=== PATIENT | female | born 1940 | race African-American/Black ===

== ENCOUNTER 2021-07-18 11:56 | Outpatient (REF) | payer MEDICARE, OTHER, SELFPAY ==
--- NOTE | ~2021-07-18 | MM_ITS ---
EXAMINATION: MM DIAGNOSTIC DIGITAL BREAST TOMOSYNTHESIS, BILATERAL US DIAGNOSTIC ULTRASOUND BREAST, LEFT CLINICAL INFORMATION: 81-year-old status post left lumpectomy 2002 for breast cancer. Patient notes firm palpable mass mid anterior upper breast. Due for yearly. Prior mammography 2016. COMPARISON: Mammography: 01/07/2017, 07/03/2016, 12/14/2015, 11/21/2014, 06/07/2013, 05/07/2012, 02/22/2011, 01/30/2010. TECHNIQUE: Digital breast tomosynthesis is performed in both the craniocaudal and mediolateral oblique views along with computer-aided detection (CAD). Synthesized 2D images are generated from the tomosynthesis. Additional views are obtained: Spot right MLO x2, spot left ML, magnification left CC, magnification left ML x4. Exam is technically challenging, patient wheelchair bound. Two technologists utilized to assist with positioning and imaging. Ultrasound left breast is performed with patient sitting in wheelchair. Patient is able to point to area of clinical concern at time of imaging. Grayscale imaging and color Doppler are performed in the area of palpable concern anterior mid upper left breast. Imaging also performed lateral and posterior left breast. FINDINGS: There are scattered areas of fibroglandular density (ACR BI-RADS breast composition Category b). The right breast is unremarkable. There are scattered parenchymal asymmetries posterior upper breasts similar to prior exams. There is no developing density or interval mass or architectural abnormality on the right. Left breast has post therapy changes with reduced breast size and scarring posterior outer breast. There is a 1.5 cm seroma/chronic organized hematoma at the lumpectomy site similar to remote prior exams 2012, 2011, 2009. There is mild shrinkage of the left breast since prior studies. There are interval segmental heterogeneous rodlike calcifications in the area of palpable concern anterior to mid central upper left breast 12:00 position. Ultrasound demonstrates short linear hypoechoic tracks radiating towards nipple with some scant internal color flow. These may be focal distended ducts. Some specular echoes are seen in this area likely corresponding to the segmental calcifications on mammography. Near this area, more posterior at 1:00 position is an irregular hypoechoic mass measuring 1.1 x 0.9 cm. This lesion appears separate from the probable chronic seroma/organized hematoma more posterior laterally near the chest wall and measuring 1.6 x 1.9 cm. Results are discussed with the patient at time of visit. Ultrasound-guided core biopsy of the left breast ductal changes and irregular mass is recommended (two areas). Results are called to medical accounts receivable specialist (Lina) for Dr. Guzman on 07/18/2021. MM/MM tomosynthesis diagnostic BI IMPRESSION: Left: -Interval segmental heterogeneous coarse calcifications anterior central 12:00 position. -Duct ectasia with some intraluminal color flow in area of palpable concern on ultrasound. -1 cm hypoechoic lesion also noted on ultrasound. -Probable chronic organized seroma/hematoma posterior lateral breast, chronic. Right -No mammographic evidence of malignancy. ASSESSMENT: BI-RADS 4: Suspicious RECOMMENDATION: Ultrasound-guided core biopsy left breast, 2 sites. This patient's information was entered into a reminder system with a target due date for their next mammogram.
== END 2021-07-18 11:57 | disposition home or self-care (01) ==
LOC: HO.MAMMO 11:56
PROVIDERS: Visit Provider Internal Medicine
DX: N63.25 Unspecified lump in the left breast, overlapping quadrants (principal)
CPT/HCPCS: 76642; 77062; 77066

== ENCOUNTER 2021-07-24 09:34 | Outpatient (REF) | payer MEDICARE, OTHER, SELFPAY ==
--- NOTE | ~2021-07-24 | MM_ITS ---
EXAMINATION: ULTRASOUND GUIDED CORE BIOPSY BREAST (TWO SITES), LEFT POST PROCEDURE DIGITAL MAMMOGRAM, LEFT CLINICAL INFORMATION: 81-year-old status post left lumpectomy 2002 for breast cancer. Patient notes firm palpable mass mid anterior upper breast. 2 findings left breast noted on recent mammographic and ultrasound workup for tissue sampling. COMPARISON: Mammography and targeted left breast ultrasound 07/18/2021. FINDINGS: Proper informed consent is obtained from the patient after discussion of the procedure, potential risks and complications, and alternatives. Patient was given an opportunity for questions. The patient appeared to understand. The patient consented to the procedure and signed the consent form. SPECIMEN A: LOCATION: Mid 12:00. GUIDANCE: Ultrasound-guided; aseptic technique. LESION: Short linear hypoechoic tracks with scattered calcifications and color flow. APPROACH: Medial lateral. ANESTHESIA: 10 mL carbonated 1% lidocaine. DERMATOTOMY: Single skin alma dermatotomy performed. NEEDLE: 14-gauge Achieve core biopsy device with 13.5-gauge co-axial guide needle. CORES: 5. CLIP: HydroMARK; shape: butterfly. SPECIMEN B: New anesthesia and biopsy supplies are used. LOCATION: Deep posterocentral medial and separate from chronic lumpectomy seroma/hematoma. GUIDANCE: Ultrasound-guided; aseptic technique. LESION: Irregular hypoechoic mass 1.1 x 0.9 cm. APPROACH: Medial lateral. ANESTHESIA: 15 mL carbonated 1% lidocaine. DERMATOTOMY: The same skin alma dermatotomy site from the first lesion is used to access the lesion for the second biopsy.. NEEDLE: 14-gauge Achieve core biopsy device with 13.5-gauge co-axial guide needle. CORES: 4. CLIP: HydroMARK; shape: open coil. POST PROCEDURE DIGITAL MAMMOGRAM: The post biopsy mammogram is performed in separate room using separate digital mammography equipment from the biopsy procedure. CC x2 and ML views are obtained. There are scattered areas of fibroglandular density (breast composition category: b). The clip markers are in position. There is a superficial oval smooth nodule posterior lateral to the butterfly clip that is related to the anesthesia. Otherwise, no gross hematoma. The patient tolerated the procedure well. No immediate complications. Home instructions reviewed with the patient. Final pathology results are pending. MM/MM tomosynthesis diagnostic LT IMPRESSION: 1. Status post ultrasound-guided core biopsy left breast (two sites). 2. Clips placed: HydroMARK; shape: butterfly and HydroMARK; shape: open coil 3. Pathology pending. An addendum report will be issued.
== END 2021-07-24 09:35 | disposition home or self-care (01) ==
LOC: HO.MAMMO 09:34
PROVIDERS: Pathology Anatomic Pathology & Clinical Pathology; PCP Internal Medicine; Visit Provider Surgery
DX: R92.8 Other abnormal and inconclusive findings on diagnostic imaging of breast (principal); E11.21 Type 2 diabetes mellitus with diabetic nephropathy; I10 Essential (primary) hypertension; N18.9 Chronic kidney disease, unspecified; E78.00 Pure hypercholesterolemia, unspecified; E55.9 Vitamin D deficiency, unspecified; Z85.3 Personal history of malignant neoplasm of breast; Z17.0 Estrogen receptor positive status [ER+]; Z79.4 Long term (current) use of insulin; Z79.899 Other long term (current) drug therapy
CPT/HCPCS: 19083; 19084; 36415; 77061; 77065; 88305; 88341; 88342; 88360; 88374; 99202; A4648

== ENCOUNTER → 2021-07-27 10:05 | Outpatient (BNVA) | payer MEDICARE, OTHER, SELFPAY | PROVIDERS: PCP Internal Medicine; Referring Provider Internal Medicine; Visit Provider Surgery | DX: C50.912 Malignant neoplasm of unspecified site of left female breast (principal); R92.8 Other abnormal and inconclusive findings on diagnostic imaging of breast | CPT/HCPCS: 99212 ==

== ENCOUNTER 2021-08-02 06:11 | Inpatient (IN) | payer MEDICARE, OTHER, SELFPAY ==
--- NOTE | 2021-07-31 | ECG_ITS ---
Test Reason : preop Blood Pressure : / mmHG Vent. Rate : 091 BPM Atrial Rate : 091 BPM P-R Int : 140 ms QRS Dur : 066 ms QT Int : 358 ms P-R-T Axes : 046 -34 049 degrees QTc Int : 440 ms Normal sinus rhythm Left axis deviation Minimal voltage criteria for LVH, may be normal variant ( R in aVL ) Abnormal ECG When compared with ECG of 03-NOV-2013 17:41, Premature atrial complexes are no longer Present Referred By: María Mast Electronically Signed By:Gonzalo Rodriguez
[2021-07-31 13:24] VITALS: BP 133/71; PULSE 80; RESP 18; O2SAT 99; BMI 22.2
--- NOTE | 2021-07-31 13:32 | HO.ANESPROP2 ---
Documented by User: María Mast NP 08/01/21 08:43 HPI - Anesthesia Eval Consult details Narrative: 81yo F for Left Mastectomy Modified Radical s/p Left breast mass excision years ago (2002, 2004) [facility] Active Problems Active Problems: All Active Problems (Updated 07/31/21 @ 13:23 by Denise Patel RN) Type 2 diabetes mellitus with hyperglycemia (Acute) Low back pain (Acute) Stage 3b chronic kidney disease (CKD) (Acute) Breast mass (Acute) Abnormal ultrasound of breast (Acute) Recurrent malignant neoplasm of left breast (Acute) Invasive ductal carcinoma of left breast (Acute) Breast cancer (Acute) Vitamin D deficiency (Acute) Diabetic nephropathy (Acute) Anemia (Acute) Hypercholesterolemia (Acute) Multiple sclerosis (Acute) Hypertension (Acute) Past Medical History Medical History (Updated 07/31/21 @ 13:23 by Denise Patel RN) Anemia Breast cancer Chronic kidney disease Diabetes Diabetic nephropathy DVT (deep venous thrombosis) Hypercholesterolemia Hypertension Multiple sclerosis Peripheral vascular disease Poor historian Renal artery stenosis Vitamin D deficiency Patient : No Family History Family History Father Hypertension Chronic kidney failure Mother Hypertension Diabetes Brother CKD (chronic kidney disease) Brother Gunshot wound Sister Throat cancer Son No problems noted. Daughter No problems noted. Family history of problems with anesthesia: No Surgical History Surgical History (Updated 07/31/21 @ 13:18 by Denise Patel RN) H/O colonoscopy History of breast lump/mass excision History of intravascular stent placement Social History Social History Housing: House Are you a primary transitional care liaison to a significant other at home: No Do you presently have visiting nurse or other home services: No Alcohol intake: never Patient Tobacco Use Status: Former Tobacco user Quit Date: as teenager Tobacco use type: Cigarette e-Cigarette/Vaping Use: Never Used Use of substances other than those prescribed or required for medical reasons: No Have you been hit, kicked, punched, or otherwise hurt by someone within the past year? If so, by whom?: No Are you DNR?: No Advance Directives: Yes Advance Directives Information Provided: Yes Advance Directives on File: Yes Advance Directives Date on File: 06/06/15 Recently lost weight without trying: No Eating poorly because of decreased appetite: No Nutrition Risks: Surgical patient >75years Patient : No Poor oral hygiene: No (upper & lower partials) Current occupational status: retired Narrative Narrative: No recent illness No CP/SOB with minimal activity. Mostly W/C bound d/t MS Meds Allergies Allergy/AdvReac Type Severity Reaction Status Date / Time No Known Allergies Allergy Verified 08/02/21 06:18 Home Medications Medication Instructions Recorded Confirmed Last Taken Type aspirin 81 mg tablet,delayed 81 mg PO DAILY 08/08/20 08/02/21 07/31/21 History release (Adult Aspirin Regimen) sennosides 8.6 mg-docusate sodium 1 tab-cap PO BEDTIME 08/08/20 07/31/21 Unknown History 50 mg capsule (Senna Plus) Exam Exam Date and Time: July 31, 2021 1332 Height,Weight and Vital Signs: Height 5 ft 6 in Weight 62.596 kg Last Vital Signs Pulse 80 07/31/21 13:24 Resp 18 07/31/21 13:24 BP 133/71 07/31/21 13:24 Pulse Ox 99 07/31/21 13:24 Pertinent Lab Results Pertinent Lab Results: 07/31/21 ECG 12 lead EKG Routine 07/31/21 14:10 BMP [Basic Metabolic Panel] Routine CBC NO DIFF [Complete Blood Count no Diff] Routine Laboratory Last Values WBC 5.7 X10*3/uL (4.8-10.8) 07/31/21 14:10 RBC 3.70 X10*6/uL (4.20-5.50) L 07/31/21 14:10 Hgb 11.2 g/dl (12.0-16.0) L 07/31/21 14:10 Hct 34.8 % (37.0-47.0) L 07/31/21 14:10 MCV 94.1 fL (80.0-98.0) 07/31/21 14:10 MCH 30.3 pg (27.0-33.0) 07/31/21 14:10 MCHC 32.2 g/dl (31.0-35.0) 07/31/21 14:10 RDW 18.6 % (11.0-16.0) H 07/31/21 14:10 Plt Count 213 X10*3/uL (160-400) 07/31/21 14:10 MPV 10.5 fL (9.4-12.3) 07/31/21 14:10 Absolute Nucleated RBC 0.000 X10*3/uL (0.0-0.012) 07/31/21 14:10 Nucleated RBC % (auto) 0.0 /100WBC (0.0-0.2) 07/31/21 14:10 Sodium 139 mmol/L (135-145) 07/31/21 14:10 Potassium 4.9 mmol/L (3.3-5.1) 07/31/21 14:10 Chloride 105 mmol/L (96-108) 07/31/21 14:10 Carbon Dioxide 22 mmol/L (22-29) 07/31/21 14:10 Anion Gap 17 (12-20) 07/31/21 14:10 BUN 53 mg/dL (9-16) H 07/31/21 14:10 Creatinine 1.76 mg/dL (0.5-1.4) H 07/31/21 14:10 Estim Creat Clear Calc 23.5 07/31/21 14:10 Estimated GFR 28 07/31/21 14:10 Random Glucose 79 mg/dL (60-115) 07/31/21 14:10 Calcium 9.4 mg/dL (8.4-10.2) 07/31/21 14:10 Narrative Narrative: EKG 07/2021 Vent. Rate : 091 BPM ? ? Atrial Rate : 091 BPM ?? P-R Int : 140 ms? QRS Dur : 066 ms ? ? QT Int : 358 ms ? ? ? P-R-T Axes : 046 -34 049 degrees ?? QTc Int : 440 ms ? Normal sinus rhythm Left axis deviation Minimal voltage criteria for LVH, may be normal variant ( R in aVL ) Abnormal ECG When compared with ECG of 03-NOV-2013 17:41, Premature atrial complexes are no longer Present Airway Mallampati Class: I TM Dist: >3cm Neck ROM: Full Partial: Upper and Lower Heart: RRR Lungs: CTAB Assessment and Plan Assessment Anesthesia Assessment: Anesthesia Plan Discussed and PAT Visit Final Anesthetic Review Family History of Problems with Anesthesia: No Documented by User: Corona Errol 08/02/21 15:01 PMFSH Past Medical History Medical History (Updated 07/31/21 @ 13:23 by Denise Patel RN) Anemia Breast cancer Chronic kidney disease Diabetes Diabetic nephropathy DVT (deep venous thrombosis) Hypercholesterolemia Hypertension Multiple sclerosis Peripheral vascular disease Poor historian Renal artery stenosis Vitamin D deficiency Family History Family History Father Hypertension Chronic kidney failure Mother Hypertension Diabetes Brother CKD (chronic kidney disease) Brother Gunshot wound Sister Throat cancer Son No problems noted. Daughter No problems noted. Surgical History Surgical History (Updated 07/31/21 @ 13:18 by Denise Patel RN) H/O colonoscopy History of breast lump/mass excision History of intravascular stent placement History of Problems with Anesthesia: No Social History Social History Housing: House Are you a primary transitional care liaison to a significant other at home: No Do you presently have visiting nurse or other home services: No Alcohol intake: never Patient Tobacco Use Status: Former Tobacco user Quit Date: as teenager Tobacco use type: Cigarette e-Cigarette/Vaping Use: Never Used Use of substances other than those prescribed or required for medical reasons: No Have you been hit, kicked, punched, or otherwise hurt by someone within the past year? If so, by whom?: No Are you DNR?: No Advance Directives: Yes Advance Directives Information Provided: Yes Advance Directives on File: Yes Advance Directives Date on File: 06/06/15 Recently lost weight without trying: No Eating poorly because of decreased appetite: No Nutrition Risks: Surgical patient >75years Patient : No Poor oral hygiene: No (upper & lower partials) Current occupational status: retired Meds Allergies Allergy/AdvReac Type Severity Reaction Status Date / Time No Known Allergies Allergy Verified 08/02/21 06:18 Home Medications Medication Instructions Recorded Confirmed Last Taken Type aspirin 81 mg tablet,delayed 81 mg PO DAILY 08/08/20 08/02/21 07/31/21 History release (Adult Aspirin Regimen) sennosides 8.6 mg-docusate sodium 1 tab-cap PO BEDTIME 08/08/20 07/31/21 Unknown History 50 mg capsule (Senna Plus) Exam Airway Loose/Missing/Broken Teeth: Yes Assessment and Plan Assessment Anesthesia Assessment: Chart Reviewed Final Anesthetic Review History of Problems with Anesthesia: No NPO: Yes ASA Class: III Final Preanesthetic Review: Meds/Allgs Chart Reviewed, Consent Obtained/Reviewed and Anes Risks/Benef Reviewed Patient Risk: High Procedure Risk: Intermediate Anesthetic Plan Anesthetic Plan: GA Disposition: Inp. Admit - Standard Bed
[2021-07-31 14:43] LABS: Hematocrit 34.8 % (37.0-47.0); Hemoglobin 11.2 g/dl (12.0-16.0); Mean Corpuscular HGB Conc 32.2 g/dl (31.0-35.0); Mean Corpuscular Hemoglobin 30.3 pg (27.0-33.0); Mean Corpuscular Volume 94.1 fL (80.0-98.0); Mean Platelet Volume 10.5 fL (9.4-12.3); Platelet Count 213 X10*3/uL (160-400); Red Cell Distribution Width 18.6 % (11.0-16.0); White Blood Count 5.7 X10*3/uL (4.8-10.8)
[2021-07-31 15:12] LABS: Anion Gap 17 (12-20); Blood Urea Nitrogen 53 mg/dL (9-16); Calcium 9.4 mg/dL (8.4-10.2); Carbon Dioxide 22 mmol/L (22-29); Chloride 105 mmol/L (96-108); Creatinine Clr Calc Pharmacy 23.5; Estimated Glomerular Filt Rate 28; Glucose Random 79 mg/dL (60-115); Potassium 4.9 mmol/L (3.3-5.1); Sodium 139 mmol/L (135-145)
[2021-08-02] VITALS (18 sets, daily range): BP systolic 130–166; BP diastolic 70–82; PULSE 58–96; RESP 14–17; TEMP 36.1–36.9; O2SAT 95–100
[2021-08-02 06:50] LABS: Glucose, Whole Blood 109 mg/dL (60-115)
[2021-08-02 07:29] LABS: COVID-19 Test Negative (Negative)
[2021-08-02] MEDS: Lactated Ringers 1,000 ML 100 ML IVCONT (07:32)
--- NOTE | 2021-08-02 09:31 | P.OP_ITS ---
Operative Note Operative Note Date of Service: 08/02/21 Narrative: Preoperative diagnosis:Recurrent left breast invasive ductal carcinoma Postoperative diagnosis: recurrent left breast invasive ductal carcinoma Procedure: left breast modified radical mastectomy Surgeon: Greg Junior MD Senior Analyst Programmer: Liliana Sidhu PA-C; YESSICA Mckinney Anesthesia: general LMA Indications for procedure: 81-year-old female patient with a prior history of invasive ductal carcinoma , ER /UT, HER2 David negative of the left breast in 2002, status post left breast lumpectomy, sentinel node biopsy, followed by chemotherapy and radiation therapy, recently identified as having a palpable ma ss in the left breast at the upper portion of the left breast. Mammogram and ultrasound confirmed a suspicious mass and ultrasound-guided core biopsy confirmed a recurrent invasive ductal carcinoma, ER/UT positive HER2 David negative. Operative findings: large palpable mass in the 12 o'clock position extending below in the left breast Specimen: left breast and axilla Estimated blood loss: 20 mL Complications: none Procedure details: patient was brought to the OR and placed in a supine position. After administering general anesthesia the patient's left breast and chest wall were prepped with ChloraPrep and draped in a sterile fashion. A surgical time-out was called and the consent confirmed. Patient received preoperative antibiotics and Venodyne boots were in place. Local anesthesia consisting of 1% lidocaine mixed with 0.5% Sensorcaine was infiltrated circumferentially around the left breast. An elliptical incision was then created to include the palpable breast mass and the previous lower outer quadrant incision from the medial lower sternum extending laterally to the axilla. Incisions were continued into the subcutaneous tissue. Beginning in the superior flap a skin flap was then created extending superiorly between the breast capsule and subcutaneous tissue up to the clavicle. The inferior flap was then dissected down to the lower sternal edge and chest wall. Laterally the dissection was continued to the edge of the breast tissue was then dissected off the pectoralis using electrocautery. hemostasis was maintained using electrocautery and free ties of 3-0 Polysorb suture. The dissection was continued from superiorly medially towards the inferior lateral chest wall. At the edge of the pectoralis muscle dissection was continued behind the pectoralis major muscle down to the pectoralis minor muscle. Laterally the dissection was continued down to the latissimus Loco muscle up towards the axilla. Both the long thoracic and thoracodorsal nerves were identified easily within the axillary compartment. The axillary vein was also identified and a core of lymphatic tissue maintained along the vein. The axilla was then dissected around the intercostal brachial nerve which was preserved. Level 1 level to lymphatic tissue was then dissected using both electrocautery and sharp dissection. The entire breast tissue was then removed and sent to pathology for further examination. The axilla was marked with a long suture in the superior margin marked with a short suture. The wounds were irrigated thoroughly with saline solution. Wounds were again checked for hemostasis which was assured again using electrocautery. Two 7. Lexa-Cardenas flat drains were then placed 1 into the superior skin flap in the 2nd extending up to the axilla. These were connected to bulb suction secured to the chest wall using 3-0 nylon sutures. Dermis and subcutaneous tissue were then reapproximated using interrupted 3 upon Polysorb sutures. Skin was then closed using skin sarah. Sterile dressings were then applied. a breast binder was then applied. The patient tolerated the procedure well. Sponge, instrument, and needle counts reported as correct. The patient was transferred to PACU in stable condition. Breast Axillary Dissection Resection was performed within the boundaries of the axillary vein, chest wall (serratus anterior), and latissimus dorsi: Yes The long thoracic and thoracodorsal nerves were spared during dissection: Yes Attempts were made to spare the intercostobrachial nerves during dissection if possible: Yes If one or more level III nodes is/are removed, then document why: n/a General Surg. - Synoptic Notes Breast Axillary Dissection Resection was performed within the boundaries of the axillary vein, chest wall (serratus anterior), and latissimus dorsi: Yes The long thoracic and thoracodorsal nerves were spared during dissection: Yes Attempts were made to spare the intercostobrachial nerves during dissection if possible: Yes If one or more level III nodes is/are removed, then document why: n/a
[2021-08-02] MEDS: ondansetron HCL 4 MG/2 ML VIAL IVPUSH (10:17)
[2021-08-02] MEDS: Dextrose 5 % and Lactated Ring 1,000 ML 100 ML IVCONT (16:51)
[2021-08-02] MEDS: 0.9 % Sodium Chloride Flush 3 ML SYRINGE IVFLUSH (17:10)
[2021-08-02] MEDS: Sennosides/Docusate Sodium TABLET 1 TAB PO (21:09)
[2021-08-02] MEDS: Zolpidem Tartrate 5 MG TABLET PO (21:09)
[2021-08-03] VITALS: BP 119/73; PULSE 97; RESP 17; TEMP 36.3; O2SAT 100
[2021-08-03] MEDS: Dextrose 5 % and Lactated Ring 1,000 ML 100 ML IVCONT (02:58)
[2021-08-03 06:24] LABS: MANUAL DIFF FLAG NO
[2021-08-03 06:27] LABS: Hemoglobin 8.4 g/dl (12.0-16.0); Imm Gran Abs Auto 0.06 X10*3/uL (0.00-0.03); Imm Gran Pct Auto 0.6 % (0.0-0.4); Lymphocytes Absolute Auto 0.9 X10*3/uL (1.2-4.9); Lymphocytes Percent Auto 8.8 % (20-40); Mean Corpuscular HGB Conc 32.3 g/dl (31.0-35.0); Mean Corpuscular Hemoglobin 30.8 pg (27.0-33.0); Mean Corpuscular Volume 95.2 fL (80.0-98.0); Mean Platelet Volume 10.9 fL (9.4-12.3); Monocytes Absolute Auto 1.1 X10*3/uL (0.1-1.2); Monocytes Percent Auto 10.7 % (2-11); NRBC Pct Auto 0.4 /100WBC (0.0-0.2); Neutrophils Absolute Auto 8.4 x10*3/uL (2.0-8.3); Neutrophils Percent Auto 79.9 % (45-73); Platelet Count 151 X10*3/uL (160-400); Red Blood Count 2.73 X10*6/uL (4.20-5.50); Red Cell Distribution Width 18.4 % (11.0-16.0); White Blood Count 10.5 X10*3/uL (4.8-10.8)
--- NOTE | 2021-08-03 06:48 | HO.POSTANES ---
Post Anesthesia Evaluation Post Anesthesia Evaluation Vital Signs: Vital Signs Temp Pulse Resp BP Pulse Ox 08/03/21 00:00 97.3 F 97 17 119/73 100 Anesthesia: General Mental Status: Awake Pain Control: Satisfactory Nausea/Vomiting: None Hydration: Adequate Anesthesia-Related Issues: No Anes. Related Issues
[2021-08-03 06:54] LABS: Anion Gap 13 (12-20); Blood Urea Nitrogen 56 mg/dL (9-16); Calcium 8.8 mg/dL (8.4-10.2); Carbon Dioxide 23 mmol/L (22-29); Chloride 106 mmol/L (96-108); Creatinine Clr Calc Pharmacy 15.4; Estimated Glomerular Filt Rate 17; Glucose Random 287 mg/dL (60-115); Potassium 5.3 mmol/L (3.3-5.1); Sodium 137 mmol/L (135-145)
[2021-08-03] MEDS: Cholecalciferol (Vitamin D3) 25 MCG TABLET 50 MCG PO (07:37)
[2021-08-03] MEDS: amLODIPine Besylate 5 MG TABLET PO (07:38)
[2021-08-03] MEDS: Atorvastatin Calcium 10 MG TABLET PO (07:38)
[2021-08-03 07:41] VITALS: BP 122/70; PULSE 96; RESP 15; TEMP 36; O2SAT 100
--- NOTE | 2021-08-03 10:22 | HO.PM.IMCN ---
History of Present Illness Data of Consult Service Date: 08/03/21 Primary Care Provider: Kingston Guzman MD HPI Reason for consult: Hyperglycemia This is an 81 yo F who is admitted under the general surgical services s/p L modified radical mastecomy for recurrent L breast invasive ductal carcinoma. Medical consult requested for help in managing her elevated blood sugars. The patient is seen and examined in her room. She reports that her pain is well controlled currently. She has no complaints. In regards to her diabetes, she reports that she was previously on oral medications, but her DM was controlled and has been off them since last year. (Chart review reveals that she was previously on Lantus but this was discontinued at the PCP visit due to A1C of 5 -- July 05, 2021). 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 Review of Systems Review of Systems: negative except HPI PMFSH Medical History Anemia Breast cancer Chronic kidney disease Diabetes Diabetic nephropathy DVT (deep venous thrombosis) Hypercholesterolemia Hypertension Multiple sclerosis Peripheral vascular disease Poor historian Renal artery stenosis Vitamin D deficiency Family History Father Hypertension Chronic kidney failure Mother Hypertension Diabetes Brother CKD (chronic kidney disease) Brother Gunshot wound Sister Throat cancer Son No problems noted. Daughter No problems noted. Surgical History H/O colonoscopy History of breast lump/mass excision History of intravascular stent placement Social History Housing: House Are you a primary career services assistant to a significant other at home: No Do you presently have visiting nurse or other home services: No Alcohol intake: never Patient Tobacco Use Status: Former Tobacco user Quit Date: as teenager Tobacco use type: Cigarette e-Cigarette/Vaping Use: Never Used Use of substances other than those prescribed or required for medical reasons: No Currently Displaying Signs/Symptoms of Drug Intoxication Withdrawal: No Have you been hit, kicked, punched, or otherwise hurt by someone within the past year? If so, by whom?: No Are you DNR?: No Advance Directives: Yes Advance Directives Information Provided: Yes Advance Directives on File: Yes Advance Directives Date on File: 06/06/15 Recently lost weight without trying: No Eating poorly because of decreased appetite: No Nutrition Risks: Surgical patient >75years Patient : No Poor oral hygiene: No (upper & lower partials) Current occupational status: retired Meds Allergies Allergy/AdvReac Type Severity Reaction Status Date / Time No Known Allergies Allergy Verified 08/02/21 06:18 Active Medications: Current Medications Acetaminophen (Acetaminophen 325 Mg Tablet) 650 mg PO Q6H PRN PRN Reason: Pain, Mild (Pain Scale 1-3) Amlodipine Besylate (Amlodipine Besylate 5 Mg Tablet) 5 mg PO DAILY [facility]; Protocol Last Admin: 08/03/21 07:38 Dose: 5 mg Documented by: Aspirin (Aspirin Enteric Coated 81 Mg Tablet.) 81 mg PO DAILY [facility] Atorvastatin Calcium (Atorvastatin Calcium 10 Mg Tablet) 10 mg PO DAILY [facility] Last Admin: 08/03/21 07:38 Dose: 10 mg Documented by: Dextrose (Dextrose 50 % 25 Gm/50 Ml Syringe) 25 gm IVPUSH Q15M PRN; Protocol PRN Reason: per Hypoglycemia Standing Ord. Glucose (Glucose Gel 15 Gm Gel..Gram.) 15 gm PO Q15M PRN; Protocol PRN Reason: per Hypoglycemia Standing Ord. Hydromorphone HCl (Hydromorphone Hcl 1 Mg/Ml Syringe) 0.5 mg IVPUSH Q4H PRN; Protocol PRN Reason: Pain, Severe (Pain Scale 7-10) Lactated Ringer's (Lr) 1,000 mls @ 100 mls/hr IVCONT .Q10H [facility] Insulin Human Lispro (Insulin Lispro 100 Unit/Ml 3 Ml Vial) 0 unit SUBCUT QIDACHS [facility]; Protocol Stop: 08/04/21 08:23 Ondansetron HCl (Ondansetron Hcl 4 Mg/2 Ml Vial) 4 mg IVPUSH Q8H PRN PRN Reason: Nausea Oxycodone HCl (Oxycodone Hcl Immed Release 5 Mg Tablet) 5 mg PO Q6H PRN PRN Reason: Pain, Moderate (Pain Scale 4-6 Senna/Docusate Sodium (Sennosides/Docusate Sodium Tablet) 1 tab PO BEDTIME [facility] Last Admin: 08/02/21 21:09 Dose: 1 tab Documented by: Sodium Chloride (0.9 % Sodium Chloride Flush 3 Ml Syringe) 3 ml IVFLUSH QSHIFT [facility] Last Admin: 08/03/21 09:07 Dose: Not Given Documented by: Vitamin D (Cholecalciferol (Vitamin D3) 25 Mcg Tablet) 50 mcg PO DAILY [facility] Last Admin: 08/03/21 07:37 Dose: 50 mcg Documented by: Zolpidem Tartrate (Zolpidem Tartrate 5 Mg Tablet) 5 mg PO BEDTIME PRN PRN Reason: Insomnia Last Admin: 08/02/21 21:09 Dose: 5 mg Documented by: Home Medications Medication Instructions Recorded Confirmed Last Taken Type aspirin 81 mg tablet,delayed 81 mg PO DAILY 08/08/20 08/02/21 07/31/21 History release (Adult Aspirin Regimen) sennosides 8.6 mg-docusate sodium 1 tab-cap PO BEDTIME 08/08/20 07/31/21 Unknown History 50 mg capsule (Senna Plus) Physical Exam Vital Signs and Narrative: Vital Signs: Last Vital Signs Temp 96.8 F 08/03/21 07:41 Pulse 96 08/03/21 07:41 Resp 15 08/03/21 07:41 BP 122/70 08/03/21 07:41 Pulse Ox 100 08/03/21 07:41 BMI result Body Mass Index 22.2 Const: Other: General - no acute distress, appears comfortable Cardiovascular - regular rate and rhythm, S1-S2 Lungs - normal respiratory effort, clear to auscultation bilaterally, no wheezing Abdomen - soft, nontender, no rebound or guarding Extremities - no edema bilaterally Neuro - awake and alert Results Labs CBC and Chem 7: 08/03/21 05:48 08/03/21 05:48 Labs: Laboratory Results - last 24 hr 08/03/21 08/03/21 05:48 05:48 MCV 95.2 MCH 30.8 MCHC 32.3 RDW 18.4 H Plt Count 151 L D MPV 10.9 Immature Gran % (Auto) 0.6 H Neut % (Auto) 79.9 H Lymph % (Auto) 8.8 L Cooper % (Auto) 10.7 Eos % (Auto) 0.0 Baso % (Auto) 0.0 Lymph # (Auto) 0.9 L Cooper # (Auto) 1.1 Eos # (Auto) 0.0 Baso # (Auto) 0.0 Abs Immat Gran (auto) 0.06 H Absolute Neuts (auto) 8.4 H Absolute Nucleated RBC 0.040 H Nucleated RBC % (auto) 0.4 H Anion Gap 13 Estim Creat Clear Calc 15.4 Estimated GFR 17 Random Glucose 287 H Calcium 8.8 D Assessment and Plan (1) Acute kidney injury superimposed on CKD: Status: Acute Plan This is an 81 yo F with a PMH of DM, 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 Medical consult requested for management of her elevated blood glucose 1. DM Last A1C is 5.0; it appears she was taken off Lanuts at that time Glucose on AM labs found to be 287. POC + sliding scale QIDAC 2. CHIDI on CKD stage 3/4 SCr 1.76 on 07/31/21; now 2.67 Will give IV hydration and repeat tomorrow if continues to rise, may need to get nephrology involved 3. HTN stable, continue norvasc; if bp drops, may need to hold antihypertensives 4. Anemia significant drop in her h/h monitor and consider PRBC transfusion, especially below 8 Will follow with you.
[2021-08-03] MEDS: Lactated Ringers 1,000 ML 100 ML IVCONT (10:54)
[2021-08-03 11:31] LABS: Glucose, Whole Blood 285 mg/dL (60-115)
[2021-08-03] MEDS: Insulin Lispro 100 UNIT/ML 3 ML VIAL SUBCUT ×2 (11:53→20:26)
--- NOTE | 2021-08-03 12:46 | P.CDIC_ITS ---
CDI Concurrent Query Documentation Clarification: PHYSICIAN'S DOCUMENTATION REQUEST Date of Query: 08/03/21 1246 Patient Name: Shukri Adhikari Admit Date: 08/02/21 Dear Doctor, A review of the medical record indicates additional documentation may be needed. Please review below and update the documentation accordingly. Clinical Indicators: Risk Factors/Clinical Indicators/Treatments H/H on 07/31/21: 11.2/34.8 H/H on 08/03/21: 8.4/26.0 s/p 08/02/21 L breast modified radical mastectomy Per medical note 08/03/21: Anemia Based on the above, could you clarify in the Progress Notes which of the following is the most likely type of anemia you are evaluating, treating, and/or monitoring? * Acute blood loss anemia * Acute blood loss anemia with baseline chronic anemia (specify type) * Anemia of chronic disease- indicate if neoplastic disease, CKD, or other * Chronic iron deficiency anemia due to blood loss * Other ? please specify * Unable to determine Use of terms such as suspected, likely, concern for, or probable (associated with a specific diagnosis that is being evaluated, monitored, or treated as if it exists) are acceptable and can be coded in the inpatient setting, when documented at the time of discharge. Thank you, Gloria Vaz RN Extension: [phone] Please use your independent medical judgment in providing your response. THIS QUERY IS PART OF THE PERMANENT MEDICAL RECORD Provider Response: Anemia (Anemia of chronic disease, malignancy, recurrent breast cancer)
[2021-08-03 13:53] VITALS: BMI 22.2
--- NOTE | 2021-08-03 15:27 | P.PNGS_ITS ---
Subjective Subjective Date of Service: 08/03/21 Interval history: Feels overall well. Some pain at incision site but comfortable. Tolerating solid diet. Physical Exam Vital Signs: Vital Signs: Last Vital Signs Temp 96.8 F 08/03/21 07:41 Pulse 96 08/03/21 07:41 Resp 15 08/03/21 07:41 BP 122/70 08/03/21 07:41 Pulse Ox 100 08/03/21 07:41 BMI result Body Mass Index 22.2 Const: Orientation/consciousness: patient oriented x3 Chest: Other: left mastectomy site with dressing c/d/i, some mild incisional and axillary tenderness MATTEO drains with sanguineous drainage Resp: Effort & Inspection: normal respiratory effort Skin: Other: warm and dry General skin exam: no rashes or lesions noted Neuro: General: patient oriented x3 Objective Data Active Medications Acetaminophen (Acetaminophen 325 Mg Tablet) 650 mg PO Q6H PRN PRN Reason: Pain, Mild (Pain Scale 1-3) Amlodipine Besylate (Amlodipine Besylate 5 Mg Tablet) 5 mg PO DAILY [facility]; Protocol Last Admin: 08/03/21 07:38 Dose: 5 mg Documented by: CARLOS Aspirin (Aspirin Enteric Coated 81 Mg Tablet.) 81 mg PO DAILY [facility] Atorvastatin Calcium (Atorvastatin Calcium 10 Mg Tablet) 10 mg PO DAILY [facility] Last Admin: 08/03/21 07:38 Dose: 10 mg Documented by: CARLOS Dextrose (Dextrose 50 % 25 Gm/50 Ml Syringe) 25 gm IVPUSH Q15M PRN; Protocol PRN Reason: per Hypoglycemia Standing Ord. Glucose (Glucose Gel 15 Gm Gel..Gram.) 15 gm PO Q15M PRN; Protocol PRN Reason: per Hypoglycemia Standing Ord. Hydromorphone HCl (Hydromorphone Hcl 1 Mg/Ml Syringe) 0.5 mg IVPUSH Q4H PRN; Protocol PRN Reason: Pain, Severe (Pain Scale 7-10) Lactated Ringer's (Lr) 1,000 mls @ 100 mls/hr IVCONT .Q10H [facility] Last Admin: 08/03/21 10:54 Dose: 100 mls/hr Documented by: LAURENCE Insulin Human Lispro (Insulin Lispro 100 Unit/Ml 3 Ml Vial) 0 unit SUBCUT QIDACHS [facility]; Protocol Stop: 08/04/21 08:23 Last Admin: 08/03/21 11:53 Dose: 6 unit Documented by: CARLOS Ondansetron HCl (Ondansetron Hcl 4 Mg/2 Ml Vial) 4 mg IVPUSH Q8H PRN PRN Reason: Nausea Oxycodone HCl (Oxycodone Hcl Immed Release 5 Mg Tablet) 5 mg PO Q6H PRN PRN Reason: Pain, Moderate (Pain Scale 4-6 Senna/Docusate Sodium (Sennosides/Docusate Sodium Tablet) 1 tab PO BEDTIME [facility] Last Admin: 08/02/21 21:09 Dose: 1 tab Documented by: ESME Sodium Chloride (0.9 % Sodium Chloride Flush 3 Ml Syringe) 3 ml IVFLUSH QSHIFT [facility] Last Admin: 08/03/21 09:07 Dose: Not Given Documented by: LAURENCE Non-Admin Reason: IV Running Vitamin D (Cholecalciferol (Vitamin D3) 25 Mcg Tablet) 50 mcg PO DAILY [facility] Last Admin: 08/03/21 07:37 Dose: 50 mcg Documented by: CARLOS Zolpidem Tartrate (Zolpidem Tartrate 5 Mg Tablet) 5 mg PO BEDTIME PRN PRN Reason: Insomnia Last Admin: 08/02/21 21:09 Dose: 5 mg Documented by: ESME Labs CBC & Chem 7: 08/03/21 05:48 08/03/21 05:48 Labs: Laboratory Results - last 24 hr 08/03/21 08/03/21 08/03/21 05:48 05:48 11:27 MCV 95.2 MCH 30.8 MCHC 32.3 RDW 18.4 H Plt Count 151 L D MPV 10.9 Immature Gran % (Auto) 0.6 H Neut % (Auto) 79.9 H Lymph % (Auto) 8.8 L Randolph % (Auto) 10.7 Eos % (Auto) 0.0 Baso % (Auto) 0.0 Lymph # (Auto) 0.9 L Randolph # (Auto) 1.1 Eos # (Auto) 0.0 Baso # (Auto) 0.0 Abs Immat Gran (auto) 0.06 H Absolute Neuts (auto) 8.4 H Absolute Nucleated RBC 0.040 H Nucleated RBC % (auto) 0.4 H Anion Gap 13 Estim Creat Clear Calc 15.4 Estimated GFR 17 POC Glucose 285 H Random Glucose 287 H Calcium 8.8 D Procedures Date of Service Date of Service: 08/03/21 Progress Note: A&P Assessment and plan (1) Acute kidney injury superimposed on CKD: Status: Acute (2) Type 2 diabetes mellitus with hyperglycemia: Status: Acute (3) Recurrent malignant neoplasm of left breast: Status: Acute Plan 81 year old female with invasive ductal carcinoma left breast now POD #1 s/p modified radical mastectomy. She is doing well post op. Pain controlled. Dressing c/d/i. MATTEO drains with sanguineous drainage. H/H drifted this am. CHIDI on labs, on IVF. Hospitalists following. Possible d/c to home in next 1-2 days with VNA services for drain care if H/H remains stable and CHIDI improve. Patient comfortable with plan. Fall Risk Details Current Medications: Current Medications Acetaminophen (Acetaminophen 325 Mg Tablet) 650 mg PO Q6H PRN PRN Reason: Pain, Mild (Pain Scale 1-3) Amlodipine Besylate (Amlodipine Besylate 5 Mg Tablet) 5 mg PO DAILY [facility]; Protocol Last Admin: 08/03/21 07:38 Dose: 5 mg Documented by: Aspirin (Aspirin Enteric Coated 81 Mg Tablet.) 81 mg PO DAILY [facility] Atorvastatin Calcium (Atorvastatin Calcium 10 Mg Tablet) 10 mg PO DAILY [facility] Last Admin: 08/03/21 07:38 Dose: 10 mg Documented by: Dextrose (Dextrose 50 % 25 Gm/50 Ml Syringe) 25 gm IVPUSH Q15M PRN; Protocol PRN Reason: per Hypoglycemia Standing Ord. Glucose (Glucose Gel 15 Gm Gel..Gram.) 15 gm PO Q15M PRN; Protocol PRN Reason: per Hypoglycemia Standing Ord. Hydromorphone HCl (Hydromorphone Hcl 1 Mg/Ml Syringe) 0.5 mg IVPUSH Q4H PRN; Protocol PRN Reason: Pain, Severe (Pain Scale 7-10) Lactated Ringer's (Lr) 1,000 mls @ 100 mls/hr IVCONT .Q10H [facility] Last Admin: 08/03/21 10:54 Dose: 100 mls/hr Documented by: Insulin Human Lispro (Insulin Lispro 100 Unit/Ml 3 Ml Vial) 0 unit SUBCUT QIDACHS [facility]; Protocol Stop: 08/04/21 08:23 Last Admin: 08/03/21 11:53 Dose: 6 unit Documented by: Ondansetron HCl (Ondansetron Hcl 4 Mg/2 Ml Vial) 4 mg IVPUSH Q8H PRN PRN Reason: Nausea Oxycodone HCl (Oxycodone Hcl Immed Release 5 Mg Tablet) 5 mg PO Q6H PRN PRN Reason: Pain, Moderate (Pain Scale 4-6 Senna/Docusate Sodium (Sennosides/Docusate Sodium Tablet) 1 tab PO BEDTIME [facility] Last Admin: 08/02/21 21:09 Dose: 1 tab Documented by: Sodium Chloride (0.9 % Sodium Chloride Flush 3 Ml Syringe) 3 ml IVFLUSH QSHIFT [facility] Last Admin: 08/03/21 09:07 Dose: Not Given Documented by: Vitamin D (Cholecalciferol (Vitamin D3) 25 Mcg Tablet) 50 mcg PO DAILY [facility] Last Admin: 08/03/21 07:37 Dose: 50 mcg Documented by: Zolpidem Tartrate (Zolpidem Tartrate 5 Mg Tablet) 5 mg PO BEDTIME PRN PRN Reason: Insomnia Last Admin: 08/02/21 21:09 Dose: 5 mg Documented by: Time Spent With Patient Time: Total time spent is greater than 50% in coordination of care (as documented) at patient's floor/unit and/or counseling patient: Time with patient: 15 - 24 minutes Quality Stroke Does the patient have a stroke diagnosis?: No VTE Prior VTE?: No VTE Risk Level:: Surgical - high VTE Device Contraindication: N/A - Device Ordered VTE Drug Contraindication: Treatment Not Indicated
[2021-08-03 15:28] VITALS: BP 116/55; PULSE 101; RESP 18; TEMP 37.1; O2SAT 99
--- NOTE | 2021-08-03 15:48 | MHC.CM.PN ---
PATIENT LIVES ALONE. HER HCP/SON (ON FILE AND VERIFIED) ASSISTS WITH SOME ADLS. NO VNA OR ELDER SERVICES IN THE HOME. SHE REPORTS BEING COVID-19 VACCINATED AND A BOOSTER (PFIZER SERIES) BUT HER CARD IS AT HOME AND SHE IS UNABLE TO RECALL THE DATES. 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 CASE MANAGEMENT FOLLOWING FOR DISCHARGE PLANS. IMM 08/03 IN CHART.
[2021-08-03 16:35] LABS: Glucose, Whole Blood 150 mg/dL (60-115)
[2021-08-03 20:04] LABS: Glucose, Whole Blood 179 mg/dL (60-115)
[2021-08-03] MEDS: Sennosides/Docusate Sodium TABLET 1 TAB PO (20:26)
[2021-08-03 23:26] VITALS: BP 116/54; PULSE 99; RESP 18; TEMP 37.3; O2SAT 100
[2021-08-04] VITALS (7 sets, daily range): BP systolic 103–135; BP diastolic 48–69; PULSE 86–100; RESP 16–20; TEMP 36.4–37.2; O2SAT 98–100
[2021-08-04 06:17] LABS: MANUAL DIFF FLAG NO
[2021-08-04 06:24] LABS: Basophils Percent Auto 0.3 % (0-2); Eosinophils Absolute Auto 0.3 X10*3/uL (0.0-0.4); Eosinophils Percent Auto 3.3 % (0-4); Imm Gran Abs Auto 0.05 X10*3/uL (0.00-0.03); Imm Gran Pct Auto 0.5 % (0.0-0.4); Lymphocytes Absolute Auto 1.9 X10*3/uL (1.2-4.9); Lymphocytes Percent Auto 20.6 % (20-40); Mean Corpuscular HGB Conc 32.5 g/dl (31.0-35.0); Mean Corpuscular Hemoglobin 30.5 pg (27.0-33.0); Mean Corpuscular Volume 93.7 fL (80.0-98.0); Mean Platelet Volume 11.1 fL (9.4-12.3); Monocytes Percent Auto 10.7 % (2-11); NRBC Pct Auto 0.3 /100WBC (0.0-0.2); Neutrophils Absolute Auto 5.9 x10*3/uL (2.0-8.3); Neutrophils Percent Auto 64.6 % (45-73); Platelet Count 128 X10*3/uL (160-400); Red Blood Count 2.23 X10*6/uL (4.20-5.50); Red Cell Distribution Width 18.5 % (11.0-16.0); White Blood Count 9.1 X10*3/uL (4.8-10.8)
[2021-08-04 06:36] LABS: Hematocrit 20.9 % (37.0-47.0); Hemoglobin 6.8 g/dl (12.0-16.0)
[2021-08-04 06:54] LABS: Anion Gap 11 (12-20); Blood Urea Nitrogen 63 mg/dL (9-16); Calcium 8.3 mg/dL (8.4-10.2); Carbon Dioxide 26 mmol/L (22-29); Chloride 105 mmol/L (96-108); Creatinine Clr Calc Pharmacy 18.7; Estimated Glomerular Filt Rate 21; Glucose Random 112 mg/dL (60-115); Potassium 5.1 mmol/L (3.3-5.1); Sodium 137 mmol/L (135-145)
[2021-08-04 07:40] LABS: Glucose, Whole Blood 109 mg/dL (60-115)
[2021-08-04] MEDS: Lactated Ringers 1,000 ML 100 ML IVCONT ×2 (09:41→23:30)
[2021-08-04] MEDS: amLODIPine Besylate 5 MG TABLET PO (09:51)
[2021-08-04] MEDS: Cholecalciferol (Vitamin D3) 25 MCG TABLET 50 MCG PO (09:51)
[2021-08-04] MEDS: Atorvastatin Calcium 10 MG TABLET PO (09:51)
[2021-08-04] MEDS: Aspirin Enteric Coated 81 MG TABLET.DR PO (09:51)
[2021-08-04 11:43] LABS: Glucose, Whole Blood 243 mg/dL (60-115)
--- NOTE | 2021-08-04 12:35 | P.PNIM_ITS ---
Subjective Subjective Date of Service: 08/04/21 Interval History: seen and examined this morning s/p left breast mastectomy 2/10 H/H dropped overnight feels well, no shortness of breath, weakness, dizziness, chest pain tolerating diet, pain well controlled Review of Systems Review of Systems: Yes all other systems are reviewed and are negative Constitutional Constitutional: Denies chills, Denies fever(s) and Denies weakness Cardiovascular Cardiovascular: Denies palpitations and Denies dyspnea Respiratory Respiratory: Denies dyspnea Gastrointestinal Gastrointestinal: Denies abdominal pain, Denies nausea and Denies vomiting Neurologic Neurologic: Denies weakness Endocrine Endocrine: Denies palpitations Physical Exam Vital Signs: Vital Signs: Last Vital Signs Temp 98 F 08/04/21 10:16 Pulse 88 08/04/21 10:16 Resp 16 08/04/21 10:16 BP 121/54 L 08/04/21 10:16 Pulse Ox 98 08/04/21 08:00 BMI result Body Mass Index 22.2 Const: General: cooperative, healthy appearing, comfortable, no acute distress, alert and awake Nutritional Appearance: thin Eyes: Pupils: Equal, round and reactive pupils present Chest: Other: left breast bandage c/d/i Resp: Effort & Inspection: normal respiratory effort and able to speak in complete sentences Cardio: Rate: regular rate Heart sounds: S1 normal heart sound present and S2 normal heart sound present GI: Other: abdomen soft, non-tender, non-distended Neuro: Cranial nerves: Yes Equal, round and reactive pupils present Extrem: Other: no leg edema Objective Data Active Medications Acetaminophen (Acetaminophen 325 Mg Tablet) 650 mg PO Q6H PRN PRN Reason: Pain, Mild (Pain Scale 1-3) Amlodipine Besylate (Amlodipine Besylate 5 Mg Tablet) 5 mg PO DAILY [facility]; Protocol Last Admin: 08/04/21 09:51 Dose: 5 mg Documented by: ADALID Aspirin (Aspirin Enteric Coated 81 Mg Tablet.) 81 mg PO DAILY [facility] Last Admin: 08/04/21 09:51 Dose: 81 mg Documented by: ADALID Atorvastatin Calcium (Atorvastatin Calcium 10 Mg Tablet) 10 mg PO DAILY [facility] Last Admin: 08/04/21 09:51 Dose: 10 mg Documented by: ADALID Dextrose (Dextrose 50 % 25 Gm/50 Ml Syringe) 25 gm IVPUSH Q15M PRN; Protocol PRN Reason: per Hypoglycemia Standing Ord. Glucose (Glucose Gel 15 Gm Gel..Gram.) 15 gm PO Q15M PRN; Protocol PRN Reason: per Hypoglycemia Standing Ord. Hydromorphone HCl (Hydromorphone Hcl 1 Mg/Ml Syringe) 0.5 mg IVPUSH Q4H PRN; Protocol PRN Reason: Pain, Severe (Pain Scale 7-10) Lactated Ringer's (Lr) 1,000 mls @ 100 mls/hr IVCONT .Q10H [facility] Last Infusion: 08/04/21 09:42 Dose: 0 mls/hr Documented by: ADALID Ondansetron HCl (Ondansetron Hcl 4 Mg/2 Ml Vial) 4 mg IVPUSH Q8H PRN PRN Reason: Nausea Oxycodone HCl (Oxycodone Hcl Immed Release 5 Mg Tablet) 5 mg PO Q6H PRN PRN Reason: Pain, Moderate (Pain Scale 4-6 Senna/Docusate Sodium (Sennosides/Docusate Sodium Tablet) 1 tab PO BEDTIME [facility] Last Admin: 08/03/21 20:26 Dose: 1 tab Documented by: ADALID Sodium Chloride (0.9 % Sodium Chloride Flush 3 Ml Syringe) 3 ml IVFLUSH QSHIFT [facility] Last Admin: 08/04/21 09:42 Dose: Not Given Documented by: ADALID Non-Admin Reason: IV Running Vitamin D (Cholecalciferol (Vitamin D3) 25 Mcg Tablet) 50 mcg PO DAILY [facility] Last Admin: 08/04/21 09:51 Dose: 50 mcg Documented by: ADALID Zolpidem Tartrate (Zolpidem Tartrate 5 Mg Tablet) 5 mg PO BEDTIME PRN PRN Reason: Insomnia Last Admin: 08/02/21 21:09 Dose: 5 mg Documented by: ESME Labs CBC & Chem 7: 08/04/21 05:52 08/04/21 05:52 Labs: Laboratory Results - last 24 hr 08/02/21 08/03/21 08/03/21 07:06 16:30 19:51 MCV MCH MCHC RDW Plt Count MPV Immature Gran % (Auto) Neut % (Auto) Lymph % (Auto) Franklin % (Auto) Eos % (Auto) Baso % (Auto) Lymph # (Auto) [place] # (Auto) Eos # (Auto) Baso # (Auto) Abs Immat Gran (auto) Absolute Neuts (auto) Absolute Nucleated RBC Nucleated RBC % (auto) Anion Gap Estim Creat Clear Calc Estimated GFR POC Glucose 150 H 179 H Random Glucose Calcium Blood Type A Positive Antibody Screen NEGATIVE Crossmatch See Detail 08/04/21 08/04/21 08/04/21 05:52 05:52 07:34 MCV 93.7 MCH 30.5 MCHC 32.5 RDW 18.5 H Plt Count 128 L MPV 11.1 Immature Gran % (Auto) 0.5 H Neut % (Auto) 64.6 Lymph % (Auto) 20.6 Franklin % (Auto) 10.7 Eos % (Auto) 3.3 Baso % (Auto) 0.3 Lymph # (Auto) 1.9 Franklin # (Auto) 1.0 Eos # (Auto) 0.3 Baso # (Auto) 0.0 Abs Immat Gran (auto) 0.05 H Absolute Neuts (auto) 5.9 Absolute Nucleated RBC 0.030 H Nucleated RBC % (auto) 0.3 H Anion Gap 11 L Estim Creat Clear Calc 18.7 Estimated GFR 21 POC Glucose 109 Random Glucose 112 Calcium 8.3 L Blood Type Antibody Screen Crossmatch 08/04/21 11:24 MCV MCH MCHC RDW Plt Count MPV Immature Gran % (Auto) Neut % (Auto) Lymph % (Auto) [place] % (Auto) Eos % (Auto) Baso % (Auto) Lymph # (Auto) [place] # (Auto) Eos # (Auto) Baso # (Auto) Abs Immat Gran (auto) Absolute Neuts (auto) Absolute Nucleated RBC Nucleated RBC % (auto) Anion Gap Estim Creat Clear Calc Estimated GFR POC Glucose 243 H Random Glucose Calcium Blood Type Antibody Screen Crossmatch Assessment and Plan (1) Acute kidney injury superimposed on CKD: Status: Acute (2) Type 2 diabetes mellitus with hyperglycemia: Status: Acute (3) Breast mass: Status: Acute Plan This is an 81 yo F with a PMH of DM, 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 Medical consult requested for management of her elevated blood glucose Normocytic Anemia H/H dropped again overnight Drop from 11.2/34.8 on 07/31 to 6.8/20.9 today likely in part from chronic renal disease and surgery, but had drop prior to surgery as well 1U RBCs ordered no evidence of acute blood loss at this time, will check stool occult anemia workup follow CBC Thrombocytopenia follow CBC DM Last A1C is 5.0; it appears she was taken off Lanuts at that time Glucose on AM labs found to be 287. 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 novak Quality Stroke Does the patient have a stroke diagnosis?: No VTE Prior VTE?: No VTE Risk Level:: Surgical - high VTE Device Contraindication: N/A - Device Ordered VTE Drug Contraindication: Treatment Not Indicated
[2021-08-04 13:44] LABS: Iron 64 mcg/dL (30-160); Percent Iron Saturation 43 % (15-50); Total Iron Binding Capacity 150 mcg/dL (228-428); Unsaturated Iron Binding 86 ug/dL
--- NOTE | 2021-08-04 15:05 | PM.PNGS ---
Subjective Subjective Date of Service: 08/04/21 Patient reports: feels better Interval history: doing well no new issues Physical Exam Vital Signs: Vital Signs: Last Vital Signs Temp 98.7 F 08/04/21 13:19 Pulse 86 08/04/21 13:19 Resp 18 08/04/21 13:19 BP 110/50 L 08/04/21 13:19 Pulse Ox 98 08/04/21 08:00 BMI result Body Mass Index 22.2 Skin: Other: breast wound area looks good, moving arm well - cole drains with little dark bloody material Objective Data Active Medications Acetaminophen (Acetaminophen 325 Mg Tablet) 650 mg PO Q6H PRN PRN Reason: Pain, Mild (Pain Scale 1-3) Amlodipine Besylate (Amlodipine Besylate 5 Mg Tablet) 5 mg PO DAILY [facility]; Protocol Last Admin: 08/04/21 09:51 Dose: 5 mg Documented by: ADALID Aspirin (Aspirin Enteric Coated 81 Mg Tablet.) 81 mg PO DAILY [facility] Last Admin: 08/04/21 09:51 Dose: 81 mg Documented by: ADALID Atorvastatin Calcium (Atorvastatin Calcium 10 Mg Tablet) 10 mg PO DAILY [facility] Last Admin: 08/04/21 09:51 Dose: 10 mg Documented by: ADALID Dextrose (Dextrose 50 % 25 Gm/50 Ml Syringe) 25 gm IVPUSH Q15M PRN; Protocol PRN Reason: per Hypoglycemia Standing Ord. Glucose (Glucose Gel 15 Gm Gel..Gram.) 15 gm PO Q15M PRN; Protocol PRN Reason: per Hypoglycemia Standing Ord. Hydromorphone HCl (Hydromorphone Hcl 1 Mg/Ml Syringe) 0.5 mg IVPUSH Q4H PRN; Protocol PRN Reason: Pain, Severe (Pain Scale 7-10) Lactated Ringer's (Lr) 1,000 mls @ 100 mls/hr IVCONT .Q10H [facility] Last Infusion: 08/04/21 13:28 Dose: 100 mls/hr Documented by: EJ Insulin Human Lispro (Insulin Lispro 100 Unit/Ml 3 Ml Vial) 0 unit SUBCUT QIDACHS [facility]; Protocol Ondansetron HCl (Ondansetron Hcl 4 Mg/2 Ml Vial) 4 mg IVPUSH Q8H PRN PRN Reason: Nausea Oxycodone HCl (Oxycodone Hcl Immed Release 5 Mg Tablet) 5 mg PO Q6H PRN PRN Reason: Pain, Moderate (Pain Scale 4-6 Senna/Docusate Sodium (Sennosides/Docusate Sodium Tablet) 1 tab PO BEDTIME [facility] Last Admin: 08/03/21 20:26 Dose: 1 tab Documented by: ADALID Sodium Chloride (0.9 % Sodium Chloride Flush 3 Ml Syringe) 3 ml IVFLUSH QSHIFT [facility] Last Admin: 08/04/21 09:42 Dose: Not Given Documented by: ADALID Non-Admin Reason: IV Running Vitamin D (Cholecalciferol (Vitamin D3) 25 Mcg Tablet) 50 mcg PO DAILY [facility] Last Admin: 08/04/21 09:51 Dose: 50 mcg Documented by: ADALID Zolpidem Tartrate (Zolpidem Tartrate 5 Mg Tablet) 5 mg PO BEDTIME PRN PRN Reason: Insomnia Last Admin: 08/02/21 21:09 Dose: 5 mg Documented by: ESME Labs CBC & Chem 7: 08/04/21 05:52 08/04/21 05:52 Labs: Laboratory Results - last 24 hr 08/02/21 08/03/21 08/03/21 07:06 16:30 19:51 MCV MCH MCHC RDW Plt Count MPV Immature Gran % (Auto) Neut % (Auto) Lymph % (Auto) Yates % (Auto) Eos % (Auto) Baso % (Auto) Lymph # (Auto) Yates # (Auto) Eos # (Auto) Baso # (Auto) Abs Immat Gran (auto) Absolute Neuts (auto) Absolute Nucleated RBC Nucleated RBC % (auto) Anion Gap Estim Creat Clear Calc Estimated GFR POC Glucose 150 H 179 H Random Glucose Calcium Iron TIBC % Saturation Unsat Iron Binding Blood Type A Positive Antibody Screen NEGATIVE Crossmatch See Detail 08/04/21 08/04/21 08/04/21 05:52 05:52 07:34 MCV 93.7 MCH 30.5 MCHC 32.5 RDW 18.5 H Plt Count 128 L MPV 11.1 Immature Gran % (Auto) 0.5 H Neut % (Auto) 64.6 Lymph % (Auto) 20.6 Yates % (Auto) 10.7 Eos % (Auto) 3.3 Baso % (Auto) 0.3 Lymph # (Auto) 1.9 Yates # (Auto) 1.0 Eos # (Auto) 0.3 Baso # (Auto) 0.0 Abs Immat Gran (auto) 0.05 H Absolute Neuts (auto) 5.9 Absolute Nucleated RBC 0.030 H Nucleated RBC % (auto) 0.3 H Anion Gap 11 L Estim Creat Clear Calc 18.7 Estimated GFR 21 POC Glucose 109 Random Glucose 112 Calcium 8.3 L Iron 64 TIBC 150 L % Saturation 43 Unsat Iron Binding 86 Blood Type Antibody Screen Crossmatch 08/04/21 11:24 MCV MCH MCHC RDW Plt Count MPV Immature Gran % (Auto) Neut % (Auto) Lymph % (Auto) Yates % (Auto) Eos % (Auto) Baso % (Auto) Lymph # (Auto) Yates # (Auto) Eos # (Auto) Baso # (Auto) Abs Immat Gran (auto) Absolute Neuts (auto) Absolute Nucleated RBC Nucleated RBC % (auto) Anion Gap Estim Creat Clear Calc Estimated GFR POC Glucose 243 H Random Glucose Calcium Iron TIBC % Saturation Unsat Iron Binding Blood Type Antibody Screen Crossmatch Procedures Date of Service Date of Service: 08/04/21 Progress Note: A&P Assessment and plan (1) Recurrent malignant neoplasm of left breast: Status: Acute Assessment and Plan: pt sp left modified radical mastectomy doing ok - plan to dc home tomorrow - she will need vna as she lives on her own Fall Risk Details Current Medications: Current Medications Acetaminophen (Acetaminophen 325 Mg Tablet) 650 mg PO Q6H PRN PRN Reason: Pain, Mild (Pain Scale 1-3) Amlodipine Besylate (Amlodipine Besylate 5 Mg Tablet) 5 mg PO DAILY [facility]; Protocol Last Admin: 08/04/21 09:51 Dose: 5 mg Documented by: Aspirin (Aspirin Enteric Coated 81 Mg Tablet.) 81 mg PO DAILY [facility] Last Admin: 08/04/21 09:51 Dose: 81 mg Documented by: Atorvastatin Calcium (Atorvastatin Calcium 10 Mg Tablet) 10 mg PO DAILY [facility] Last Admin: 08/04/21 09:51 Dose: 10 mg Documented by: Dextrose (Dextrose 50 % 25 Gm/50 Ml Syringe) 25 gm IVPUSH Q15M PRN; Protocol PRN Reason: per Hypoglycemia Standing Ord. Glucose (Glucose Gel 15 Gm Gel..Gram.) 15 gm PO Q15M PRN; Protocol PRN Reason: per Hypoglycemia Standing Ord. Hydromorphone HCl (Hydromorphone Hcl 1 Mg/Ml Syringe) 0.5 mg IVPUSH Q4H PRN; Protocol PRN Reason: Pain, Severe (Pain Scale 7-10) Lactated Ringer's (Lr) 1,000 mls @ 100 mls/hr IVCONT .Q10H [facility] Last Infusion: 08/04/21 13:28 Dose: 100 mls/hr Documented by: Insulin Human Lispro (Insulin Lispro 100 Unit/Ml 3 Ml Vial) 0 unit SUBCUT QIDACHS [facility]; Protocol Ondansetron HCl (Ondansetron Hcl 4 Mg/2 Ml Vial) 4 mg IVPUSH Q8H PRN PRN Reason: Nausea Oxycodone HCl (Oxycodone Hcl Immed Release 5 Mg Tablet) 5 mg PO Q6H PRN PRN Reason: Pain, Moderate (Pain Scale 4-6 Senna/Docusate Sodium (Sennosides/Docusate Sodium Tablet) 1 tab PO BEDTIME [facility] Last Admin: 08/03/21 20:26 Dose: 1 tab Documented by: Sodium Chloride (0.9 % Sodium Chloride Flush 3 Ml Syringe) 3 ml IVFLUSH QSHIFT [facility] Last Admin: 08/04/21 09:42 Dose: Not Given Documented by: Vitamin D (Cholecalciferol (Vitamin D3) 25 Mcg Tablet) 50 mcg PO DAILY [facility] Last Admin: 08/04/21 09:51 Dose: 50 mcg Documented by: Zolpidem Tartrate (Zolpidem Tartrate 5 Mg Tablet) 5 mg PO BEDTIME PRN PRN Reason: Insomnia Last Admin: 08/02/21 21:09 Dose: 5 mg Documented by: Time Spent With Patient Time: Total time spent is greater than 50% in coordination of care (as documented) at patient's floor/unit and/or counseling patient: Time with patient: 15 - 24 minutes Quality Stroke Does the patient have a stroke diagnosis?: No VTE Prior VTE?: No VTE Risk Level:: Surgical - high VTE Device Contraindication: N/A - Device Ordered VTE Drug Contraindication: Treatment Not Indicated
[2021-08-04 16:19] LABS: Glucose, Whole Blood 200 mg/dL (60-115)
[2021-08-04] MEDS: Insulin Lispro 100 UNIT/ML 3 ML VIAL SUBCUT ×2 (16:35→20:48)
[2021-08-04 20:24] LABS: Glucose, Whole Blood 218 mg/dL (60-115)
[2021-08-04] MEDS: Sennosides/Docusate Sodium TABLET 1 TAB PO (20:49)
[2021-08-04] MEDS: 0.9 % Sodium Chloride Flush 3 ML SYRINGE IVFLUSH (20:50)
[2021-08-05 03:27] VITALS: BP 138/67; PULSE 87; RESP 18; TEMP 36.1; O2SAT 99
[2021-08-05 06:27] LABS: Hematocrit 22.6 % (37.0-47.0); Hemoglobin 7.3 g/dl (12.0-16.0); Mean Corpuscular HGB Conc 32.3 g/dl (31.0-35.0); Mean Corpuscular Hemoglobin 29.6 pg (27.0-33.0); Mean Corpuscular Volume 91.5 fL (80.0-98.0); Mean Platelet Volume 10.5 fL (9.4-12.3); NRBC Pct Auto 0.2 /100WBC (0.0-0.2); Platelet Count 131 X10*3/uL (160-400); Red Blood Count 2.47 X10*6/uL (4.20-5.50); Red Cell Distribution Width 18.9 % (11.0-16.0); White Blood Count 8.6 X10*3/uL (4.8-10.8)
[2021-08-05 06:49] LABS: Anion Gap 11 (12-20); Blood Urea Nitrogen 47 mg/dL (9-16); Calcium 8.2 mg/dL (8.4-10.2); Carbon Dioxide 25 mmol/L (22-29); Chloride 105 mmol/L (96-108); Creatinine Clr Calc Pharmacy 28.8; Estimated Glomerular Filt Rate 35; Glucose Random 111 mg/dL (60-115); Potassium 4.9 mmol/L (3.3-5.1); Sodium 136 mmol/L (135-145)
[2021-08-05 07:40] LABS: Immature Retic Fraction 11.2 % (3.0-15.9); Reticulocytes Absolute 0.023 X10*6/uL (0.026-0.095)
[2021-08-05 07:41] LABS: Retic HGB Equivalent 33.6 pg (30.0-35.0)
[2021-08-05 07:53] LABS: Alanine Aminotransferase < 6 U/L (0-31); Albumin Level 2.7 g/dL (3.5-5.0); Alkaline Phosphatase 71 U/L (39-117); Aspartate Amino Transferase 15 U/L (5-31); Bilirubin Direct 0.4 mg/dL (0.0-0.5); Bilirubin Total 0.9 mg/dL (0.0-1.0); Lactate Dehydrogenase 182 U/L (122-220); Total Protein 4.7 g/dL (6.5-8.0)
[2021-08-05 07:54] LABS: Glucose, Whole Blood 96 mg/dL (60-115)
[2021-08-05 08:00] VITALS: BP 117/66; PULSE 86; RESP 20; TEMP 36.9; O2SAT 98
[2021-08-05] MEDS: Cholecalciferol (Vitamin D3) 25 MCG TABLET 50 MCG PO (08:52)
[2021-08-05] MEDS: Atorvastatin Calcium 10 MG TABLET PO (08:53)
[2021-08-05] MEDS: Aspirin Enteric Coated 81 MG TABLET.DR PO (08:53)
[2021-08-05] MEDS: amLODIPine Besylate 5 MG TABLET PO (08:53)
--- NOTE | 2021-08-05 10:29 | HO.PM.IMPN ---
Subjective Subjective Date of Service: 08/05/21 Interval History: seen and examined this morning feeling well, no overnight events tolerated blood transfusion well no shortness of breath, chest pain, dizziness pain well controlled tolerating diet Review of Systems Review of Systems: Yes all other systems are reviewed and are negative Constitutional Constitutional: Denies chills and Denies fever(s) Cardiovascular Cardiovascular: Denies chest pain and Denies dyspnea Respiratory Respiratory: Denies dyspnea Gastrointestinal Gastrointestinal: Denies abdominal pain Physical Exam Vital Signs: Vital Signs: Last Vital Signs Temp 98.4 F 08/05/21 08:00 Pulse 86 08/05/21 08:00 Resp 20 08/05/21 08:00 BP 117/66 08/05/21 08:00 Pulse Ox 98 08/05/21 08:00 BMI result Body Mass Index 22.2 Const: General: cooperative, healthy appearing, comfortable, no acute distress, alert and awake Nutritional Appearance: thin Orientation/consciousness: patient oriented x3 Eyes: Pupils: Equal, round and reactive pupils present Chest: Other: left breast bandage with staining through stephanie; JP1 will minimal output; JP2 with serosanguineous drainage Resp: Effort & Inspection: normal respiratory effort and able to speak in complete sentences Cardio: Rate: regular rate Heart sounds: S1 normal heart sound present and S2 normal heart sound present GI: Other: abdomen soft, non-tender, non-distended Neuro: General: patient oriented x3 Cranial nerves: Yes Equal, round and reactive pupils present Extrem: Other: no leg edema Objective Data Active Medications Acetaminophen (Acetaminophen 325 Mg Tablet) 650 mg PO Q6H PRN PRN Reason: Pain, Mild (Pain Scale 1-3) Amlodipine Besylate (Amlodipine Besylate 5 Mg Tablet) 5 mg PO DAILY [facility]; Protocol Last Admin: 08/05/21 08:53 Dose: 5 mg Documented by: AMY Aspirin (Aspirin Enteric Coated 81 Mg Tablet.) 81 mg PO DAILY [facility] Last Admin: 08/05/21 08:53 Dose: 81 mg Documented by: AMY Atorvastatin Calcium (Atorvastatin Calcium 10 Mg Tablet) 10 mg PO DAILY [facility] Last Admin: 08/05/21 08:53 Dose: 10 mg Documented by: AMY Dextrose (Dextrose 50 % 25 Gm/50 Ml Syringe) 25 gm IVPUSH Q15M PRN; Protocol PRN Reason: per Hypoglycemia Standing Ord. Glucose (Glucose Gel 15 Gm Gel..Gram.) 15 gm PO Q15M PRN; Protocol PRN Reason: per Hypoglycemia Standing Ord. Hydromorphone HCl (Hydromorphone Hcl 1 Mg/Ml Syringe) 0.5 mg IVPUSH Q4H PRN; Protocol PRN Reason: Pain, Severe (Pain Scale 7-10) Lactated Ringer's (Lr) 1,000 mls @ 100 mls/hr IVCONT .Q10H [facility] Last Admin: 08/05/21 03:24 Dose: Not Given Documented by: NAVEED Non-Admin Reason: IV Running Insulin Human Lispro (Insulin Lispro 100 Unit/Ml 3 Ml Vial) 0 unit SUBCUT QIDACHS [facility]; Protocol Last Admin: 08/05/21 08:48 Dose: Not Given Documented by: AMY Non-Admin Reason: No Insulin Coverage Ondansetron HCl (Ondansetron Hcl 4 Mg/2 Ml Vial) 4 mg IVPUSH Q8H PRN PRN Reason: Nausea Oxycodone HCl (Oxycodone Hcl Immed Release 5 Mg Tablet) 5 mg PO Q6H PRN PRN Reason: Pain, Moderate (Pain Scale 4-6 Senna/Docusate Sodium (Sennosides/Docusate Sodium Tablet) 1 tab PO BEDTIME [facility] Last Admin: 08/04/21 20:49 Dose: 1 tab Documented by: NAVEED Sodium Chloride (0.9 % Sodium Chloride Flush 3 Ml Syringe) 3 ml IVFLUSH QSHIFT [facility] Last Admin: 08/05/21 08:53 Dose: Not Given Documented by: AMY Non-Admin Reason: IV Running Vitamin D (Cholecalciferol (Vitamin D3) 25 Mcg Tablet) 50 mcg PO DAILY [facility] Last Admin: 08/05/21 08:52 Dose: 50 mcg Documented by: AMY Zolpidem Tartrate (Zolpidem Tartrate 5 Mg Tablet) 5 mg PO BEDTIME PRN PRN Reason: Insomnia Last Admin: 08/02/21 21:09 Dose: 5 mg Documented by: ESME Labs CBC & Chem 7: 08/05/21 05:36 08/05/21 05:36 Labs: Laboratory Results - last 24 hr 08/02/21 08/04/21 08/04/21 07:06 05:52 11:24 MCV MCH MCHC RDW Plt Count MPV Absolute Nucleated RBC Nucleated RBC % (auto) Absolute Retic Percent Retic Immature Retic Fraction Retic Hgb Equivalent Anion Gap Estim Creat Clear Calc Estimated GFR POC Glucose 243 H Random Glucose Calcium Iron 64 TIBC 150 L % Saturation 43 Unsat Iron Binding 86 Total Bilirubin Direct Bilirubin AST ALT Alkaline Phosphatase Lactate Dehydrogenase Total Protein Albumin Crossmatch See Detail 08/04/21 08/04/21 08/05/21 16:10 20:09 05:36 MCV 91.5 MCH 29.6 MCHC 32.3 RDW 18.9 H Plt Count 131 L MPV 10.5 Absolute Nucleated RBC 0.020 H Nucleated RBC % (auto) 0.2 Absolute Retic 0.023 L Percent Retic 1.0 Immature Retic Fraction 11.2 Retic Hgb Equivalent 33.6 Anion Gap Estim Creat Clear Calc Estimated GFR POC Glucose 200 H 218 H Random Glucose Calcium Iron TIBC % Saturation Unsat Iron Binding Total Bilirubin Direct Bilirubin AST ALT Alkaline Phosphatase Lactate Dehydrogenase Total Protein Albumin Crossmatch 08/05/21 08/05/21 05:36 07:32 MCV MCH MCHC RDW Plt Count MPV Absolute Nucleated RBC Nucleated RBC % (auto) Absolute Retic Percent Retic Immature Retic Fraction Retic Hgb Equivalent Anion Gap 11 L Estim Creat Clear Calc 28.8 Estimated GFR 35 POC Glucose 96 Random Glucose 111 Calcium 8.2 L Iron TIBC % Saturation Unsat Iron Binding Total Bilirubin 0.9 Direct Bilirubin 0.4 AST 15 ALT < 6 Alkaline Phosphatase 71 Lactate Dehydrogenase 182 Total Protein 4.7 L Albumin 2.7 L Crossmatch Assessment and Plan (1) Type 2 diabetes mellitus with hyperglycemia: Status: Acute (2) Invasive ductal carcinoma of left breast: Status: Acute (3) Anemia: Status: Acute Plan This is an 81 yo F with a PMH of DM, 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 Medical consult requested for management of her elevated blood glucose s/p Left Mastectomy for invasive ductal carcinoma management per surgical service Normocytic Anemia Drop from 11.2/34.8 on 07/31 to 6.8/20.9 on 08/04 s/p 1U rbc 08/04 with some improvement in h/h No iron deficiency, no evidence of hemolysis Stool occult pending, but no rectal bleeding by history Probably r/t acute blood loss from surgery; still having output in MATTEO drains follow CBC, consider another blood transfusion if H/H drops further Thrombocytopenia platelets stable follow CBC DM Last A1C is 5.0; it appears she was taken off Lanuts at that time Glucose on AM labs found to be 287. 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 novak Quality Stroke Does the patient have a stroke diagnosis?: No VTE Prior VTE?: No VTE Risk Level:: Surgical - high VTE Device Contraindication: N/A - Device Ordered VTE Drug Contraindication: Treatment Not Indicated
[2021-08-05 11:31] LABS: Glucose, Whole Blood 190 mg/dL (60-115)
[2021-08-05 11:50] VITALS: BP 138/69; PULSE 84; RESP 18; TEMP 36.2; O2SAT 99
[2021-08-05] MEDS: Insulin Lispro 100 UNIT/ML 3 ML VIAL SUBCUT ×2 (11:50→22:30)
--- NOTE | 2021-08-05 13:54 | P.PNGS_ITS ---
Subjective Subjective Date of Service: 08/05/21 Interval history: feels well no issues Physical Exam Vital Signs: Vital Signs: Last Vital Signs Temp 97.2 F 08/05/21 11:50 Pulse 84 08/05/21 11:50 Resp 18 08/05/21 11:50 BP 138/69 08/05/21 11:50 Pulse Ox 99 08/05/21 11:50 BMI result Body Mass Index 22.2 Skin: Other: left breast bandages taken down the incision an flaps look great the cole drain A not draining much - the cole B - having 80 cc more serosanguinous drainage but sanguinous a bit Objective Data Active Medications Acetaminophen (Acetaminophen 325 Mg Tablet) 650 mg PO Q6H PRN PRN Reason: Pain, Mild (Pain Scale 1-3) Amlodipine Besylate (Amlodipine Besylate 5 Mg Tablet) 5 mg PO DAILY [facility]; Protocol Last Admin: 08/05/21 08:53 Dose: 5 mg Documented by: AMY Aspirin (Aspirin Enteric Coated 81 Mg Tablet.) 81 mg PO DAILY [facility] Last Admin: 08/05/21 08:53 Dose: 81 mg Documented by: AMY Atorvastatin Calcium (Atorvastatin Calcium 10 Mg Tablet) 10 mg PO DAILY [facility] Last Admin: 08/05/21 08:53 Dose: 10 mg Documented by: AMY Dextrose (Dextrose 50 % 25 Gm/50 Ml Syringe) 25 gm IVPUSH Q15M PRN; Protocol PRN Reason: per Hypoglycemia Standing Ord. Glucose (Glucose Gel 15 Gm Gel..Gram.) 15 gm PO Q15M PRN; Protocol PRN Reason: per Hypoglycemia Standing Ord. Hydromorphone HCl (Hydromorphone Hcl 1 Mg/Ml Syringe) 0.5 mg IVPUSH Q4H PRN; Protocol PRN Reason: Pain, Severe (Pain Scale 7-10) Insulin Human Lispro (Insulin Lispro 100 Unit/Ml 3 Ml Vial) 0 unit SUBCUT QIDACHS [facility]; Protocol Last Admin: 08/05/21 11:50 Dose: 2 unit Documented by: AMY Ondansetron HCl (Ondansetron Hcl 4 Mg/2 Ml Vial) 4 mg IVPUSH Q8H PRN PRN Reason: Nausea Oxycodone HCl (Oxycodone Hcl Immed Release 5 Mg Tablet) 5 mg PO Q6H PRN PRN Reason: Pain, Moderate (Pain Scale 4-6 Senna/Docusate Sodium (Sennosides/Docusate Sodium Tablet) 1 tab PO BEDTIME [facility] Last Admin: 08/04/21 20:49 Dose: 1 tab Documented by: CASTCLAUDIO Sodium Chloride (0.9 % Sodium Chloride Flush 3 Ml Syringe) 3 ml IVFLUSH QSHIFT [facility] Last Admin: 08/05/21 08:53 Dose: Not Given Documented by: AMY Non-Admin Reason: IV Running Vitamin D (Cholecalciferol (Vitamin D3) 25 Mcg Tablet) 50 mcg PO DAILY [facility] Last Admin: 08/05/21 08:52 Dose: 50 mcg Documented by: AMY Zolpidem Tartrate (Zolpidem Tartrate 5 Mg Tablet) 5 mg PO BEDTIME PRN PRN Reason: Insomnia Last Admin: 08/02/21 21:09 Dose: 5 mg Documented by: ESME Labs CBC & Chem 7: 08/05/21 05:36 08/05/21 05:36 Labs: Laboratory Results - last 24 hr 08/04/21 08/04/21 08/05/21 16:10 20:09 05:36 MCV 91.5 MCH 29.6 MCHC 32.3 RDW 18.9 H Plt Count 131 L MPV 10.5 Absolute Nucleated RBC 0.020 H Nucleated RBC % (auto) 0.2 Absolute Retic 0.023 L Percent Retic 1.0 Immature Retic Fraction 11.2 Retic Hgb Equivalent 33.6 Anion Gap Estim Creat Clear Calc Estimated GFR POC Glucose 200 H 218 H Random Glucose Calcium Total Bilirubin Direct Bilirubin AST ALT Alkaline Phosphatase Lactate Dehydrogenase Total Protein Albumin 08/05/21 08/05/21 08/05/21 05:36 07:32 11:18 MCV MCH MCHC RDW Plt Count MPV Absolute Nucleated RBC Nucleated RBC % (auto) Absolute Retic Percent Retic Immature Retic Fraction Retic Hgb Equivalent Anion Gap 11 L Estim Creat Clear Calc 28.8 Estimated GFR 35 POC Glucose 96 190 H Random Glucose 111 Calcium 8.2 L Total Bilirubin 0.9 Direct Bilirubin 0.4 AST 15 ALT < 6 Alkaline Phosphatase 71 Lactate Dehydrogenase 182 Total Protein 4.7 L Albumin 2.7 L Procedures Date of Service Date of Service: 08/05/21 Progress Note: A&P Assessment and plan (1) Invasive ductal carcinoma of left breast: Status: Acute Assessment and Plan: pod#3 sp left MRM doing ok - i think she may have lost blood in the specimen and a little postop bleeding but otherwise doing well - wounds look good, medically doing better. received one unit prbc yesterday and hct up now. plan to repeat tomorrow and consider another unit transfusion as needed according to med team advice hope to dc home tomorrow with vna and cole drains in place. Fall Risk Details Current Medications: Current Medications Acetaminophen (Acetaminophen 325 Mg Tablet) 650 mg PO Q6H PRN PRN Reason: Pain, Mild (Pain Scale 1-3) Amlodipine Besylate (Amlodipine Besylate 5 Mg Tablet) 5 mg PO DAILY [facility]; Protocol Last Admin: 08/05/21 08:53 Dose: 5 mg Documented by: Aspirin (Aspirin Enteric Coated 81 Mg Tablet.) 81 mg PO DAILY [facility] Last Admin: 08/05/21 08:53 Dose: 81 mg Documented by: Atorvastatin Calcium (Atorvastatin Calcium 10 Mg Tablet) 10 mg PO DAILY [facility] Last Admin: 08/05/21 08:53 Dose: 10 mg Documented by: Dextrose (Dextrose 50 % 25 Gm/50 Ml Syringe) 25 gm IVPUSH Q15M PRN; Protocol PRN Reason: per Hypoglycemia Standing Ord. Glucose (Glucose Gel 15 Gm Gel..Gram.) 15 gm PO Q15M PRN; Protocol PRN Reason: per Hypoglycemia Standing Ord. Hydromorphone HCl (Hydromorphone Hcl 1 Mg/Ml Syringe) 0.5 mg IVPUSH Q4H PRN; Protocol PRN Reason: Pain, Severe (Pain Scale 7-10) Insulin Human Lispro (Insulin Lispro 100 Unit/Ml 3 Ml Vial) 0 unit SUBCUT QIDACHS [facility]; Protocol Last Admin: 08/05/21 11:50 Dose: 2 unit Documented by: Ondansetron HCl (Ondansetron Hcl 4 Mg/2 Ml Vial) 4 mg IVPUSH Q8H PRN PRN Reason: Nausea Oxycodone HCl (Oxycodone Hcl Immed Release 5 Mg Tablet) 5 mg PO Q6H PRN PRN Reason: Pain, Moderate (Pain Scale 4-6 Senna/Docusate Sodium (Sennosides/Docusate Sodium Tablet) 1 tab PO BEDTIME [facility] Last Admin: 08/04/21 20:49 Dose: 1 tab Documented by: Sodium Chloride (0.9 % Sodium Chloride Flush 3 Ml Syringe) 3 ml IVFLUSH QSHIFT [facility] Last Admin: 08/05/21 08:53 Dose: Not Given Documented by: Vitamin D (Cholecalciferol (Vitamin D3) 25 Mcg Tablet) 50 mcg PO DAILY [facility] Last Admin: 08/05/21 08:52 Dose: 50 mcg Documented by: Zolpidem Tartrate (Zolpidem Tartrate 5 Mg Tablet) 5 mg PO BEDTIME PRN PRN Reason: Insomnia Last Admin: 08/02/21 21:09 Dose: 5 mg Documented by: Time Spent With Patient Time: Total time spent is greater than 50% in coordination of care (as documented) at patient's floor/unit and/or counseling patient: Time with patient: less than 15 minutes Quality Stroke Does the patient have a stroke diagnosis?: No VTE Prior VTE?: No VTE Risk Level:: Surgical - high VTE Device Contraindication: N/A - Device Ordered VTE Drug Contraindication: Treatment Not Indicated
[2021-08-05 15:14] VITALS: BP 125/77; PULSE 87; RESP 18; TEMP 36.4; O2SAT 99
[2021-08-05 15:42] LABS: Glucose, Whole Blood 118 mg/dL (60-115)
[2021-08-05] MEDS: 0.9 % Sodium Chloride Flush 3 ML SYRINGE IVFLUSH ×2 (16:33→23:41)
[2021-08-05 19:15] VITALS: BP 142/66; PULSE 89; RESP 18; TEMP 36.4; O2SAT 100
[2021-08-05 20:09] LABS: Glucose, Whole Blood 178 mg/dL (60-115)
[2021-08-05] MEDS: Sennosides/Docusate Sodium TABLET 1 TAB PO (22:30)
[2021-08-06] VITALS (10 sets, daily range): BP systolic 124–158; BP diastolic 60–78; PULSE 79–104; RESP 14–20; TEMP 36.3–37.1; O2SAT 98–100
[2021-08-06 04:44] LABS: Folate 3.4 ng/mL (> or = 4.0); Vitamin B12 552 pg/mL (200-900)
[2021-08-06 07:41] LABS: Glucose, Whole Blood 126 mg/dL (60-115)
--- NOTE | 2021-08-06 09:10 | P.PNGS_ITS ---
Subjective Subjective Date of Service: 08/06/21 <Liliana Sidhu PA-C - Last Filed: 08/06/21 09:15> 08/06/21 <Greg Junior MD - Last Filed: 08/06/21 10:24> Interval history: Transfused yesterday for Hgb <7. Remained asymptomatic. Denies pain but has mild soreness at incision site. Tolerating solid diet. Lives at home, son helps out. <Liliana Sidhu PA-C - Last Filed: 08/06/21 09:15> Physical Exam Vital Signs: Vital Signs: Last Vital Signs Temp 98.7 F 08/06/21 07:13 Pulse 81 08/06/21 07:13 Resp 15 08/06/21 07:13 BP 143/68 H 08/06/21 07:13 Pulse Ox 98 08/06/21 07:13 BMI result Body Mass Index 22.2 <Liliana Sidhu PA-C - Last Filed: 08/06/21 09:15> Const: General: comfortable, no acute distress and alert <Liliana Sidhu PA-C - Last Filed: 08/06/21 09:15> Orientation/consciousness: patient oriented x3 <Liliana Sidhu PA-C - Last Filed: 08/06/21 09:15> Chest: Other: left mastectomy incision site clean, no seroma/hematoma, MATTEO drains in place with sanguineous/serosanguineous (#2/axilla) output <Liliana Sidhu PA-C - Last Filed: 08/06/21 09:15> Resp: Effort & Inspection: normal respiratory effort <Liliana Sidhu PA-C - Last Filed: 08/06/21 09:15> Skin: Other: warm and dry <JENNIFER Calderon Last Filed: 08/06/21 09:15> Neuro: General: patient oriented x3 <JENNIFER Calderon Last Filed: 08/06/21 09:15> Objective Data Active Medications Acetaminophen (Acetaminophen 325 Mg Tablet) 650 mg PO Q6H PRN PRN Reason: Pain, Mild (Pain Scale 1-3) Amlodipine Besylate (Amlodipine Besylate 5 Mg Tablet) 5 mg PO DAILY [facility]; Protocol Last Admin: 08/05/21 08:53 Dose: 5 mg Documented by: AMY Aspirin (Aspirin Enteric Coated 81 Mg Tablet.) 81 mg PO DAILY [facility] Last Admin: 08/05/21 08:53 Dose: 81 mg Documented by: AMY Atorvastatin Calcium (Atorvastatin Calcium 10 Mg Tablet) 10 mg PO DAILY [facility] Last Admin: 08/05/21 08:53 Dose: 10 mg Documented by: AMY Dextrose (Dextrose 50 % 25 Gm/50 Ml Syringe) 25 gm IVPUSH Q15M PRN; Protocol PRN Reason: per Hypoglycemia Standing Ord. Glucose (Glucose Gel 15 Gm Gel..Gram.) 15 gm PO Q15M PRN; Protocol PRN Reason: per Hypoglycemia Standing Ord. Hydromorphone HCl (Hydromorphone Hcl 1 Mg/Ml Syringe) 0.5 mg IVPUSH Q4H PRN; Protocol PRN Reason: Pain, Severe (Pain Scale 7-10) Insulin Human Lispro (Insulin Lispro 100 Unit/Ml 3 Ml Vial) 0 unit SUBCUT QIDACHS [facility]; Protocol Last Admin: 08/06/21 07:45 Dose: Not Given Documented by: JOANNA Non-Admin Reason: No Insulin Coverage Ondansetron HCl (Ondansetron Hcl 4 Mg/2 Ml Vial) 4 mg IVPUSH Q8H PRN PRN Reason: Nausea Oxycodone HCl (Oxycodone Hcl Immed Release 5 Mg Tablet) 5 mg PO Q6H PRN PRN Reason: Pain, Moderate (Pain Scale 4-6 Senna/Docusate Sodium (Sennosides/Docusate Sodium Tablet) 1 tab PO BEDTIME [facility] Last Admin: 08/05/21 22:30 Dose: 1 tab Documented by: CAITLIN Sodium Chloride (0.9 % Sodium Chloride Flush 3 Ml Syringe) 3 [facility] Last Admin: 08/05/21 23:41 Dose: 3 ml Documented by: KIMBERLY Vitamin D (Cholecalciferol (Vitamin D3) 25 Mcg Tablet) 50 mcg PO DAILY [facility] Last Admin: 08/05/21 08:52 Dose: 50 mcg Documented by: AMY Zolpidem Tartrate (Zolpidem Tartrate 5 Mg Tablet) 5 mg PO BEDTIME PRN PRN Reason: Insomnia Last Admin: 08/02/21 21:09 Dose: 5 mg Documented by: ESME <Liliana Sidhu PA-C - Last Filed: 08/06/21 09:15> Labs CBC & Chem 7: : 08/05/21 05:36 08/05/21 05:36 <Liliana Sidhu PA-C - Last Filed: 08/06/21 09:15> Labs: Laboratory Results - last 24 hr 08/04/21 08/05/21 08/05/21 05:52 11:18 15:32 POC Glucose 190 H 118 H Vitamin B12 552 Folate 3.4 L 08/05/21 08/06/21 19:55 07:15 POC Glucose 178 H 126 H Vitamin B12 Folate <Liliana Sidhu PA-C - Last Filed: 08/06/21 09:15> Procedures Date of Service Date of Service: 08/06/21 <Liliana Sidhu PA-C - Last Filed: 08/06/21 09:15> Progress Note: A&P Assessment and plan (1) Acute kidney injury superimposed on CKD: Status: Acute <Liliana Sidhu PA-C - Last Filed: 08/06/21 09:15> (2) Type 2 diabetes mellitus with hyperglycemia: Status: Acute <Liliana Sidhu PA-C - Last Filed: 08/06/21 09:15> (3) Invasive ductal carcinoma of left breast: Status: Acute <Liliana Sidhu PA-C - Last Filed: 08/06/21 09:15> (4) Anemia: Status: Acute <Liliana Sidhu PA-C - Last Filed: 08/06/21 09:15> Plan 81 year old female with invasive ductal carcinoma left breast now POD #4 s/p modified radical mastectomy. Doing fairly well post op. Transfused yesterday with appropriate rise in H/H but remains <8. VSS. Incision clean without evidence of hematoma/seroma, MATTEO drains with sanguineous drainage- low to moderate output. Will transfuse 1 more unit today. Begin dispo planning- home with VNA services. Patient comfortable with plan. Hospitalists following. <Liliana Sidhu PA-C - Last Filed: 08/06/21 09:15> 81 year old female with invasive ductal carcinoma left breast now POD #4 s/p modified radical mastectomy. Doing fairly well post op. Transfused yesterday with appropriate rise in H/H but remains <8. VSS. Incision clean without evidence of hematoma/seroma, MATTEO drains with sanguineous drainage- low to moderate output. Will transfuse 1 more unit today. Begin dispo planning- home with VNA services. Patient comfortable with plan. Hospitalists following. Agree with the above assessment and plan. No significant bleed during surgery and mild MATTEO output. No hematoma under flaps and incisions are clean and intact. Agree with additional transfusion. Discharge planning. Patient will need VNA to assist with drain care. <Greg Junior MD - Last Filed: 08/06/21 10:24> Fall Risk Details Current Medications: Current Medications Acetaminophen (Acetaminophen 325 Mg Tablet) 650 mg PO Q6H PRN PRN Reason: Pain, Mild (Pain Scale 1-3) Amlodipine Besylate (Amlodipine Besylate 5 Mg Tablet) 5 mg PO DAILY [facility]; Protocol Last Admin: 08/05/21 08:53 Dose: 5 mg Documented by: Aspirin (Aspirin Enteric Coated 81 Mg Tablet.) 81 mg PO DAILY [facility] Last Admin: 08/05/21 08:53 Dose: 81 mg Documented by: Atorvastatin Calcium (Atorvastatin Calcium 10 Mg Tablet) 10 mg PO DAILY [facility] Last Admin: 08/05/21 08:53 Dose: 10 mg Documented by: Dextrose (Dextrose 50 % 25 Gm/50 Ml Syringe) 25 gm IVPUSH Q15M PRN; Protocol PRN Reason: per Hypoglycemia Standing Ord. Glucose (Glucose Gel 15 Gm Gel..Gram.) 15 gm PO Q15M PRN; Protocol PRN Reason: per Hypoglycemia Standing Ord. Hydromorphone HCl (Hydromorphone Hcl 1 Mg/Ml Syringe) 0.5 mg IVPUSH Q4H PRN; Protocol PRN Reason: Pain, Severe (Pain Scale 7-10) Insulin Human Lispro (Insulin Lispro 100 Unit/Ml 3 Ml Vial) 0 unit SUBCUT QIDACHS [facility]; Protocol Last Admin: 08/06/21 07:45 Dose: Not Given Documented by: Ondansetron HCl (Ondansetron Hcl 4 Mg/2 Ml Vial) 4 mg IVPUSH Q8H PRN PRN Reason: Nausea Oxycodone HCl (Oxycodone Hcl Immed Release 5 Mg Tablet) 5 mg PO Q6H PRN PRN Reason: Pain, Moderate (Pain Scale 4-6 Senna/Docusate Sodium (Sennosides/Docusate Sodium Tablet) 1 tab PO BEDTIME [facility] Last Admin: 08/05/21 22:30 Dose: 1 tab Documented by: Sodium Chloride (0.9 % Sodium Chloride Flush 3 Ml Syringe) 3 ml IVFLUSH QSHIFT [facility] Last Admin: 08/05/21 23:41 Dose: 3 ml Documented by: Vitamin D (Cholecalciferol (Vitamin D3) 25 Mcg Tablet) 50 mcg PO DAILY [facility] Last Admin: 08/05/21 08:52 Dose: 50 mcg Documented by: Zolpidem Tartrate (Zolpidem Tartrate 5 Mg Tablet) 5 mg PO BEDTIME PRN PRN Reason: Insomnia Last Admin: 08/02/21 21:09 Dose: 5 mg Documented by: <Liliana Sidhu PA-C - Last Filed: 08/06/21 09:15> Time Spent With Patient Time: Total time spent is greater than 50% in coordination of care (as documented) at patient's floor/unit and/or counseling patient: <Liliana Sidhu PA-C - Last Filed: 08/06/21 09:15> Time with patient: 15 - 24 minutes <Liliana Sidhu PA-C - Last Filed: 08/06/21 09:15> Quality Stroke Does the patient have a stroke diagnosis?: No <Liliana Sidhu PA-C - Last Filed: 08/06/21 09:15> VTE Prior VTE?: No <Liliana Sidhu PA-C - Last Filed: 08/06/21 09:15> VTE Risk Level:: Surgical - high <Liliana Sidhu PA-C - Last Filed: 08/06/21 09:15> VTE Device Contraindication: N/A - Device Ordered <JENNIFER Calderon Last Filed: 08/06/21 09:15> VTE Drug Contraindication: Treatment Not Indicated <Liliana Sidhu PA-C - Last Filed: 08/06/21 09:15>
--- NOTE | 2021-08-06 09:45 | MHC.CM.PN ---
Addendum entered by Nataliya Mondragon 08/06/21 14:34: NEW INFO: SON IS UNABLE TO PROVIDE THE AMOUNT OF ASSISTANCE PATIENT WILL NEED UPON DC. [facility] IS CURRENTLY ONLY REFERRAL PLACED THAT CAN OFFER DAILY. PLAN IS STILL TOMORROW DISCHARGE HOME. SON IS ASKING THAT PATIENT BE TRANSPORTED VIA AMBULANCE AND HE WILL HAVE THE DOOR UNLOCKED FOR PATIENT AT 1600. Original Note: CALL TO PATIENT'S SON, [facility]QUE ([phone]) UNIQUE AGREES THAT PATIENT WILL BENEFIT FROM VNA SERVICES AND IS OPEN TO ANY SUGGESTIONS FOR AGENCY. HE AGREES WITH AN INITIAL REFERRAL TO [facility], [facility]. PLAN WILL BE DC TOMORROW. PATIENT WILL NEED DAILY DRAIN CARE (SON CAN ASSIST WITH) AND VNA SERVICES 3X/WEEK. UNIQUE IS ALSO HOPING FOR [facility] [employer] NA TO BE MADE AWARE OF REQUEST.
[2021-08-06] MEDS: Atorvastatin Calcium 10 MG TABLET PO (10:41)
[2021-08-06] MEDS: Cholecalciferol (Vitamin D3) 25 MCG TABLET 50 MCG PO (10:41)
[2021-08-06] MEDS: Aspirin Enteric Coated 81 MG TABLET.DR PO (10:41)
[2021-08-06] MEDS: amLODIPine Besylate 5 MG TABLET PO (10:41)
[2021-08-06] MEDS: 0.9 % Sodium Chloride Flush 3 ML SYRINGE IVFLUSH ×2 (10:42→22:26)
--- NOTE | 2021-08-06 10:54 | MHC.CLN ---
F/U DIET=DIABETIC 2000 KCAL. APPEARS TO BE EATING WELL. NO NEW NUTRITION INTERVENTIONS.
[2021-08-06 11:07] LABS: Glucose, Whole Blood 173 mg/dL (60-115)
[2021-08-06] MEDS: Insulin Lispro 100 UNIT/ML 3 ML VIAL SUBCUT ×2 (11:36→22:26)
--- NOTE | 2021-08-06 12:17 | P.CDIC_ITS ---
CDI Concurrent Query Documentation Clarification: PHYSICIAN'S DOCUMENTATION REQUEST Date of Query: 08/06/21 1218 Patient Name: Shukri Adhikari Admit Date: 08/02/21 Dear Doctor, A review of the medical record indicates additional documentation may be needed. Please review below and update the documentation accordingly. 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 GFR 17 Please clarify which of the following accurately represents the patient's renal status: * CKD, please provide stage - see criteria * Other (please specify) * Unable to determine Criteria for CHIDI* Stages of Chronic Kidney Disease* 1. Increase in serum creatinine by ? 0.3 mg/dL Level Description GFR (?26.5 micromol/L) within 48 hours, or G1 Normal or High > 90 2. Increase in serum creatinine to ?1.5 times baseline, G2 Mildly decreased 60 ? 89 which is known or presumed to have occurred within 7 days, or G3a Mildly to moderately decreased 45 ? 59 3. Urine volume <0.5 mL/kg/hour for six hours G3b Moderately to severely decreased 30 - 44 G4 Severely decreased 15 ? 29 G5 Kidney failure < 15 *Source: Kidney Disease: Improving Global Outcomes (KDIGO) 2012 Use of terms such as suspected, likely, concern for, or probable (associated with a specific diagnosis that is being evaluated, monitored, or treated as if it exists) are acceptable and can be coded in the inpatient setting, when documented at the time of discharge. Thank you, Gloria Vaz RN Extension: [phone] Please use your independent medical judgment in providing your response. THIS QUERY IS PART OF THE PERMANENT MEDICAL RECORD Provider Response: CKD Stage 4
[2021-08-06 13:31] LABS: Haptoglobin 203 mg/dL (43-212)
--- NOTE | 2021-08-06 15:30 | HO.PM.IMPN ---
Subjective Subjective Date of Service: 08/06/21 Review of Systems Follow up consult mastectomy doing well post op minimal pain Physical Exam Vital Signs: Vital Signs: Last Vital Signs Temp 97.4 F 08/06/21 13:25 Pulse 86 08/06/21 13:25 Resp 20 08/06/21 13:25 BP 127/64 08/06/21 13:25 Pulse Ox 100 08/06/21 11:31 BMI result Body Mass Index 22.2 Appearing in no acute distress lung sounds are clear to auscultation heart regular rate rhythm, clear S1, S2 positive bowel sounds, abdomen is soft, nontender neuro patient is alert x3, no focal deficits Surgical dressing MATTEO drains Objective Data Active Medications Acetaminophen (Acetaminophen 325 Mg Tablet) 650 mg PO Q6H PRN PRN Reason: Pain, Mild (Pain Scale 1-3) Amlodipine Besylate (Amlodipine Besylate 5 Mg Tablet) 5 mg PO DAILY [facility]; Protocol Last Admin: 08/06/21 10:41 Dose: 5 mg Documented by: JOANNA Aspirin (Aspirin Enteric Coated 81 Mg Tablet.) 81 mg PO DAILY [facility] Last Admin: 08/06/21 10:41 Dose: 81 mg Documented by: JOANNA Atorvastatin Calcium (Atorvastatin Calcium 10 Mg Tablet) 10 mg PO DAILY [facility] Last Admin: 08/06/21 10:41 Dose: 10 mg Documented by: JOANNA Dextrose (Dextrose 50 % 25 Gm/50 Ml Syringe) 25 gm IVPUSH Q15M PRN; Protocol PRN Reason: per Hypoglycemia Standing Ord. Glucose (Glucose Gel 15 Gm Gel..Gram.) 15 gm PO Q15M PRN; Protocol PRN Reason: per Hypoglycemia Standing Ord. Hydromorphone HCl (Hydromorphone Hcl 1 Mg/Ml Syringe) 0.5 mg IVPUSH Q4H PRN; Protocol PRN Reason: Pain, Severe (Pain Scale 7-10) Insulin Human Lispro (Insulin Lispro 100 Unit/Ml 3 Ml Vial) 0 unit SUBCUT QIDACHS [facility]; Protocol Last Admin: 08/06/21 11:36 Dose: 2 unit Documented by: CARLOS Ondansetron HCl (Ondansetron Hcl 4 Mg/2 Ml Vial) 4 mg IVPUSH Q8H PRN PRN Reason: Nausea Oxycodone HCl (Oxycodone Hcl Immed Release 5 Mg Tablet) 5 mg PO Q6H PRN PRN Reason: Pain, Moderate (Pain Scale 4-6 Senna/Docusate Sodium (Sennosides/Docusate Sodium Tablet) 1 tab PO BEDTIME [facility] Last Admin: 08/05/21 22:30 Dose: 1 tab Documented by: CAITLIN Sodium Chloride (0.9 % Sodium Chloride Flush 3 Ml Syringe) 3 ml IVFLUSH QSHIFT [facility] Last Admin: 08/06/21 10:42 Dose: 3 ml Documented by: JOANNA Vitamin D (Cholecalciferol (Vitamin D3) 25 Mcg Tablet) 50 mcg PO DAILY [facility] Last Admin: 08/06/21 10:41 Dose: 50 mcg Documented by: JOANNA Zolpidem Tartrate (Zolpidem Tartrate 5 Mg Tablet) 5 mg PO BEDTIME PRN PRN Reason: Insomnia Last Admin: 08/02/21 21:09 Dose: 5 mg Documented by: ESME Labs CBC & Chem 7: 08/05/21 05:36 08/05/21 05:36 Labs: Laboratory Results - last 24 hr 07/31/21 08/03/21 08/04/21 14:10 05:48 05:52 Haptoglobin Creatinine 1.76 H 2.67 H 2.20 H POC Glucose Vitamin B12 Folate Blood Type Antibody Screen Crossmatch 08/04/21 08/05/21 08/05/21 05:52 05:36 05:36 Haptoglobin 203 Creatinine 1.43 H POC Glucose Vitamin B12 552 Folate 3.4 L Blood Type Antibody Screen Crossmatch 08/05/21 08/05/21 08/06/21 15:32 19:55 07:15 Haptoglobin Creatinine POC Glucose 118 H 178 H 126 H Vitamin B12 Folate Blood Type Antibody Screen Crossmatch 08/06/21 08/06/21 09:36 10:47 Haptoglobin Creatinine POC Glucose 173 H Vitamin B12 Folate Blood Type A Positive Antibody Screen NEGATIVE Crossmatch See Detail Assessment and Plan (1) Type 2 diabetes mellitus with hyperglycemia: Status: Acute (2) Invasive ductal carcinoma of left breast: Status: Acute (3) Anemia: Status: Acute Plan This is an 81 yo F with a PMH of DM, 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 Medical consult requested for management of her elevated blood glucose s/p Left Mastectomy for invasive ductal carcinoma management per surgical service Normocytic Anemia. transfused 2 units PRBC No iron deficiency, no evidence of hemolysis Stool occult pending, but no rectal bleeding by history Probably r/t acute blood loss from surgery; still having output in MATTEO drains Thrombocytopenia platelets stable follow CBC DM Last A1C is 5.0; it appears she was taken off Lanuts at that time Glucose on AM labs found to be 287. 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 novak Quality Stroke Does the patient have a stroke diagnosis?: No VTE Prior VTE?: No VTE Risk Level:: Surgical - high VTE Device Contraindication: N/A - Device Ordered VTE Drug Contraindication: Treatment Not Indicated
[2021-08-06 17:06] LABS: Glucose, Whole Blood 117 mg/dL (60-115)
[2021-08-06 22:20] LABS: Glucose, Whole Blood 188 mg/dL (60-115)
[2021-08-06] MEDS: Sennosides/Docusate Sodium TABLET 1 TAB PO (22:26)
[2021-08-07 03:56] VITALS: BP 150/70; PULSE 90; RESP 14; TEMP 36.7; O2SAT 100
[2021-08-07 05:52] LABS: Mean Corpuscular HGB Conc 32.4 g/dl (31.0-35.0); Mean Corpuscular Hemoglobin 28.9 pg (27.0-33.0); Mean Corpuscular Volume 89.5 fL (80.0-98.0); Mean Platelet Volume 10.3 fL (9.4-12.3); Platelet Count 141 X10*3/uL (160-400); Red Cell Distribution Width 18.8 % (11.0-16.0); White Blood Count 9.7 X10*3/uL (4.8-10.8)
[2021-08-07 06:18] LABS: Anion Gap 13 (12-20); Blood Urea Nitrogen 45 mg/dL (9-16); Carbon Dioxide 25 mmol/L (22-29); Chloride 103 mmol/L (96-108); Creatinine Clr Calc Pharmacy 29.9; Estimated Glomerular Filt Rate 37; Glucose Random 123 mg/dL (60-115); Sodium 136 mmol/L (135-145)
[2021-08-07 07:46] VITALS: BP 145/74; PULSE 87; RESP 15; TEMP 36.8; O2SAT 100
[2021-08-07 07:57] LABS: Glucose, Whole Blood 111 mg/dL (60-115)
[2021-08-07] MEDS: Cholecalciferol (Vitamin D3) 25 MCG TABLET 50 MCG PO (09:19)
[2021-08-07] MEDS: 0.9 % Sodium Chloride Flush 3 ML SYRINGE IVFLUSH (09:19)
[2021-08-07] MEDS: Atorvastatin Calcium 10 MG TABLET PO (09:19)
[2021-08-07] MEDS: Aspirin Enteric Coated 81 MG TABLET.DR PO (09:19)
[2021-08-07] MEDS: amLODIPine Besylate 5 MG TABLET PO (09:19)
--- NOTE | 2021-08-07 10:39 | PM.PNGS ---
Subjective Subjective Date of Service: 08/07/21 Interval history: Feels well this morning and ready for discharge. Denies pain at mastectomy site. She is comfortable. Drain care discussed. Physical Exam Vital Signs: Vital Signs: Last Vital Signs Temp 98.2 F 08/07/21 07:46 Pulse 87 08/07/21 07:46 Resp 15 08/07/21 07:46 BP 145/74 H 08/07/21 07:46 Pulse Ox 100 08/07/21 07:46 BMI result Body Mass Index 22.2 Const: General: comfortable, no acute distress and alert Orientation/consciousness: patient oriented x3 Chest: Other: left mastectomy site incision clean, no evidence of seroma or hematoma, MATTEO drains continue with scanty sanguineous drainage- axillary more serosanguineous Resp: Effort & Inspection: normal respiratory effort Skin: Other: warm and dry General skin exam: no rashes or lesions noted Neuro: General: patient oriented x3 Objective Data Active Medications Acetaminophen (Acetaminophen 325 Mg Tablet) 650 mg PO Q6H PRN PRN Reason: Pain, Mild (Pain Scale 1-3) Amlodipine Besylate (Amlodipine Besylate 5 Mg Tablet) 5 mg PO DAILY [facility]; Protocol Last Admin: 08/07/21 09:19 Dose: 5 mg Documented by: JOANNA Aspirin (Aspirin Enteric Coated 81 Mg Tablet.) 81 mg PO DAILY [facility] Last Admin: 08/07/21 09:19 Dose: 81 mg Documented by: JOANNA Atorvastatin Calcium (Atorvastatin Calcium 10 Mg Tablet) 10 mg PO DAILY [facility] Last Admin: 08/07/21 09:19 Dose: 10 mg Documented by: JOANNA Dextrose (Dextrose 50 % 25 Gm/50 Ml Syringe) 25 gm IVPUSH Q15M PRN; Protocol PRN Reason: per Hypoglycemia Standing Ord. Glucose (Glucose Gel 15 Gm Gel..Gram.) 15 gm PO Q15M PRN; Protocol PRN Reason: per Hypoglycemia Standing Ord. Hydromorphone HCl (Hydromorphone Hcl 1 Mg/Ml Syringe) 0.5 mg IVPUSH Q4H PRN; Protocol PRN Reason: Pain, Severe (Pain Scale 7-10) Insulin Human Lispro (Insulin Lispro 100 Unit/Ml 3 Ml Vial) 0 unit SUBCUT QIDACHS [facility]; Protocol Last Admin: 08/07/21 08:03 Dose: Not Given Documented by: JOANNA Non-Admin Reason: No Insulin Coverage Ondansetron HCl (Ondansetron Hcl 4 Mg/2 Ml Vial) 4 mg IVPUSH Q8H PRN PRN Reason: Nausea Oxycodone HCl (Oxycodone Hcl Immed Release 5 Mg Tablet) 5 mg PO Q6H PRN PRN Reason: Pain, Moderate (Pain Scale 4-6 Senna/Docusate Sodium (Sennosides/Docusate Sodium Tablet) 1 tab PO BEDTIME [facility] Last Admin: 08/06/21 22:26 Dose: 1 tab Documented by: KIMBERLY Sodium Chloride (0.9 % Sodium Chloride Flush 3 Ml Syringe) 3 ml IVFLUSH QSHIFT [facility] Last Admin: 08/07/21 09:19 Dose: 3 ml Documented by: JOANNA Vitamin D (Cholecalciferol (Vitamin D3) 25 Mcg Tablet) 50 mcg PO DAILY [facility] Last Admin: 08/07/21 09:19 Dose: 50 mcg Documented by: JOANNA Zolpidem Tartrate (Zolpidem Tartrate 5 Mg Tablet) 5 mg PO BEDTIME PRN PRN Reason: Insomnia Last Admin: 08/02/21 21:09 Dose: 5 mg Documented by: ESME Labs CBC & Chem 7: 08/07/21 05:35 08/07/21 05:35 Labs: Laboratory Results - last 24 hr 08/05/21 08/06/21 08/06/21 05:36 09:36 10:47 MCV MCH MCHC RDW Plt Count MPV Absolute Nucleated RBC Nucleated RBC % (auto) Haptoglobin 203 Anion Gap Estim Creat Clear Calc Estimated GFR POC Glucose 173 H Random Glucose Calcium Blood Type A Positive Antibody Screen NEGATIVE Crossmatch See Detail 08/06/21 08/06/21 08/07/21 16:55 21:46 05:35 MCV 89.5 MCH 28.9 MCHC 32.4 RDW 18.8 H Plt Count 141 L MPV 10.3 Absolute Nucleated RBC 0.000 Nucleated RBC % (auto) 0.0 Haptoglobin Anion Gap Estim Creat Clear Calc Estimated GFR POC Glucose 117 H 188 H Random Glucose Calcium Blood Type Antibody Screen Crossmatch 08/07/21 08/07/21 05:35 07:53 MCV MCH MCHC RDW Plt Count MPV Absolute Nucleated RBC Nucleated RBC % (auto) Haptoglobin Anion Gap 13 Estim Creat Clear Calc 29.9 Estimated GFR 37 POC Glucose 111 Random Glucose 123 H Calcium 9.0 D Blood Type Antibody Screen Crossmatch Procedures Date of Service Date of Service: 08/07/21 Progress Note: A&P Assessment and plan (1) Invasive ductal carcinoma of left breast: Status: Acute Plan 81 year old female with invasive ductal carcinoma of left breast now s/p left modified radical mastectomy. Doing well post op, comfortable. VSS. Incision clean. JPs with sanguineous drainage. Transfused 2U overall, H/H now . She feels ready for discharge to home. Stable for d/c today to home with daily VNA services. Drain care discussed. Patient comfortable with plan. F/u in office with Dr. Junior in 1 week. Fall Risk Details Current Medications: Current Medications Acetaminophen (Acetaminophen 325 Mg Tablet) 650 mg PO Q6H PRN PRN Reason: Pain, Mild (Pain Scale 1-3) Amlodipine Besylate (Amlodipine Besylate 5 Mg Tablet) 5 mg PO DAILY [facility]; Protocol Last Admin: 08/07/21 09:19 Dose: 5 mg Documented by: Aspirin (Aspirin Enteric Coated 81 Mg Tablet.) 81 mg PO DAILY [facility] Last Admin: 08/07/21 09:19 Dose: 81 mg Documented by: Atorvastatin Calcium (Atorvastatin Calcium 10 Mg Tablet) 10 mg PO DAILY [facility] Last Admin: 08/07/21 09:19 Dose: 10 mg Documented by: Dextrose (Dextrose 50 % 25 Gm/50 Ml Syringe) 25 gm IVPUSH Q15M PRN; Protocol PRN Reason: per Hypoglycemia Standing Ord. Glucose (Glucose Gel 15 Gm Gel..Gram.) 15 gm PO Q15M PRN; Protocol PRN Reason: per Hypoglycemia Standing Ord. Hydromorphone HCl (Hydromorphone Hcl 1 Mg/Ml Syringe) 0.5 mg IVPUSH Q4H PRN; Protocol PRN Reason: Pain, Severe (Pain Scale 7-10) Insulin Human Lispro (Insulin Lispro 100 Unit/Ml 3 Ml Vial) 0 unit SUBCUT QIDACHS [facility]; Protocol Last Admin: 08/07/21 08:03 Dose: Not Given Documented by: Ondansetron HCl (Ondansetron Hcl 4 Mg/2 Ml Vial) 4 mg IVPUSH Q8H PRN PRN Reason: Nausea Oxycodone HCl (Oxycodone Hcl Immed Release 5 Mg Tablet) 5 mg PO Q6H PRN PRN Reason: Pain, Moderate (Pain Scale 4-6 Senna/Docusate Sodium (Sennosides/Docusate Sodium Tablet) 1 tab PO BEDTIME [facility] Last Admin: 08/06/21 22:26 Dose: 1 tab Documented by: Sodium Chloride (0.9 % Sodium Chloride Flush 3 Ml Syringe) 3 ml IVFLUSH QSHIFT [facility] Last Admin: 08/07/21 09:19 Dose: 3 ml Documented by: Vitamin D (Cholecalciferol (Vitamin D3) 25 Mcg Tablet) 50 mcg PO DAILY [facility] Last Admin: 08/07/21 09:19 Dose: 50 mcg Documented by: Zolpidem Tartrate (Zolpidem Tartrate 5 Mg Tablet) 5 mg PO BEDTIME PRN PRN Reason: Insomnia Last Admin: 08/02/21 21:09 Dose: 5 mg Documented by: Time Spent With Patient Time: Total time spent is greater than 50% in coordination of care (as documented) at patient's floor/unit and/or counseling patient: Time with patient: 15 - 24 minutes Quality Stroke Does the patient have a stroke diagnosis?: No VTE Prior VTE?: No VTE Risk Level:: Surgical - high VTE Device Contraindication: N/A - Device Ordered VTE Drug Contraindication: Treatment Not Indicated
--- NOTE | 2021-08-07 10:45 | P.F2F_ITS ---
Service Date Service Date: 08/07/21 Encounter Date of encounter: 08/07/21 Reasons for Services Signs and symptoms assessed: Pain control, incision appearance and MATTEO drain output, H/H Reason for detention: wound care and postoperative assessment and/or care (MATTEO drain care- empty and record output daily) Homebound: Leaving the home is medically contraindicated at this time without the asist of a device and/or another person due th the listed conditions above and below. Reason homebound: weakness related to hospital stay and unable to drive Homebound supporting statement: Ms. Adhikari is a 81 year old female with invasive ductal CA of left breast. She is s/p left modified radical mastectomy. She is wheelchair bound due to MS. She has two MATTEO drains in place which will need be to emptied daily with the output recorded. Change MATTEO drain dressing every other day. Certification: Based on the above findings, I certify that this patient is confined to the home and needs intermittent detention care, physical therapy and/or speech therapy, or continues to need occupational therapy. The patient is under my care, and I have initiated the establishment of the plan of care. The patient will be followed by a physician who will periodically review the plan of care.
--- NOTE | 2021-08-07 11:03 | P.DS_ITS ---
DS: Providers Provider Date of Service: 08/07/21 Date of admission: 08/02/21 06:11 Primary care physician: Kingston Guzman MD Attending physician on admission: Greg Junior Consults: 08/03/21 08:22 Consult to Hospitalist Routine Consulting Provider: Hospitalist Reason For Exam: elevated glucose, breast ca, s/p mastectomy DS: Diagnosis Discharge Diagnosis (1) Invasive ductal carcinoma of left breast: Status: Acute DS: Summary Hospital Course Hospital Course: BRIEF HPI: 81-year-old female patient with a prior history of invasive ductal carcinoma , ER /DC, HER2 David negative of the left breast in 2002, status post left breast lumpectomy, sentinel node biopsy, followed by chemotherapy and radiation therapy, recently identified as having a palpable mass in the left b reast at the upper portion of the left breast. Mammogram and ultrasound confirmed a suspicious mass and ultrasound-guided core biopsy confirmed a recurrent invasive ductal carcinoma, ER/DC positive HER2 David negative. HOSPITAL COURSE: On 08/02/21, a left modified radical mastectomy was performed by Dr. Junior without complication. The patient tolerated the procedure well, completed routine recovery and PACU and was admitted for observation. A hospitalist consult was obtained for management of her medical comorbidities. She had a slow recovery course. She was doing fairly well from a post operative standpoint with adequate pain control, tolerating a solid diet and dressings c/d/i on POD #1. Her MATTEO had sanguineous output, low to moderate. Her H/H had drifted down and her labs were repeated for the next few days. She ultimately required transfusion of 2U PRBC with appropriate rise in H/H. She also did develop an CHIDI on CKD and IV hydration was continued which gradually improved to around her baseline. Her AM glucose post operatively was initially in the 200s. Her insulin was recently discontinued. She was placed on ISS with improvement. Her incision remained clean without evidence of hematoma or seroma. Her AMTTEO drains continued with sanguineous drainage but more serosanguineous at discharge and low output. These were kept in place. She continued to have good pain control and was not needing analgesics. Her vitals and labs were stable. She felt ready for discharge to home with services. She was discharged to home with VNA services on 08/07/21 in stable condition. She is to follow up with Dr. Junior in office in 1 week for wound and drain check. She is to follow up with her PCP for further management regarding diabetes mellitus. Status at Discharge Functional status at discharge: wheelchair bound Overall status at discharge: patient is progressing back to baseline Time Spent with Patient Time attestation: Total time spent providing and/or coordinating discharge services: Discharge coordination time: Greater than 30 minutes Quality: Stroke Does the patient have a stroke diagnosis?: No Physical Exam Vital Signs: Vital Signs: Last Vital Signs Temp 98.2 F 08/07/21 07:46 Pulse 87 08/07/21 07:46 Resp 15 08/07/21 07:46 BP 145/74 H 08/07/21 07:46 Pulse Ox 100 08/07/21 07:46 BMI result Body Mass Index 22.2 Const: General: comfortable, no acute distress and alert Orientation/consciousness: patient oriented x3 Chest: Other: incision site clean, nontender, MATTEO drains with scanty sanguineous output (axillary drain serosanguineous #2) Resp: Effort & Inspection: normal respiratory effort Skin: Other: warm and dry Neuro: General: patient oriented x3 DS: Data Data Completed and Pending Pending studies at discharge: Pending at discharge 08/02/21 09:01 Surgical [PTH] Routine Labs on day of discharge: Laboratory Results - last 24 hr 08/05/21 08/06/21 08/06/21 05:36 09:36 10:47 WBC RBC Hgb Hct MCV MCH MCHC RDW Plt Count MPV Absolute Nucleated RBC Nucleated RBC % (auto) Haptoglobin 203 Sodium Potassium Chloride Carbon Dioxide Anion Gap BUN Creatinine Estim Creat Clear Calc Estimated GFR POC Glucose 173 H Random Glucose Calcium Blood Type A Positive Antibody Screen NEGATIVE Crossmatch See Detail 08/06/21 08/06/21 08/07/21 16:55 21:46 05:35 WBC 9.7 RBC 3.80 L D Hgb 11.0 L D Hct 34.0 L D MCV 89.5 MCH 28.9 MCHC 32.4 RDW 18.8 H Plt Count 141 L MPV 10.3 Absolute Nucleated RBC 0.000 Nucleated RBC % (auto) 0.0 Haptoglobin Sodium Potassium Chloride Carbon Dioxide Anion Gap BUN Creatinine Estim Creat Clear Calc Estimated GFR POC Glucose 117 H 188 H Random Glucose Calcium Blood Type Antibody Screen Crossmatch 08/07/21 08/07/21 05:35 07:53 WBC RBC Hgb Hct MCV MCH MCHC RDW Plt Count MPV Absolute Nucleated RBC Nucleated RBC % (auto) Haptoglobin Sodium 136 Potassium 5.0 Chloride 103 Carbon Dioxide 25 Anion Gap 13 BUN 45 H Creatinine 1.38 Estim Creat Clear Calc 29.9 Estimated GFR 37 POC Glucose 111 Random Glucose 123 H Calcium 9.0 D Blood Type Antibody Screen Crossmatch Discharge Plan Discharge Patient Disposition: Home Health Service Discharge Diagnosis: s/p left modified radical mastectomy Referrals: Greg Junior MD [Physician] - 1 Week Po,Kingston Parker MD [Primary Care Provider] - 1 Week Discharge Medications: New acetaminophen [Tylenol Extra Strength] 500 mg tablet 1,000 mg PO Q6H PRN (Reason: pain) Qty: 60 0RF Continued cholecalciferol (vitamin D3) 50 mcg (2,000 unit) capsule 50 mcg PO DAILY Qty: 90 3RF amlodipine 5 mg tablet 5 mg PO DAILY Qty: 90 3RF atorvastatin 10 mg tablet 10 mg PO DAILY Qty: 90 3RF aspirin [Adult Aspirin Regimen] 81 mg tablet,delayed release (DR/EC) 81 mg PO DAILY 0RF Senna Plus 8.6-50 mg capsule 1 tab-cap PO BEDTIME 0RF tramadol 50 mg tablet 50 mg PO BEDTIME Qty: 30 0RF Discharge Orders: Discharge Order (Routine); Ordered 08/07/21 Ordered By: Liliana Sidhu Diet: advance to usual diet Activity on Discharge: No heavy lifting Stand Alone Forms: Patient Portal Discharge page Activity Restrictions/Additional Instructions: If the incision area is tender, you may apply an ice pack for short intervals (No more than 20 minutes on, followed by at least 20 minutes off). Do not apply heat. Do not use creams, lotions, or topical antibiotics unless instructed to do so by your surgeon. These can cause infection or allergic reaction. Ok to shower. You have sarah closing your incision and these will be removed in 10-14 days. Change drain dressing every other day and PRN. MATTEO drain care- drain and measure output BID and PRN. Record output and bring log to follow up appointment. No heavy lifting (>10lbs) with left arm! Follow up in office with Dr. Junior in 1 week. ([phone]) Call Your Doctor If: -Your temperature exceeds 101.5? F -You experience excessive pain or swelling -You have an unexpected reaction to medication -You have excessive bleeding -You experience continued vomiting/nausea -Your incision begins to separate -Your incision shows signs of infection such as increased redness, swelling, excessive pain, drainage (light blood or clear fluid is normal) or heat Care Plan Goals: Return to baseline health and gradual return to activity following recovery period. MATTEO drain removal. Health Concerns: invasive ductal CA of left breast Plan of Treatment: S/p left modified radical mastectomy Home with VNA services F/u in office with Dr. Junior in 1 week Assessment: Doing well post op.
[2021-08-07 11:10] LABS: Glucose, Whole Blood 164 mg/dL (60-115)
--- NOTE | 2021-08-07 11:24 | MHC.CM.PN ---
Addendum entered by Nataliya Mondragon 08/07/21 13:01: PLAN IS NOW 1500 TRANSPORT FOR PATIENT.[facility] ([phone]) AWARE AND IN AGREEMENT. UNIT AND RN ALSO AWARE. Original Note: PATIENT TO RETURN HOME THIS AFTERNOON WITH [facility]FORT [facility]. TRANSPORT TO BE ARRANGED FOR 1600 REQUEST. RN AWARE OF PLAN. IMM 08/06 IN CHART
[2021-08-07 12:00] VITALS: BP 130/65; PULSE 56; RESP 18; TEMP 36.8; O2SAT 99
[2021-08-07] MEDS: Insulin Lispro 100 UNIT/ML 3 ML VIAL SUBCUT (12:08)
== END 2021-08-07 15:38 | disposition home health service (06) | DRG 582 ==
LOC: HO.SSSA 06:13 → HO.S3 12:33
PROVIDERS: Nurse Practitioner; Nurse Practitioner Acute Care; Physician Assistant Medical; Admitting Provider Surgery; PCP Internal Medicine; Visit Provider Surgery
PROC: 0HTU0ZZ Resection of Left Breast, Open Approach (ICD-10-PCS; CPT 19307; principal; 2021-08-02 07:30)
DX: C50.812 Malignant neoplasm of overlapping sites of left female breast (principal); N18.4 Chronic kidney disease, stage 4 (severe); N17.9 Acute kidney failure, unspecified; G35 Multiple sclerosis; I12.9 Hypertensive chronic kidney disease with stage 1 through stage 4 chronic kidney disease, or unspecified chronic kidney disease; E11.22 Type 2 diabetes mellitus with diabetic chronic kidney disease; D63.0 Anemia in neoplastic disease; E11.65 Type 2 diabetes mellitus with hyperglycemia; D69.6 Thrombocytopenia, unspecified; E78.5 Hyperlipidemia, unspecified; Z99.3 Dependence on wheelchair; Z20.822 Contact with and (suspected) exposure to COVID-19; Z87.891 Personal history of nicotine dependence; Z79.82 Long term (current) use of aspirin; Z79.899 Other long term (current) drug therapy
CPT/HCPCS: 36415; 80048; 80076; 82607; 82746; 82947; 83010; 83540; 83615; 85025; 85027; 85045; 86850; 86900; 86901; 86923; 87635; 88307; 88309; 93005; 99024; J0131; J0690; J1100; J2405; J3010; P9016

== ENCOUNTER → 2021-08-28 11:05 | Outpatient (BNVA) | payer MEDICARE, OTHER, SELFPAY | PROVIDERS: PCP Internal Medicine; Visit Provider Surgery | DX: D05.12 Intraductal carcinoma in situ of left breast (principal); Z17.0 Estrogen receptor positive status [ER+]; Z90.12 Acquired absence of left breast and nipple; E11.22 Type 2 diabetes mellitus with diabetic chronic kidney disease; E11.21 Type 2 diabetes mellitus with diabetic nephropathy; I12.9 Hypertensive chronic kidney disease with stage 1 through stage 4 chronic kidney disease, or unspecified chronic kidney disease; N18.9 Chronic kidney disease, unspecified; E78.00 Pure hypercholesterolemia, unspecified; E55.9 Vitamin D deficiency, unspecified; Z79.4 Long term (current) use of insulin; Z79.84 Long term (current) use of oral hypoglycemic drugs; Z92.21 Personal history of antineoplastic chemotherapy; Z92.3 Personal history of irradiation; Z79.82 Long term (current) use of aspirin; Z79.899 Other long term (current) drug therapy | CPT/HCPCS: 99212 ==

== ENCOUNTER 2021-09-28 13:57 | Outpatient (REF) | payer MEDICARE, OTHER, SELFPAY ==
--- NOTE | ~2021-09-28 | MM_ITS ---
EXAMINATION: BONE DENSITOMETRY CLINICAL INDICATION: Osteopenia. COMPARISON: Previous BD dated 03/17/2015 and baseline BD dated 01/27/2009. TECHNIQUE: Using a [employer] [place] DXA System (software version: 13.1) manufactured by [employer], dual-energy x-ray absorptiometry was performed of the lumbar spine and left hip. The images are of good technical quality. Summary results are attached. FINDINGS: AP SPINE L1-L4: Lumbar spine bone mineral density is falsely elevated due to degenerative sclerosis. Current: BMD 1.477 g/cm2, Z-score 3.5, T-score 2.5, normal, 0.3% increase from previous, 3.0% increase from baseline (<5% change is not significant). Prior: BMD 1.473 g/cm2. Baseline: BMD 1.434 g/cm2. LEFT FEMUR, NECK: Current: BMD 0.618 g/cm2, Z-score -1.8, T-score -3.0, osteoporosis. Prior: BMD 0.749 g/cm2. Baseline: BMD 0.972 g/cm2. LEFT FEMUR, TOTAL: Current: BMD 0.680 g/cm2, Z-score -1.6, T-score -2.6, osteoporosis, 15.0% decrease from previous, 35.3% decrease from baseline (<5% change is not significant). Prior: BMD 0.800 g/cm2. Baseline: BMD 1.051 g/cm2. IDENTIFIED RISK FACTORS: Osteoporosis, renal. Early menopause, secondary osteoporosis, osteoporosis. HISTORY OF FRACTURE: None listed. MEDICATIONS: Calcium supplements or multivitamin, vitamin D. MM/XR DEXA axial skeleton IMPRESSION: 1. DIAGNOSIS: Osteoporosis based on the lowest T-score value of -3.0 in the femoral neck applying World Health Organization criteria. 2. 10-YEAR FRACTURE RISK PREDICTION, FRAX: Major osteoporotic fracture (clinical spine, forearm, hip or shoulder) 12.1%. Hip fracture 4.9%. 3. Treatment Recommendations: NOF guidelines recommend consideration for treatment in postmenopausal women and men age 50 and older presenting with the following: -A hip or vertebral (clinical or morphometric) fracture. -T-score less than or equal to -2.5 at the femoral neck or spine after appropriate evaluation to exclude secondary causes. -Low bone mass at the hip or spine and a 10-year fracture probability by FRAX of greater than or equal to 3% for hip fracture or greater than or equal to 20% for major osteoporotic fracture based on the [place] adapted WHO algorithm. 4. Other Recommendations: All treatment decisions require clinical judgment and consideration of individual patient factors, including patient preferences, comorbidities, previous drug use, risk factors not captured in the FRAX model (e.g. frailty, falls, vitamin D deficiency, increased bone turnover, interval significant decline in bone density) and possible under or overestimation of fracture risk by FRAX. Additional medical evaluation for secondary cause of low bone mineral density may be appropriate. FUTURE SCAN RECOMMENDATION: People with diagnosed cases of osteoporosis or at high risk for fracture should have regular bone mineral density tests. For patients eligible for Medicare, routine testing is allowed once every 2 years. The testing frequency can be increased to one year for patients who have rapidly progressing disease, those who are receiving or discontinuing medical therapy to restore bone mass, or have additional risk factors.
== END 2021-09-28 13:58 | disposition home or self-care (01) ==
LOC: HO.MAMMO 13:57
PROVIDERS: PCP Internal Medicine; Visit Provider Internal Medicine Medical Oncology
DX: Z13.820 Encounter for screening for osteoporosis (principal); Z78.0 Asymptomatic menopausal state; M85.88 Other specified disorders of bone density and structure, other site; C50.919 Malignant neoplasm of unspecified site of unspecified female breast
CPT/HCPCS: 77080

== ENCOUNTER → 2021-10-09 15:40 | Outpatient (BNVA) | payer MEDICARE, OTHER, SELFPAY | PROVIDERS: PCP Internal Medicine; Referring Provider Internal Medicine; Visit Provider Surgery | DX: Z48.3 Aftercare following surgery for neoplasm (principal); C50.912 Malignant neoplasm of unspecified site of left female breast | CPT/HCPCS: 99212 ==

== ENCOUNTER 2021-11-02 18:31 | Inpatient (IN) | payer MEDICARE, OTHER, SELFPAY ==
--- NOTE | ~2021-11-02 | CT_ITS ---
EXAM: CT scan of the head and cervical spine. INDICATION: Reason for Exam s/p fall TECHNIQUE: A noncontrast CT scan was performed from the skull base to the vertex. A noncontrast CT scan of the cervical spine was performed from the base of the skull through T1 at 2.5 mm and 1.25 mm collimation. Coronal and sagittal reformats were obtained at the acquisition workstation. This CT examination was performed using dose optimization techniques as appropriate, variously including the following: *Automated exposure control *Adjustment of mA and/or kV according to patient size (this includes techniques or standardized protocols for targeted exams where dose is matched to indication/reason for exam; i.e. extremities or head) *Use of iterative reconstruction technique DLP: 627 and 253 mGy-cm COMPARISON: None FINDINGS: Head: There is no evidence of acute intracranial hemorrhage or territorial infarction. Conteh-white matter differentiation is preserved. No abnormal mass effect or midline shift. No extra-axial fluid collections. No abnormal attenuation is demonstrated within the brain parenchyma. Scattered periventricular and deep white matter hypodensities consistent with microangiopathy. The ventricles and sulcal spaces are proportional without hydrocephalus. Proportional prominence of the ventricles and sulcal spaces. No acute osseous or soft tissue abnormalities. The mastoid air cells and visualized portions of the paranasal sinuses are well aerated. Cervical Spine: Severe degeneration of the C5 C6 C7 disc spaces. No fracture or subluxation. The atlantooccipital and atlantoaxial articulations remain well aligned. Straightening of the normal cervical lordosis. Otherwise, there is anatomic alignment of the vertebral bodies and posterior elements. No evidence of acute fracture or subluxation. The vertebral body heights and disc spaces are maintained. There is no prevertebral soft tissue swelling. The thyroid gland and remaining cervical soft tissues are normal in appearance. The lung apices demonstrate no abnormalities. CT/CT cervical spine wo con IMPRESSION: No acute intracranial pathology. No fracture subluxation cervical spine. EXAMS: Left knee 4 views and pelvis one view: HISTORY: Fall. FINDINGS: Left knee: Generalized chondrocalcinosis and spurring. No discrete lesion. No effusion. Pelvis: Limited imaging due to internal rotation of both hips. No gross deformity. Joint spaces preserved. No dislocation. Sclerosis about the SI joints noted incidentally. IMPRESSION: No fracture.
--- NOTE | 2021-11-02 18:07 | ED.FALL ---
HPI - Fall General Chief Complaint: Fall Stated Complaint: fall - found down Time Seen by Provider: 11/02/21 18:33 Source: patient Mode of arrival: EMS Limitations: no limitations History of Present Illness HPI Narrative: Patient 81 years old wheelchair 1 because of weakness had fallen 2 times since yesterday says that his she was sitting on the wheelchair and wheelchair tripped and both time she fell while sitting on the wheelchair. Patient does have pain in the left knee denies any headache or head injury or neck pain but she was found with face down when EMS reached noted any blood thinners no loss of conscious no chest pain patient otherwise feels okay Related Data Home Medications Medication Instructions Recorded Confirmed aspirin 81 mg tablet,delayed 81 mg PO DAILY 08/08/20 11/03/21 release (Adult Aspirin Regimen) sennosides 8.6 mg-docusate sodium 1 tab-cap PO BEDTIME 08/08/20 11/03/21 50 mg capsule (Senna Plus) Previous Rx's Medication Instructions Recorded tramadol 50 mg tablet 50 mg PO BEDTIME #30 tab 08/08/20 atorvastatin 10 mg tablet 10 mg PO DAILY #90 cap 11/18/20 acetaminophen 500 mg tablet 1,000 mg PO Q6H PRN #60 tab 08/07/21 (Tylenol Extra Strength) amlodipine 5 mg tablet 5 mg PO DAILY #90 cap 09/14/21 cholecalciferol (vitamin D3) 50 50 mcg PO DAILY #90 cap 09/14/21 mcg (2,000 unit) capsule calcium carbonate 600 mg calcium 600 mg PO BID #60 tab 10/17/21 (1,500 mg) tablet (Calcium) tamoxifen 20 mg tablet 20 mg PO DAILY #90 tab 10/17/21 Allergies Allergy/AdvReac Type Severity Reaction Status Date / Time No Known Allergies Allergy Verified 10/17/21 15:27 Review of Systems Review of Systems: Yes all other systems are reviewed and are negative [facility] Past Medical History Medical History Anemia Breast cancer Chronic kidney disease Diabetes Diabetic nephropathy DVT (deep venous thrombosis) Hypercholesterolemia Hypertension Multiple sclerosis Peripheral vascular disease Poor historian Renal artery stenosis Vitamin D deficiency Surgical History H/O colonoscopy H/O total mastectomy of left breast History of breast lump/mass excision History of intravascular stent placement Family History Family History Father Hypertension Chronic kidney failure Mother Hypertension Diabetes Brother CKD (chronic kidney disease) Brother Gunshot wound Sister Throat cancer Son No problems noted. Daughter No problems noted. Social History Social History Household Members: None Housing: House Are you a primary direct support professional caregiver to a significant other at home: No Do you presently have visiting nurse or other home services: No Alcohol intake: never Patient Tobacco Use Status: Former Tobacco user Quit Date: as teenager Tobacco use type: Cigarette e-Cigarette/Vaping Use: Never Used Advance Directives: Yes Advance Directives on File: Yes Advance Directives Date on File: 06/06/15 service: No Current occupational status: retired Physical Exam Vital Signs: Vital Signs: Last Vital Signs Temp 97.7 F 11/02/21 22:44 Pulse 94 11/03/21 00:31 Resp 15 11/03/21 00:31 BP 140/73 H 11/03/21 00:31 Pulse Ox 97 11/03/21 00:31 BMI result Body Mass Index 21.9 Appearance: Alert. Oriented X3. No acute distress. Eyes: PERRLA, HEENT: Pharynx normal. Oral Mucosa moist atraumatic normocephalic Neck: Normal inspection. Neck supple. CVS: Normal heart rate and rhythm. Pulses normal. Respiratory: No respiratory distress. Equal air entry bilateral, no wheezing/rales/rhonchi Abdomen: Soft and nontender. Bowel sounds are present, no mass palpable, no CVA tenderness Skin: Skin warm and dry. Normal skin color. Normal skin turgor. Extremities: No lower extremity edema. No calf tenderness spells of aeration left pappas diffuse tenderness left knee with good range of movement no deformity Neuro: Oriented X 3. No motor deficit. No sensory deficit.No cerebellar signs , cranial nerves II-XII intact MDM - Fall MDM Narrative Medical decision making narrative: Patient with mechanical fall noticed to be in CHIDI with UTI will admit patient for IV hydration IV antibiotics Lab Data Attestation: I reviewed the patient's lab results. Result diagrams: 11/02/21 19:30 11/03/21 00:03 Labs: Lab Results 11/02/21 11/02/21 11/02/21 Range/Units 19:30 19:30 19:56 WBC 11.6 H (4.8-10.8) X10*3/uL RBC 2.99 L (4.20-5.50) X10*6/uL Hgb 8.7 L (12.0-16.0) g/dl Hct 27.2 L (37.0-47.0) % MCV 91.0 (80.0-98.0) fL MCH 29.1 (27.0-33.0) pg MCHC 32.0 (31.0-35.0) g/dl RDW 19.1 H (11.0-16.0) % Plt Count 169 (160-400) X10*3/uL MPV 10.5 (9.4-12.3) fL Immature Gran % (Auto) 1.0 H (0.0-0.4) % Neut % (Auto) 83.9 H (45-73) % Lymph % (Auto) 6.2 L (20-40) % [place] % (Auto) 8.8 (2-11) % Eos % (Auto) 0.0 (0-4) % Baso % (Auto) 0.1 (0-2) % Lymph # (Auto) 0.7 L (1.2-4.9) X10*3/uL [place] # (Auto) 1.0 (0.1-1.2) X10*3/uL Eos # (Auto) 0.0 (0.0-0.4) X10*3/uL Baso # (Auto) 0.0 (0.0-0.2) X10*3/uL Abs Immat Gran (auto) 0.12 H (0.00-0.03) X10*3/uL Absolute Neuts (auto) 9.7 H (2.0-8.3) x10*3/uL Absolute Nucleated RBC 0.000 (0.0-0.012) X10*3/uL Nucleated RBC % (auto) 0.0 (0.0-0.2) /100WBC Sodium 137 (135-145) mmol/L Potassium 5.7 H (3.3-5.1) mmol/L Chloride 103 (96-108) mmol/L Carbon Dioxide 19 L (22-29) mmol/L Anion Gap 21 H (12-20) BUN 71 H D (9-16) mg/dL Creatinine 3.34 H (0.5-1.4) mg/dL Estim Creat Clear Calc 12.8 Estimated GFR 13 Random Glucose 178 H (60-115) mg/dL Lactic Acid (0.5-2.0) mmol/L Calcium 9.0 (8.4-10.2) mg/dL Total Bilirubin 0.6 (0.0-1.0) mg/dL AST 36 H D (5-31) U/L ALT 31 (0-31) U/L Alkaline Phosphatase 90 (39-117) U/L Total Protein 7.6 (6.5-8.0) g/dL Albumin 3.6 (3.5-5.0) g/dL Urine Color YELLOW Urine Appearance TURBID Urine pH 7.5 (5.0-8.0) Ur Specific [place] 1.020 (1.005-1.025) Urine Protein 2+ H (NEG-TRACE) MG/DL Urine Glucose (UA) NEG (NEG) MG/DL Urine Ketones 15 (NEG) MG/DL Urine Blood 3+ H (NEG) Urine Nitrite NEG (NEG) Ur Leukocyte Esterase 3+ H (NEG) Urine RBC 30-49 H (0) /HPF Urine WBC TNTC H (0-4) /HPF Ur Squamous Epith Cells 1+ /LPF Urine Bacteria 4+ /LPF COVID-19 (TERE) (Negative) COVID-19 Clin Com 11/02/21 11/02/21 Range/Units 20:58 21:14 WBC (4.8-10.8) X10*3/uL RBC (4.20-5.50) X10*6/uL Hgb (12.0-16.0) g/dl Hct (37.0-47.0) % MCV (80.0-98.0) fL MCH (27.0-33.0) pg MCHC (31.0-35.0) g/dl RDW (11.0-16.0) % Plt Count (160-400) X10*3/uL MPV (9.4-12.3) fL Immature Gran % (Auto) (0.0-0.4) % Neut % (Auto) (45-73) % Lymph % (Auto) (20-40) % [place] % (Auto) (2-11) % Eos % (Auto) (0-4) % Baso % (Auto) (0-2) % Lymph # (Auto) (1.2-4.9) X10*3/uL [place] # (Auto) (0.1-1.2) X10*3/uL Eos # (Auto) (0.0-0.4) X10*3/uL Baso # (Auto) (0.0-0.2) X10*3/uL Abs Immat Gran (auto) (0.00-0.03) X10*3/uL Absolute Neuts (auto) (2.0-8.3) x10*3/uL Absolute Nucleated RBC (0.0-0.012) X10*3/uL Nucleated RBC % (auto) (0.0-0.2) /100WBC Sodium (135-145) mmol/L Potassium (3.3-5.1) mmol/L Chloride (96-108) mmol/L Carbon Dioxide (22-29) mmol/L Anion Gap (12-20) BUN (9-16) mg/dL Creatinine (0.5-1.4) mg/dL Estim Creat Clear Calc Estimated GFR Random Glucose (60-115) mg/dL Lactic Acid 0.9 (0.5-2.0) mmol/L Calcium (8.4-10.2) mg/dL Total Bilirubin (0.0-1.0) mg/dL AST (5-31) U/L ALT (0-31) U/L Alkaline Phosphatase (39-117) U/L Total Protein (6.5-8.0) g/dL Albumin (3.5-5.0) g/dL Urine Color Urine Appearance Urine pH (5.0-8.0) Ur Specific [place] (1.005-1.025) Urine Protein (NEG-TRACE) MG/DL Urine Glucose (UA) (NEG) MG/DL Urine Ketones (NEG) MG/DL Urine Blood (NEG) Urine Nitrite (NEG) Ur Leukocyte Esterase (NEG) Urine RBC (0) /HPF Urine WBC (0-4) /HPF Ur Squamous Epith Cells /LPF Urine Bacteria /LPF COVID-19 (TERE) Negative (Negative) COVID-19 Clin Com See Note ECG Data Attestation: I personally reviewed and interpreted this ECG as follows: Interpretation: Sent tachycardia with heart rate 105 beats per minute normal interval normal axis no acute ST-T changes no acute ischemia Discharge Plan Discharge Clinical Impression: CHIDI (acute kidney injury), Fall
[2021-11-02 18:26] VITALS: BP 132/82; PULSE 122; O2SAT 99
[2021-11-02 18:31] VITALS: BP 132/78; PULSE 111; RESP 16; TEMP 36.6; O2SAT 98; BMI 21.9
--- NOTE | 2021-11-02 18:34 | ECG_ITS ---
Test Reason : FALL Blood Pressure : / mmHG Vent. Rate : 105 BPM Atrial Rate : 105 BPM P-R Int : 148 ms QRS Dur : 070 ms QT Int : 346 ms P-R-T Axes : 026 -27 037 degrees QTc Int : 457 ms Sinus tachycardia Otherwise normal ECG When compared with ECG of 31-JUL-2021 14:12, No significant change was found Referred By: David Simeon Electronically Signed By:VEL KEARNEY MD
[2021-11-02 18:55] VITALS: BP 146/75; PULSE 106; RESP 16; TEMP 36.7; O2SAT 97
[2021-11-02 19:50] LABS: MANUAL DIFF FLAG NO
[2021-11-02 19:51] LABS: Basophils Percent Auto 0.1 % (0-2); Hematocrit 27.2 % (37.0-47.0); Hemoglobin 8.7 g/dl (12.0-16.0); Imm Gran Abs Auto 0.12 X10*3/uL (0.00-0.03); Lymphocytes Absolute Auto 0.7 X10*3/uL (1.2-4.9); Lymphocytes Percent Auto 6.2 % (20-40); Mean Corpuscular Hemoglobin 29.1 pg (27.0-33.0); Mean Platelet Volume 10.5 fL (9.4-12.3); Monocytes Percent Auto 8.8 % (2-11); Neutrophils Absolute Auto 9.7 x10*3/uL (2.0-8.3); Neutrophils Percent Auto 83.9 % (45-73); Platelet Count 169 X10*3/uL (160-400); Red Blood Count 2.99 X10*6/uL (4.20-5.50); Red Cell Distribution Width 19.1 % (11.0-16.0); White Blood Count 11.6 X10*3/uL (4.8-10.8)
[2021-11-02] MEDS: 0.9 % Sodium Chloride 1,000 ML 999 ML IV ×2 (19:56→22:27)
[2021-11-02 20:08] LABS: Alanine Aminotransferase 31 U/L (0-31); Albumin Level 3.6 g/dL (3.5-5.0); Alkaline Phosphatase 90 U/L (39-117); Anion Gap 21 (12-20); Aspartate Amino Transferase 36 U/L (5-31); Bilirubin Total 0.6 mg/dL (0.0-1.0); Blood Urea Nitrogen 71 mg/dL (9-16); Carbon Dioxide 19 mmol/L (22-29); Chloride 103 mmol/L (96-108); Creatinine Clr Calc Pharmacy 12.8; Estimated Glomerular Filt Rate 13; Glucose Random 178 mg/dL (60-115); Potassium 5.7 mmol/L (3.3-5.1); Sodium 137 mmol/L (135-145); Total Protein 7.6 g/dL (6.5-8.0)
[2021-11-02 20:10] LABS: Appearance Urine TURBID; Color Urine YELLOW; Glucose Urine UA NEG (NEG); Leukocyte Esterase Urine 3+ (NEG); Nitrite Urine NEG (NEG); PH 7.5 (5.0-8.0); UACC Culture Trigger YES; Urine Blood 3+ (NEG); Urine Ketones 15 MG/DL (NEG); Urine Protein 2+ MG/DL (NEG-TRACE)
[2021-11-02 20:16] LABS: RBC Urine 30-49 /HPF (0); Squamous Epithelial Cell Urine 1+ /LPF; WBC Urine TNTC /HPF (0-4)
[2021-11-02 20:17] LABS: Bacteria Urine 4+ /LPF
[2021-11-02 21:30] LABS: Lactic Acid 0.9 mmol/L (0.5-2.0)
[2021-11-02 21:34] LABS: COVID-19 Test Negative (Negative)
[2021-11-02] MEDS: cefTRIAXone sodium 1 GM in 0.9 % Sodium Chloride 50 ML IV (22:27)
[2021-11-02 22:44] VITALS: BP 143/80; PULSE 100; RESP 19; TEMP 36.5; O2SAT 99
--- NOTE | 2021-11-02 23:34 | P.HPHOSP_ITS ---
History of Present Illness Date of Service: 11/02/21 Chief Complaint: Fall 81-year-old female with a past medical history of hypertension, hyperlipidemia, diabetes, history of DVT, vitamin-D deficiency, renal artery stenosis, peripheral vascular disease, multiple sclerosis-resultant wheelchair-bound; chronic kidney disease, history of breast cancer, anemia presented to the hospital with a chief complaint of fall. Patient reports that she fell down from her wheelchair twice; landed on the knee; denies any head strike or loss of consciousness. Complained of pain in the knees briefly. Mentioned that she has urinary discomfort but which has been chronic. Denies any fevers at him. Denies any nausea vomiting or diarrhea. Denies any chest pain or palpitations. Denies any lightheadedness dizziness. Review of all other systems is negative except mentioned above ER course: Per ER team patient x-rays were negative for any fractures; urinalysis was abnormal consistent with UTI. Given ceftriaxone. Also noted to have acute on chronic kidney injury. Admitted for further management. [facility] Medical History Anemia Breast cancer Chronic kidney disease Diabetes Diabetic nephropathy DVT (deep venous thrombosis) Hypercholesterolemia Hypertension Multiple sclerosis Peripheral vascular disease Poor historian Renal artery stenosis Vitamin D deficiency Family History Father Hypertension Chronic kidney failure Mother Hypertension Diabetes Brother CKD (chronic kidney disease) Brother Gunshot wound Sister Throat cancer Son No problems noted. Daughter No problems noted. Surgical History H/O colonoscopy H/O total mastectomy of left breast History of breast lump/mass excision History of intravascular stent placement Social History Household Members: None Housing: House Are you a primary care manager to a significant other at home: No Do you presently have visiting nurse or other home services: No Alcohol intake: never Patient Tobacco Use Status: Former Tobacco user Quit Date: as teenager Tobacco use type: Cigarette e-Cigarette/Vaping Use: Never Used Advance Directives: Yes Advance Directives on File: Yes Advance Directives Date on File: 06/06/15 service: No Current occupational status: retired Meds Allergies Allergy/AdvReac Type Severity Reaction Status Date / Time No Known Allergies Allergy Verified 10/17/21 15:27 Home Medications Medication Instructions Recorded Confirmed Last Taken Type aspirin 81 mg tablet,delayed 81 mg PO DAILY 08/08/20 10/17/21 07/31/21 History release (Adult Aspirin Regimen) sennosides 8.6 mg-docusate sodium 1 tab-cap PO BEDTIME 08/08/20 10/17/21 Unknown History 50 mg capsule (Senna Plus) Physical Exam Vital Signs and Narrative: Vital Signs: Last Vital Signs Temp 97.7 F 11/02/21 22:44 Pulse 100 11/02/21 22:44 Resp 19 11/02/21 22:44 BP 143/80 H 11/02/21 22:44 Pulse Ox 99 11/02/21 22:44 BMI result Body Mass Index 21.9 Results Labs CBC and Chem 7: 11/02/21 19:30 11/02/21 19:30 Labs: Laboratory Results - last 24 hr 11/02/21 11/02/21 11/02/21 19:30 19:30 19:56 MCV 91.0 MCH 29.1 MCHC 32.0 RDW 19.1 H Plt Count 169 MPV 10.5 Immature Gran % (Auto) 1.0 H Neut % (Auto) 83.9 H Lymph % (Auto) 6.2 L [place] % (Auto) 8.8 Eos % (Auto) 0.0 Baso % (Auto) 0.1 Lymph # (Auto) 0.7 L [place] # (Auto) 1.0 Eos # (Auto) 0.0 Baso # (Auto) 0.0 Abs Immat Gran (auto) 0.12 H Absolute Neuts (auto) 9.7 H Absolute Nucleated RBC 0.000 Nucleated RBC % (auto) 0.0 Anion Gap 21 H Estim Creat Clear Calc 12.8 Estimated GFR 13 Random Glucose 178 H Lactic Acid Calcium 9.0 Total Bilirubin 0.6 AST 36 H D ALT 31 Alkaline Phosphatase 90 Total Protein 7.6 Albumin 3.6 Urine Color YELLOW Urine Appearance TURBID Urine pH 7.5 Ur Specific [place] 1.020 Urine Protein 2+ H Urine Glucose (UA) NEG Urine Ketones 15 Urine Blood 3+ H Urine Nitrite NEG Ur Leukocyte Esterase 3+ H Urine RBC 30-49 H Urine WBC TNTC H Ur Squamous Epith Cells 1+ Urine Bacteria 4+ COVID-19 (TERE) COVID-19 Clin Com 11/02/21 11/02/21 20:58 21:14 MCV MCH MCHC RDW Plt Count MPV Immature Gran % (Auto) Neut % (Auto) Lymph % (Auto) [place] % (Auto) Eos % (Auto) Baso % (Auto) Lymph # (Auto) [place] # (Auto) Eos # (Auto) Baso # (Auto) Abs Immat Gran (auto) Absolute Neuts (auto) Absolute Nucleated RBC Nucleated RBC % (auto) Anion Gap Estim Creat Clear Calc Estimated GFR Random Glucose Lactic Acid 0.9 Calcium Total Bilirubin AST ALT Alkaline Phosphatase Total Protein Albumin Urine Color Urine Appearance Urine pH Ur Specific [place] Urine Protein Urine Glucose (UA) Urine Ketones Urine Blood Urine Nitrite Ur Leukocyte Esterase Urine RBC Urine WBC Ur Squamous Epith Cells Urine Bacteria COVID-19 (TERE) Negative COVID-19 Clin Com See Note Imaging Radiologist's Impressions: Impressions Knee X-Ray 11/02/21 18:52 IMPRESSION: No acute intracranial pathology. No fracture subluxation cervical spine. EXAMS: Left knee 4 views and pelvis one view: HISTORY: Fall. FINDINGS: Left knee: Generalized chondrocalcinosis and spurring. No discrete lesion. No effusion. Pelvis: Limited imaging due to internal rotation of both hips. No gross deformity. Joint spaces preserved. No dislocation. Sclerosis about the SI joints noted incidentally. IMPRESSION: No fracture. Pelvis X-Ray 11/02/21 18:52 IMPRESSION: No acute intracranial pathology. No fracture subluxation cervical spine. EXAMS: Left knee 4 views and pelvis one view: HISTORY: Fall. FINDINGS: Left knee: Generalized chondrocalcinosis and spurring. No discrete lesion. No effusion. Pelvis: Limited imaging due to internal rotation of both hips. No gross deformity. Joint spaces preserved. No dislocation. Sclerosis about the SI joints noted incidentally. IMPRESSION: No fracture. Cervical Spine CT 11/02/21 18:57 IMPRESSION: No acute intracranial pathology. No fracture subluxation cervical spine. EXAMS: Left knee 4 views and pelvis one view: HISTORY: Fall. FINDINGS: Left knee: Generalized chondrocalcinosis and spurring. No discrete lesion. No effusion. Pelvis: Limited imaging due to internal rotation of both hips. No gross deformity. Joint spaces preserved. No dislocation. Sclerosis about the SI joints noted incidentally. IMPRESSION: No fracture. Head CT 11/02/21 18:57 IMPRESSION: No acute intracranial pathology. No fracture subluxation cervical spine. EXAMS: Left knee 4 views and pelvis one view: HISTORY: Fall. FINDINGS: Left knee: Generalized chondrocalcinosis and spurring. No discrete lesion. No effusion. Pelvis: Limited imaging due to internal rotation of both hips. No gross deformity. Joint spaces preserved. No dislocation. Sclerosis about the SI joints noted incidentally. IMPRESSION: No fracture. 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 Fall: Mechanical in nature. Patient is wheelchair bound. Supportive care. Imaging negative for acute fracture. UTI: Patient denies any new symptoms. Empirically covered with ceftriaxone. Follow up cultures. CHIDI on CKD: Baseline creatinine around 1.5. Creatinine on presentation was 3.3. Avoid nephrotoxins. Nephrology consult. Mild hyperkalemia: Likely in the setting of CHIDI. Patient being given gentle fluids. Repeat BMP. History of multiple sclerosis: Chronic. No new complaints. Patient is wheelchair bound. Supportive care. History of diabetes: Insulin sliding scale History of hypertension/hyperlipidemia: Continue home amlodipine, statin History of breast cancer: Continue home tamoxifen History of anemia: Hemoglobin at baseline. DVT prophylaxis: Lovenox Code status: Full code Quality Stroke Does the patient have a stroke diagnosis?: No VTE Prior VTE?: No VTE Risk Level:: Medical - moderate - high VTE Device Contraindication: Treatment Not Indicated VTE Drug Contraindication: N/A - Med Ordered
[2021-11-03] VITALS (9 sets, daily range): BP systolic 110–148; BP diastolic 57–83; PULSE 80–103; RESP 14–20; TEMP 37–37.6; O2SAT 94–100; BMI 21.9
[2021-11-03 00:29] LABS: Anion Gap 21 (12-20); Blood Urea Nitrogen 69 mg/dL (9-16); Calcium 8.6 mg/dL (8.4-10.2); Carbon Dioxide 17 mmol/L (22-29); Chloride 106 mmol/L (96-108); Creatinine Clr Calc Pharmacy 14.1; Estimated Glomerular Filt Rate 15; Glucose Random 160 mg/dL (60-115); Potassium 5.3 mmol/L (3.3-5.1); Sodium 139 mmol/L (135-145)
[2021-11-03] MEDS: 0.9 % Sodium Chloride 1,000 ML 75 ML IVCONT ×2 (01:14→18:45)
[2021-11-03] MEDS: Heparin Sodium,Porcine 5,000 UNIT/ML VIAL 5000 UNIT SUBCUT ×4 (01:14→22:55)
[2021-11-03] MEDS: 0.9 % Sodium Chloride Flush 3 ML SYRINGE IVFLUSH (01:15)
[2021-11-03 06:56] LABS: MANUAL DIFF FLAG NO
[2021-11-03 07:04] LABS: Basophils Percent Auto 0.2 % (0-2); Eosinophils Percent Auto 0.3 % (0-4); Hematocrit 26.4 % (37.0-47.0); Hemoglobin 8.5 g/dl (12.0-16.0); Imm Gran Abs Auto 0.07 X10*3/uL (0.00-0.03); Imm Gran Pct Auto 0.7 % (0.0-0.4); Lymphocytes Absolute Auto 1.2 X10*3/uL (1.2-4.9); Lymphocytes Percent Auto 11.2 % (20-40); Mean Corpuscular HGB Conc 32.2 g/dl (31.0-35.0); Mean Corpuscular Hemoglobin 29.7 pg (27.0-33.0); Mean Corpuscular Volume 92.3 fL (80.0-98.0); Monocytes Percent Auto 9.5 % (2-11); Neutrophils Absolute Auto 8.3 x10*3/uL (2.0-8.3); Neutrophils Percent Auto 78.1 % (45-73); Platelet Count 178 X10*3/uL (160-400); Red Blood Count 2.86 X10*6/uL (4.20-5.50); White Blood Count 10.6 X10*3/uL (4.8-10.8)
[2021-11-03 07:42] LABS: Anion Gap 18 (12-20); Blood Urea Nitrogen 63 mg/dL (9-16); Calcium 8.5 mg/dL (8.4-10.2); Carbon Dioxide 22 mmol/L (22-29); Chloride 106 mmol/L (96-108); Creatinine Clr Calc Pharmacy 16.7; Estimated Glomerular Filt Rate 18; Glucose Random 121 mg/dL (60-115); Potassium 5.2 mmol/L (3.3-5.1); Sodium 141 mmol/L (135-145)
[2021-11-03 07:50] LABS: Glucose, Whole Blood 92 mg/dL (60-115)
[2021-11-03] MEDS: Calcium Carbonate 750 MG TAB.CHEW 1500 MG PO ×2 (09:27→21:39)
[2021-11-03] MEDS: Cholecalciferol (Vitamin D3) 25 MCG TABLET 50 MCG PO (09:28)
[2021-11-03] MEDS: Aspirin Enteric Coated 81 MG TABLET.DR PO (09:29)
[2021-11-03] MEDS: Atorvastatin Calcium 10 MG TABLET PO (09:29)
[2021-11-03] MEDS: amLODIPine Besylate 5 MG TABLET PO (09:29)
[2021-11-03] MEDS: Tamoxifen Citrate 10 MG TABLET 20 MG PO (10:41)
--- NOTE | 2021-11-03 12:53 | HO.PM.IMPN ---
Subjective Subjective Date of Service: 11/03/21 Interval History: No abd pain No N/V Chronic dysuria No incontinence States she self-caths Review of Systems Review of Systems: Yes all other systems are reviewed and are negative Physical Exam Vital Signs: Vital Signs: Last Vital Signs Temp 97.7 F 11/02/21 22:44 Pulse 83 11/03/21 07:47 Resp 14 11/03/21 07:47 BP 142/70 H 11/03/21 07:47 Pulse Ox 100 11/03/21 07:47 BMI result Body Mass Index 21.9 Gen: in no acute distress HEENT: sclera anicteric, moist mucus membranes Neck: supple Lungs: clear to auscultation bilaterally Heart: regular rate and rhythm, no murmurs Abd: soft, non-tender, non-distended Ext: no edema Skin: warm/well-perfused Neuro: alert and oriented x3 Psych: appropriate affect Objective Data Active Medications Amlodipine Besylate (Amlodipine Besylate 5 Mg Tablet) 5 mg PO DAILY [facility]; Protocol Last Admin: 11/03/21 09:29 Dose: 5 mg Documented by: SAURAV Aspirin (Aspirin Enteric Coated 81 Mg Tablet.) 81 mg PO DAILY [facility] Last Admin: 11/03/21 09:29 Dose: 81 mg Documented by: SAURAV Atorvastatin Calcium (Atorvastatin Calcium 10 Mg Tablet) 10 mg PO DAILY [facility] Last Admin: 11/03/21 09:29 Dose: 10 mg Documented by: SAURAV Calcium Carbonate (Calcium Carbonate 750 Mg Tab.Chew) 1,500 mg PO BID [facility] Last Admin: 11/03/21 09:27 Dose: 1,500 mg Documented by: SAURAV Dextrose (Dextrose 50 % 25 Gm/50 Ml Syringe) 25 gm IVPUSH Q15M PRN; Protocol PRN Reason: per Hypoglycemia Standing Ord. Glucose (Glucose Gel 15 Gm Gel..Gram.) 15 gm PO Q15M PRN; Protocol PRN Reason: per Hypoglycemia Standing Ord. Heparin Sodium (Porcine) (Heparin Sodium,Porcine 5,000 Unit/Ml Vial) 5,000 unit SUBCUT Q8H [facility] Last Admin: 11/03/21 08:17 Dose: 5,000 unit Documented by: SAURAV Sodium Chloride (Ns) 1,000 mls @ 75 mls/hr IVCONT .[id number] [facility] Last Admin: 11/03/21 01:14 Dose: 75 mls/hr Documented by: KISHORE Ceftriaxone Sodium 1 gm/ (Sodium Chloride) 50 mls @ 100 mls/hr IV Q24H [facility] Insulin Human Lispro (Insulin Lispro 100 Unit/Ml 3 Ml Vial) 0 unit SUBCUT QIDACHS [facility]; Protocol Last Admin: 11/03/21 07:43 Dose: Not Given Documented by: SAURAV Non-Admin Reason: No Insulin Coverage Melatonin (Melatonin 3 Mg Tablet) 6 mg PO BEDTIME PRN PRN Reason: Insomnia Senna (Sennosides 8.6 Mg Tablet) 17.2 mg PO BEDTIME PRN PRN Reason: Constipation Senna/Docusate Sodium (Sennosides/Docusate Sodium Tablet) 1 tab PO BEDTIME [facility] Sodium Chloride (0.9 % Sodium Chloride Flush 3 Ml Syringe) 3 ml IVFLUSH QSHIFT [facility] Last Admin: 11/03/21 08:18 Dose: Not Given Documented by: SAURAV Non-Admin Reason: IV Running Tamoxifen Citrate (Tamoxifen Citrate 10 Mg Tablet) 20 mg PO DAILY [facility] Last Admin: 11/03/21 10:41 Dose: 20 mg Documented by: SAURAV Vitamin D (Cholecalciferol (Vitamin D3) 25 Mcg Tablet) 50 mcg PO DAILY [facility] Last Admin: 11/03/21 09:28 Dose: 50 mcg Documented by: SAURAV Labs CBC & Chem 7: 11/03/21 06:31 11/03/21 06:31 Labs: Laboratory Results - last 24 hr 11/02/21 11/02/21 11/02/21 19:30 19:30 19:56 MCV 91.0 MCH 29.1 MCHC 32.0 RDW 19.1 H Plt Count 169 MPV 10.5 Immature Gran % (Auto) 1.0 H Neut % (Auto) 83.9 H Lymph % (Auto) 6.2 L [place] % (Auto) 8.8 Eos % (Auto) 0.0 Baso % (Auto) 0.1 Lymph # (Auto) 0.7 L [place] # (Auto) 1.0 Eos # (Auto) 0.0 Baso # (Auto) 0.0 Abs Immat Gran (auto) 0.12 H Absolute Neuts (auto) 9.7 H Absolute Nucleated RBC 0.000 Nucleated RBC % (auto) 0.0 Anion Gap 21 H Estim Creat Clear Calc 12.8 Estimated GFR 13 POC Glucose Random Glucose 178 H Lactic Acid Calcium 9.0 Total Bilirubin 0.6 AST 36 H D ALT 31 Alkaline Phosphatase 90 Total Protein 7.6 Albumin 3.6 Urine Color YELLOW Urine Appearance TURBID Urine pH 7.5 Ur Specific [place] 1.020 Urine Protein 2+ H Urine Glucose (UA) NEG Urine Ketones 15 Urine Blood 3+ H Urine Nitrite NEG Ur Leukocyte Esterase 3+ H Urine RBC 30-49 H Urine WBC TNTC H Ur Squamous Epith Cells 1+ Urine Bacteria 4+ COVID-19 (TERE) COVID-19 Clin Com 11/02/21 11/02/21 11/03/21 20:58 21:14 00:03 MCV MCH MCHC RDW Plt Count MPV Immature Gran % (Auto) Neut % (Auto) Lymph % (Auto) [place] % (Auto) Eos % (Auto) Baso % (Auto) Lymph # (Auto) [place] # (Auto) Eos # (Auto) Baso # (Auto) Abs Immat Gran (auto) Absolute Neuts (auto) Absolute Nucleated RBC Nucleated RBC % (auto) Anion Gap 21 H Estim Creat Clear Calc 14.1 Estimated GFR 15 POC Glucose Random Glucose 160 H Lactic Acid 0.9 Calcium 8.6 Total Bilirubin AST ALT Alkaline Phosphatase Total Protein Albumin Urine Color Urine Appearance Urine pH Ur Specific [place] Urine Protein Urine Glucose (UA) Urine Ketones Urine Blood Urine Nitrite Ur Leukocyte Esterase Urine RBC Urine WBC Ur Squamous Epith Cells Urine Bacteria COVID-19 (TERE) Negative COVID-19 Clin Com See Note 11/03/21 11/03/21 11/03/21 06:31 06:31 07:37 MCV 92.3 MCH 29.7 MCHC 32.2 RDW 19.0 H Plt Count 178 MPV 11.0 Immature Gran % (Auto) 0.7 H Neut % (Auto) 78.1 H Lymph % (Auto) 11.2 L [place] % (Auto) 9.5 Eos % (Auto) 0.3 Baso % (Auto) 0.2 Lymph # (Auto) 1.2 [place] # (Auto) 1.0 Eos # (Auto) 0.0 Baso # (Auto) 0.0 Abs Immat Gran (auto) 0.07 H Absolute Neuts (auto) 8.3 Absolute Nucleated RBC 0.000 Nucleated RBC % (auto) 0.0 Anion Gap 18 Estim Creat Clear Calc 16.7 Estimated GFR 18 POC Glucose 92 Random Glucose 121 H Lactic Acid Calcium 8.5 Total Bilirubin AST ALT Alkaline Phosphatase Total Protein Albumin Urine Color Urine Appearance Urine pH Ur Specific [place] Urine Protein Urine Glucose (UA) Urine Ketones Urine Blood Urine Nitrite Ur Leukocyte Esterase Urine RBC Urine WBC Ur Squamous Epith Cells Urine Bacteria COVID-19 (TERE) COVID-19 Clin Com Microbiology Microbiology Results: Microbiology 11/02/21 20:11 Urine Culture - Preliminary Urine clean catch - Urine campbell top Culture too young to evaluate. Assessment and Plan (1) UTI (urinary tract infection): Status: Acute (2) CHIDI (acute kidney injury): Status: Acute Plan hosp d#2 81yo F c DM, HTN, HLD, prior DVT, vit D def, PRASHANT, PVD, MS, CKD4, hx breast CA, chronic anemia presenting after mech fall, admitted for CHIDI/UTI # CHIDI/CKD4 - continue IV fluids, SCr improving, avoid nephrotoxins, recheck BMP in AM, Nephro consult pending # hyperK - improving- give another dose SZC # UTI - ceftriax d#2, follow UCx # HTN - amlodipine # HLD - statin # anemia of chronic dz - Hb at baseline # DM2 - correction-dose lispro # hx breast CA - tamoxifen # VTE ppx - UFH Quality Stroke Does the patient have a stroke diagnosis?: No VTE Prior VTE?: No VTE Risk Level:: Medical - moderate - high VTE Device Contraindication: Treatment Not Indicated VTE Drug Contraindication: N/A - Med Ordered
--- NOTE | 2021-11-03 13:11 | MHC.CM.PN ---
met with pt in ed pt explains that she livesd alone her son helps her when needed her son will transport her hoime when dcd pt is vax x 2 pt does not expect to need servceis when dcd
[2021-11-03 13:26] LABS: Glucose, Whole Blood 117 mg/dL (60-115)
--- NOTE | 2021-11-03 14:02 | PHA.MEDREC ---
Pharmacy Consult ? Medication Reconciliation Pharmacy has completed the medication reconciliation.
[2021-11-03] MEDS: Sodium Zirconium Cyclosilicate 10 GM POWD.PACK PO (14:11)
[2021-11-03 18:25] LABS: Glucose, Whole Blood 134 mg/dL (60-115)
[2021-11-03] MEDS: Sennosides/Docusate Sodium TABLET 1 TAB PO (21:39)
[2021-11-03] MEDS: cefTRIAXone sodium 1 GM in 0.9 % Sodium Chloride 50 ML IV (21:40)
[2021-11-04] MEDS: 0.9 % Sodium Chloride 1,000 ML 75 ML IVCONT ×2 (06:17→22:11)
[2021-11-04 07:19] LABS: Anion Gap 14 (12-20); Blood Urea Nitrogen 45 mg/dL (9-16); Calcium 7.9 mg/dL (8.4-10.2); Carbon Dioxide 20 mmol/L (22-29); Chloride 107 mmol/L (96-108); Creatinine Clr Calc Pharmacy 25.2; Estimated Glomerular Filt Rate 29; Glucose Random 113 mg/dL (60-115); Potassium 4.4 mmol/L (3.3-5.1); Sodium 137 mmol/L (135-145)
[2021-11-04 07:43] VITALS: BP 139/67; PULSE 78; RESP 18; TEMP 36.7; O2SAT 98
[2021-11-04 08:02] LABS: Glucose, Whole Blood 111 mg/dL (60-115)
[2021-11-04] MEDS: Tamoxifen Citrate 10 MG TABLET 20 MG PO (10:21)
[2021-11-04] MEDS: Cholecalciferol (Vitamin D3) 25 MCG TABLET 50 MCG PO (10:22)
[2021-11-04] MEDS: Calcium Carbonate 750 MG TAB.CHEW 1500 MG PO ×2 (10:22→22:11)
[2021-11-04] MEDS: Atorvastatin Calcium 10 MG TABLET PO (10:22)
[2021-11-04] MEDS: Aspirin Enteric Coated 81 MG TABLET.DR PO (10:22)
[2021-11-04] MEDS: Heparin Sodium,Porcine 5,000 UNIT/ML VIAL 5000 UNIT SUBCUT ×2 (10:22→18:00)
[2021-11-04] MEDS: amLODIPine Besylate 5 MG TABLET PO (10:22)
--- NOTE | 2021-11-04 11:15 | PM.CNNEP ---
History of Present Illness Reason for Consult Consult date: 11/04/21 Reason for consult: CHIDI Chief Complaint Chief complaint: UTI/CHIDI History of Present Illness Narrative: 81-year-old female with a past medical history of CKD (BL S-Cr ~ 1.5-1.8 mg/dL), hypertension, hyperlipidemia, diabetes, history of DVT, vitamin-D deficiency, renal artery stenosis, peripheral vascular disease, multiple sclerosis-resultant wheelchair-bound, breast cancer, and anemia who presented to [facility] on 11/02 with CC of mechanical fall. Her son is present at time of my evaluation and states she may have been down for ~ 3 hours. Patient reports that she fell down from her wheelchair twice; landed on the knee; denies any head strike or loss of consciousness. Complained of pain in the knees briefly. Mentioned that she has urinary discomfort but which has been chronic. Followed by nephrology as outpatient and receives ANDRAE bi-weekly. Denies any nausea vomiting or diarrhea. Denies any chest pain or palpitations. Denies any lightheadedness dizziness. In the ED her inital lab assessment showed bun/Cr = 71/3.34 UA concerning for uti and she was subsequently started on iv abx. Given ceftriaxone. x-rays were negative for any fractures; Review of all other systems is negative except mentioned above Review of Systems Review of Systems Yes all other systems are reviewed and are negative PMFSH Past Medical History Medical History Anemia Breast cancer Chronic kidney disease Diabetes Diabetic nephropathy DVT (deep venous thrombosis) Hypercholesterolemia Hypertension Multiple sclerosis Peripheral vascular disease Poor historian Renal artery stenosis Vitamin D deficiency Family History Family History Father Hypertension Chronic kidney failure Mother Hypertension Diabetes Brother CKD (chronic kidney disease) Brother Gunshot wound Sister Throat cancer Son No problems noted. Daughter No problems noted. Surgical History Surgical History H/O colonoscopy H/O total mastectomy of left breast History of breast lump/mass excision History of intravascular stent placement Social History Social History Household Members: None Housing: House Are you a primary healthcare technician to a significant other at home: No Do you presently have visiting nurse or other home services: No Alcohol intake: never Patient Tobacco Use Status: Former Tobacco user Quit Date: as teenager Tobacco use type: Cigarette e-Cigarette/Vaping Use: Never Used Second Hand Smoke Exposure: No Advance Directives Date on File: 06/06/15 service: No Current occupational status: retired Meds Allergies Allergy/AdvReac Type Severity Reaction Status Date / Time No Known Allergies Allergy Verified 10/17/21 15:27 Active Medications: Current Medications Amlodipine Besylate (Amlodipine Besylate 5 Mg Tablet) 5 mg PO DAILY [facility]; Protocol Last Admin: 11/04/21 10:22 Dose: 5 mg Documented by: Aspirin (Aspirin Enteric Coated 81 Mg Tablet.Dr) 81 mg PO DAILY [facility] Last Admin: 11/04/21 10:22 Dose: 81 mg Documented by: Atorvastatin Calcium (Atorvastatin Calcium 10 Mg Tablet) 10 mg PO DAILY [facility] Last Admin: 11/04/21 10: Dose: 10 mg Documented by: Calcium Carbonate (Calcium Carbonate 750 Mg Tab.Chew) 1,500 mg PO BID [facility] Last Admin: 11/04/21 10:22 Dose: 1,500 mg Documented by: Dextrose (Dextrose 50 % 25 Gm/50 Ml Syringe) 25 gm IVPUSH Q15M PRN; Protocol PRN Reason: per Hypoglycemia Standing Ord. Glucose (Glucose Gel 15 Gm Gel..Gram.) 15 gm PO Q15M PRN; Protocol PRN Reason: per Hypoglycemia Standing Ord. Heparin Sodium (Porcine) (Heparin Sodium,Porcine 5,000 Unit/Ml Vial) 5,000 unit SUBCUT Q8H [facility] Last Admin: 11/04/21 10:22 Dose: 5,000 unit Documented by: Sodium Chloride (Ns) 1,000 mls @ 75 mls/hr IVCONT .[id number] [facility] Last Admin: 11/04/21 06:17 Dose: 75 mls/hr Documented by: Ceftriaxone Sodium 1 gm/ (Sodium Chloride) 50 mls @ 100 mls/hr IV Q24H [facility] Last Infusion: 11/03/21 23:01 Dose: Infused Documented by: Insulin Human Lispro (Insulin Lispro 100 Unit/Ml 3 Ml Vial) 0 unit SUBCUT QIDACHS [facility]; Protocol Last Admin: 11/04/21 07:37 Dose: Not Given Documented by: Melatonin (Melatonin 3 Mg Tablet) 6 mg PO BEDTIME PRN PRN Reason: Insomnia Senna (Sennosides 8.6 Mg Tablet) 17.2 mg PO BEDTIME PRN PRN Reason: Constipation Senna/Docusate Sodium (Sennosides/Docusate Sodium Tablet) 1 tab PO BEDTIME [facility] Last Admin: 11/03/21 21:39 Dose: 1 tab Documented by: Sodium Chloride (0.9 % Sodium Chloride Flush 3 Ml Syringe) 3 ml IVFLUSH QSHIFT [facility] Last Admin: 11/04/21 10:23 Dose: Not Given Documented by: Tamoxifen Citrate (Tamoxifen Citrate 10 Mg Tablet) 20 mg PO DAILY [facility] Last Admin: 11/04/21 10:21 Dose: 20 mg Documented by: Vitamin D (Cholecalciferol (Vitamin D3) 25 Mcg Tablet) 50 mcg PO DAILY [facility] Last Admin: 11/04/21 10:22 Dose: 50 mcg Documented by: Home Medications Medication Instructions Recorded Confirmed Last Taken Type aspirin 81 mg tablet,delayed 81 mg PO DAILY 08/08/20 11/03/21 11/02/21 History release (Adult Aspirin Regimen) sennosides 8.6 mg-docusate sodium 1 tab-cap PO BEDTIME 08/08/20 11/03/21 11/01/21 History 50 mg capsule (Senna Plus) Physical Exam Vital Signs: Last Vital Signs Temp 98.1 F 11/04/21 07:43 Pulse 78 11/04/21 07:43 Resp 18 11/04/21 07:43 BP 139/67 11/04/21 07:43 Pulse Ox 98 11/04/21 07:43 BMI result Body Mass Index 21.9 Const General: cooperative, comfortable and no acute distress HEENT Head: Yes normocephalic and Yes atraumatic Neck Neck: Yes no JVD Resp Effort & Inspection: normal respiratory effort Auscultation: clear to auscultation bilaterally Cardio Jugular venous distension: no JVD Rate: regular rate Rhythm: regular rhythm GI Auscultation: normal bowel sounds Neuro General: moves all extremities Extrem General: Yes no clubbing, cyanosis or edema Results Lab Results Result Diagrams: 11/03/21 06:31 11/04/21 06:32 Lab results: Chemistry 11/02/21 11/03/21 11/03/21 19:30 00:03 06:31 Sodium 137 139 141 Potassium 5.7 H 5.3 H 5.2 H Carbon Dioxide 19 L 17 L 22 BUN 71 H D 69 H 63 H Creatinine 3.34 H 3.04 H 2.55 H Calcium 9.0 8.6 8.5 11/04/21 06:32 Sodium 137 Potassium 4.4 Carbon Dioxide 20 L BUN 45 H Creatinine 1.70 H Calcium 7.9 L D Hematology 11/02/21 11/03/21 19:30 06:31 WBC 11.6 H 10.6 Hgb 8.7 L 8.5 L Plt Count 169 178 Urinalysis 11/02/21 19:56 Urine Color YELLOW Urine Appearance TURBID Urine pH 7.5 Ur Specific Fleming 1.020 Urine Protein 2+ H Urine Glucose (UA) NEG Urine Ketones 15 Urine Blood 3+ H Urine Nitrite NEG Ur Leukocyte Esterase 3+ H Urine RBC 30-49 H Urine WBC TNTC H Ur Squamous Epith Cells 1+ Assessment and Plan (1) CHIDI (acute kidney injury): Status: Acute (2) Anemia: Qualifiers: Anemia type: due to chronic kidney disease Chronic kidney disease stage: stage 3 (moderate) Chronic kidney disease stage 3 subtype: stage 3b (GFR 30-44) Qualified Code(s): N18.32 - Chronic kidney disease, stage 3b; D63.1 - Anemia in chronic kidney disease Status: Acute Plan 81-year-old female with a past medical history of CKD (BL S-Cr ~ 1.5-1.8 mg/dL), hypertension, hyperlipidemia, diabetes, history of DVT, vitamin-D deficiency, renal artery stenosis, peripheral vascular disease, multiple sclerosis-resultant wheelchair-bound, breast cancer, and anemia who presented to [facility] on 11/02 with CC of mechanical fall. Her son is present at time of my evaluation and states she may have been down for ~ 3 hours. In the ED her initial lab assessment showed bun/Cr = 71/3.34 UA concerning for uti and she was subsequently started on iv abx. Given ceftriaxone. Plan: #) CHIDI on CKD IIIb/IV Patient presents with noted CHIDI in setting of advanced CKD, and renal senescence. She denies using nsaids, or tylenol at home for pain. No contrast exposure Noted to have mechanical fall with ~ 3 hour downtime. UA with noted blood/rbc's She also presents with noted uti. Primary team treating appropriately. Suggest: Add ck to rule out rhabdomyolysis. SHe would benefit from gentle IVF hydration with NS or LR x 1 liter. Monitor uop renal panel daily noted anemia in setting of CKD. we can check iron panel COntinue ANDRAE per outpatient prescription. #) Hyperkalemia - low K (renal diet), NS IV will help with distal Na delivery in setting of uti and volume depletion. Noted metabolic acidosis in setting of chidi also contributing to hyperkalemia. Isotonic IVF support will help to correct. lokelma 10G prn K>5.0 Procedures Date of Service Date of Service: 11/04/21
--- NOTE | 2021-11-04 11:26 | P.PNIM_ITS ---
Subjective Subjective Date of Service: 11/04/21 Interval History: No abd pain Dysuria improved No fever Review of Systems Review of Systems: Yes all other systems are reviewed and are negative Physical Exam Vital Signs: Vital Signs: Last Vital Signs Temp 98.1 F 11/04/21 07:43 Pulse 78 11/04/21 07:43 Resp 18 11/04/21 07:43 BP 139/67 11/04/21 07:43 Pulse Ox 98 11/04/21 07:43 BMI result Body Mass Index 21.9 Gen: in no acute distress HEENT: sclera anicteric, moist mucus membranes Neck: supple Lungs: clear to auscultation bilaterally Heart: regular rate and rhythm, no murmurs Abd: soft, non-tender, non-distended Ext: no edema Skin: warm/well-perfused Neuro: alert and oriented x3 Psych: appropriate affect Objective Data Active Medications Amlodipine Besylate (Amlodipine Besylate 5 Mg Tablet) 5 mg PO DAILY [facility]; Protocol Last Admin: 11/04/21 10:22 Dose: 5 mg Documented by: LAURENCE Aspirin (Aspirin Enteric Coated 81 Mg Tablet.Dr) 81 mg PO DAILY [facility] Last Admin: 11/04/21 10:22 Dose: 81 mg Documented by: LAURENCE Atorvastatin Calcium (Atorvastatin Calcium 10 Mg Tablet) 10 mg PO DAILY [facility] Last Admin: 11/04/21 10:22 Dose: 10 mg Documented by: LAURENCE Calcium Carbonate (Calcium Carbonate 750 Mg Tab.Chew) 1,500 mg PO BID [facility] Last Admin: 11/04/21 10:22 Dose: 1,500 mg Documented by: LAURENCE Dextrose (Dextrose 50 % 25 Gm/50 Ml Syringe) 25 gm IVPUSH Q15M PRN; Protocol PRN Reason: per Hypoglycemia Standing Ord. Glucose (Glucose Gel 15 Gm Gel..Gram.) 15 gm PO Q15M PRN; Protocol PRN Reason: per Hypoglycemia Standing Ord. Heparin Sodium (Porcine) (Heparin Sodium,Porcine 5,000 Unit/Ml Vial) 5,000 unit SUBCUT Q8H [facility] Last Admin: 11/04/21 10:22 Dose: 5,000 unit Documented by: LAURENCE Sodium Chloride (Ns) 1,000 mls @ 75 mls/hr IVCONT .[id number] [facility] Last Admin: 11/04/21 06:17 Dose: 75 mls/hr Documented by: KRISTEL Ceftriaxone Sodium 1 gm/ (Sodium Chloride) 50 mls @ 100 mls/hr IV Q24H [facility] Last Infusion: 11/03/21 23:01 Dose: 100 mls/hr Documented by: KRISTEL Insulin Human Lispro (Insulin Lispro 100 Unit/Ml 3 Ml Vial) 0 unit SUBCUT QIDACHS [facility]; Protocol Last Admin: 11/04/21 07:37 Dose: Not Given Documented by: LAURENCE Non-Admin Reason: IV Running Melatonin (Melatonin 3 Mg Tablet) 6 mg PO BEDTIME PRN PRN Reason: Insomnia Senna (Sennosides 8.6 Mg Tablet) 17.2 mg PO BEDTIME PRN PRN Reason: Constipation Senna/Docusate Sodium (Sennosides/Docusate Sodium Tablet) 1 tab PO BEDTIME [facility] Last Admin: 11/03/21 21:39 Dose: 1 tab Documented by: RANJAN Sodium Chloride (0.9 % Sodium Chloride Flush 3 Ml Syringe) 3 ml IVFLUSH QSHIFT [facility] Last Admin: 11/04/21 10:23 Dose: Not Given Documented by: LAURENCE Non-Admin Reason: IV Running Tamoxifen Citrate (Tamoxifen Citrate 10 Mg Tablet) 20 mg PO DAILY [facility] Last Admin: 11/04/21 10:21 Dose: 20 mg Documented by: LAURENCE Vitamin D (Cholecalciferol (Vitamin D3) 25 Mcg Tablet) 50 mcg PO DAILY [facility] Last Admin: 11/04/21 10:22 Dose: 50 mcg Documented by: LAURENCE Labs CBC & Chem 7: 11/03/21 06:31 11/04/21 06:32 Labs: Laboratory Results - last 24 hr 11/03/21 11/03/21 11/04/21 13:12 18:04 06:32 Anion Gap 14 Estim Creat Clear Calc 25.2 Estimated GFR 29 POC Glucose 117 H 134 H Random Glucose 113 Calcium 7.9 L D 11/04/21 07:42 Anion Gap Estim Creat Clear Calc Estimated GFR POC Glucose 111 Random Glucose Calcium Microbiology Microbiology Results: Microbiology 11/02/21 20:11 Urine Culture - Final Urine clean catch - Urine campbell top 11/02/21 22:20 Blood Culture - Preliminary Blood - Venous No growth after 24 hours. 11/02/21 22:20 Blood Culture - Preliminary Blood - Venous No growth after 24 hours. Assessment and Plan (1) UTI (urinary tract infection): Status: Acute (2) CHIDI (acute kidney injury): Status: Acute Plan hosp d#3 81yo F c DM, HTN, HLD, prior DVT, vit D def, PRASHANT, PVD, MS, CKD4, hx breast CA, chronic anemia [facility], admitted for CHIDI/UTI # CHIDI/CKD4 - SCr now close to baseline, Nephrology consulted # hyperK - resolved p SZC # UTI - ceftriax d#3, follow UCx # HTN - amlodipine # HLD - statin # anemia of chronic dz - Hb at baseline # DM2 - correction-dose lispro # hx breast CA - tamoxifen # fall - PT consult # VTE ppx - UFH In my clinical judgment, the patient requires continued hospitalization for the following reasons: IV ABX, dispo planning Quality Stroke Does the patient have a stroke diagnosis?: No VTE Prior VTE?: No VTE Risk Level:: Medical - moderate - high VTE Device Contraindication: Treatment Not Indicated VTE Drug Contraindication: N/A - Med Ordered
[2021-11-04 11:54] LABS: Iron 56 mcg/dL (30-160); Percent Iron Saturation 50 % (15-50); Total Iron Binding Capacity 112 mcg/dL (228-428); Unsaturated Iron Binding 56 ug/dL
[2021-11-04 12:10] LABS: Glucose, Whole Blood 145 mg/dL (60-115)
[2021-11-04 12:52] LABS: Ferritin 2795 ng/mL (10-250)
[2021-11-04 16:00] VITALS: BP 118/80; PULSE 103; RESP 18; TEMP 37.3; O2SAT 95
[2021-11-04 17:48] LABS: Glucose, Whole Blood 159 mg/dL (60-115)
[2021-11-04] MEDS: Insulin Lispro 100 UNIT/ML 3 ML VIAL SUBCUT (17:59)
[2021-11-04 21:52] LABS: Glucose, Whole Blood 95 mg/dL (60-115)
[2021-11-04] MEDS: Sennosides/Docusate Sodium TABLET 1 TAB PO (22:12)
[2021-11-04] MEDS: cefTRIAXone sodium 1 GM in 0.9 % Sodium Chloride 50 ML IV (22:17)
[2021-11-04 23:46] VITALS: BP 140/66; PULSE 84; RESP 16; TEMP 37.1; O2SAT 100
[2021-11-05] MEDS: Heparin Sodium,Porcine 5,000 UNIT/ML VIAL 5000 UNIT SUBCUT ×3 (00:50→15:30)
[2021-11-05 07:03] LABS: Anion Gap 12 (12-20); Blood Urea Nitrogen 37 mg/dL (9-16); Calcium 8.3 mg/dL (8.4-10.2); Carbon Dioxide 22 mmol/L (22-29); Chloride 108 mmol/L (96-108); Creatinine Clr Calc Pharmacy 26.6; Estimated Glomerular Filt Rate 31; Glucose Random 103 mg/dL (60-115); Potassium 4.1 mmol/L (3.3-5.1); Sodium 138 mmol/L (135-145)
[2021-11-05 07:51] VITALS: BP 137/71; PULSE 76; RESP 18; TEMP 36.5; O2SAT 100
[2021-11-05 07:58] LABS: Glucose, Whole Blood 99 mg/dL (60-115)
[2021-11-05] MEDS: Calcium Carbonate 750 MG TAB.CHEW 1500 MG PO ×2 (08:54→21:09)
[2021-11-05] MEDS: Cholecalciferol (Vitamin D3) 25 MCG TABLET 50 MCG PO (08:55)
[2021-11-05] MEDS: Atorvastatin Calcium 10 MG TABLET PO (08:55)
[2021-11-05] MEDS: Aspirin Enteric Coated 81 MG TABLET.DR PO (08:55)
[2021-11-05] MEDS: amLODIPine Besylate 5 MG TABLET PO (08:55)
[2021-11-05] MEDS: Tamoxifen Citrate 10 MG TABLET 20 MG PO (09:01)
--- NOTE | 2021-11-05 09:57 | MHC.CDI.CONC ---
CDI Concurrent Query Documentation Clarification: PHYSICIAN'S DOCUMENTATION REQUEST Date of Query: 11/05/21 0957 Patient Name: Shukri Adhikari Admit Date: 11/02/21 Dear Doctor, A review of the medical record indicates additional documentation may be indicated. Please review below and update the documentation accordingly. Clinical Indicators: Risk Factors/Clinical Indicators/Treatments Wound care notes 11/04- Pressure injury Stage II right buttock. Foam dressing applied. Based on the above, could you please provide, in the Progress Notes, further information regarding the ulcer/wound: If a pressure ulcer, please also include the stage* of the ulcer/injury/wound: Stage 1 - Skin intact, non-blanchable redness Stage 2 - Partial thickness loss of dermis, includes intact or open blister Stage 3 - Full thickness tissue not including bone, tendon, or muscle Stage 4 - Full thickness tissue loss, including exposed bones, tendon, or muscle Unstageable - Full thickness tissue loss in which the base of the ulcer is covered by slough (yellow, lockett, campbell, green or brown) and/or eschar (lockett, brown, or black) in the wound bed. Other Unable to determine *Source: National Pressure Ulcer Advisory Panel (NPUAP) Use of terms such as suspected, likely, concern for, or probable (associated with a specific diagnosis that is being evaluated, monitored, or treated as if it exists) are acceptable and can be coded in the inpatient setting, when documented at the time of discharge. Thank you, Kristal Hernández [facility], CDIS Extension: [phone] Please use your independent medical judgment in providing your response. THIS QUERY IS PART OF THE PERMANENT MEDICAL RECORD Provider Response: Other Other Diagnosis: Pressure injury Stage II right buttock.
[2021-11-05 11:42] LABS: Glucose, Whole Blood 214 mg/dL (60-115)
--- NOTE | 2021-11-05 12:00 | PM.PNNEP ---
Subjective Subjective Date of Service: 11/05/21 Interval history: Events noted. All recent data reviewed Physical Exam Vital Signs: Vital Signs: Last Vital Signs Temp 97.7 F 11/05/21 07:51 Pulse 76 11/05/21 07:51 Resp 18 11/05/21 07:51 BP 137/71 11/05/21 07:51 Pulse Ox 100 11/05/21 07:51 BMI result Body Mass Index 21.9 Const: General: no acute distress Eyes: EOM: EOMs intact bilaterally Neck: Neck: Yes supple Resp: Auscultation: diminished lung sounds Cardio: Rate: regular rate GI: Palpation (GI): Soft to palpation Neuro: General: moves all extremities Objective Data Labs CBC & Chem 7: 11/03/21 06:31 11/05/21 06:05 Labs: Laboratory Results - last 24 hr 11/04/21 11/04/21 11/04/21 06:32 11:50 16:39 Sodium Potassium Chloride Carbon Dioxide Anion Gap BUN Creatinine Estim Creat Clear Calc Estimated GFR POC Glucose 145 H 159 H Random Glucose Calcium Ferritin 2795 H Total Creatine Kinase 11/04/21 11/05/21 11/05/21 21:05 06:05 07:51 Sodium 138 Potassium 4.1 Chloride 108 Carbon Dioxide 22 Anion Gap 12 BUN 37 H Creatinine 1.61 H Estim Creat Clear Calc 26.6 Estimated GFR 31 POC Glucose 95 99 Random Glucose 103 Calcium 8.3 L Ferritin Total Creatine Kinase 515 H D 11/05/21 11:13 Sodium Potassium Chloride Carbon Dioxide Anion Gap BUN Creatinine Estim Creat Clear Calc Estimated GFR POC Glucose 214 H Random Glucose Calcium Ferritin Total Creatine Kinase Microbiology Microbiology Results: Microbiology 11/02/21 22:20 Blood - Venous Blood Culture - Preliminary No growth after 48 hours. 11/02/21 22:20 Blood - Venous Blood Culture - Preliminary No growth after 48 hours. 11/02/21 20:11 Urine clean catch - Urine campbell top Urine Culture - Final Procedures Date of Service Date of Service: 11/05/21 Assessment & Plan Assessment and plan (1) CHIDI (acute kidney injury): Status: Acute Assessment and Plan: CHIDI on CKD IIIb/IV due to tubular injury Renal functions improved with supportive care Lokelma PRN. C/W rest of current management Labs AM. Shall closely follow up Time Spent With Patient Time: Total time spent is greater than 50% in coordination of care (as documented) at patient's floor/unit and/or counseling patient: Progress Note: Quality Stroke Does the patient have a stroke diagnosis?: No
[2021-11-05] MEDS: Insulin Lispro 100 UNIT/ML 3 ML VIAL SUBCUT ×3 (12:51→21:09)
--- NOTE | 2021-11-05 13:13 | P.PNIM_ITS ---
Subjective Subjective Date of Service: 11/05/21 Interval History: SCr improved CPK improved Dysuria resolved UCx skin hai/contaminant PT recommends STr Review of Systems Review of Systems: Yes all other systems are reviewed and are negative Physical Exam Vital Signs: Vital Signs: Last Vital Signs Temp 97.7 F 11/05/21 07:51 Pulse 76 11/05/21 07:51 Resp 18 11/05/21 07:51 BP 137/71 11/05/21 07:51 Pulse Ox 100 11/05/21 07:51 BMI result Body Mass Index 21.9 Gen: in no acute distress HEENT: sclera anicteric, moist mucus membranes Neck: supple Lungs: clear to auscultation bilaterally Heart: regular rate and rhythm, no murmurs Abd: soft, non-tender, non-distended Ext: no edema Skin: warm/well-perfused Neuro: alert and oriented x3 Psych: appropriate affect Objective Data Active Medications Amlodipine Besylate (Amlodipine Besylate 5 Mg Tablet) 5 mg PO DAILY [facility]; Protocol Last Admin: 11/05/21 08:55 Dose: 5 mg Documented by: MARY JO Aspirin (Aspirin Enteric Coated 81 Mg Tablet.Dr) 81 mg PO DAILY [facility] Last Admin: 11/05/21 08:55 Dose: 81 mg Documented by: MARY JO Atorvastatin Calcium (Atorvastatin Calcium 10 Mg Tablet) 10 mg PO DAILY [facility] Last Admin: 11/05/21 08:55 Dose: 10 mg Documented by: MARY JO Calcium Carbonate (Calcium Carbonate 750 Mg Tab.Chew) 1,500 mg PO BID [facility] Last Admin: 11/05/21 08:54 Dose: 1,500 mg Documented by: MARY JO Dextrose (Dextrose 50 % 25 Gm/50 Ml Syringe) 25 gm IVPUSH Q15M PRN; Protocol PRN Reason: per Hypoglycemia Standing Ord. Glucose (Glucose Gel 15 Gm Gel..Gram.) 15 gm PO Q15M PRN; Protocol PRN Reason: per Hypoglycemia Standing Ord. Heparin Sodium (Porcine) (Heparin Sodium,Porcine 5,000 Unit/Ml Vial) 5,000 unit SUBCUT Q8H [facility] Last Admin: 11/05/21 08:54 Dose: 5,000 unit Documented by: MARY JO Sodium Chloride (Ns) 1,000 mls @ 75 mls/hr IVCONT .[id number] [facility] Last Admin: 11/05/21 05:26 Dose: Not Given Documented by: ALEK Non-Admin Reason: IV Running Ceftriaxone Sodium 1 gm/ (Sodium Chloride) 50 mls @ 100 mls/hr IV Q24H [facility] Last Infusion: 11/04/21 22:50 Dose: 0 mls/hr Documented by: LIDIA Insulin Human Lispro (Insulin Lispro 100 Unit/Ml 3 Ml Vial) 0 unit SUBCUT QIDACHS [facility]; Protocol Last Admin: 11/05/21 12:51 Dose: 4 unit Documented by: MARY JO Melatonin (Melatonin 3 Mg Tablet) 6 mg PO BEDTIME PRN PRN Reason: Insomnia Senna (Sennosides 8.6 Mg Tablet) 17.2 mg PO BEDTIME PRN PRN Reason: Constipation Senna/Docusate Sodium (Sennosides/Docusate Sodium Tablet) 1 tab PO BEDTIME [facility] Last Admin: 11/04/21 22:12 Dose: 1 tab Documented by: LIDIA Sodium Chloride (0.9 % Sodium Chloride Flush 3 Ml Syringe) 3 ml IVFLUSH QSHIFT [facility] Last Admin: 11/05/21 09:01 Dose: Not Given Documented by: MARY JO Non-Admin Reason: IV Running Tamoxifen Citrate (Tamoxifen Citrate 10 Mg Tablet) 20 mg PO DAILY [facility] Last Admin: 11/05/21 09:01 Dose: 20 mg Documented by: MARY JO Vitamin D (Cholecalciferol (Vitamin D3) 25 Mcg Tablet) 50 mcg PO DAILY [facility] Last Admin: 11/05/21 08:55 Dose: 50 mcg Documented by: MARY JO Labs CBC & Chem 7: 11/03/21 06:31 11/05/21 06:05 Labs: Laboratory Results - last 24 hr 11/04/21 11/04/21 11/05/21 16:39 21:05 06:05 Anion Gap 12 Estim Creat Clear Calc 26.6 Estimated GFR 31 POC Glucose 159 H 95 Random Glucose 103 Calcium 8.3 L Total Creatine Kinase 515 H D 11/05/21 11/05/21 07:51 11:13 Anion Gap Estim Creat Clear Calc Estimated GFR POC Glucose 99 214 H Random Glucose Calcium Total Creatine Kinase Microbiology Microbiology Results: Microbiology 11/02/21 22:20 Blood Culture - Preliminary Blood - Venous No growth after 48 hours. 11/02/21 22:20 Blood Culture - Preliminary Blood - Venous No growth after 48 hours. 11/02/21 20:11 Urine Culture - Final Urine clean catch - Urine campbell top Assessment and Plan (1) UTI (urinary tract infection): Status: Acute (2) CHIDI (acute kidney injury): Status: Acute Plan hosp d#4 81yo F c DM, HTN, HLD, prior DVT, vit D def, PRASHANT, PVD, MS, CKD4, hx breast CA, chronic anemia presenting after [facility] fall, admitted for CHIDI/UTI # CHIDI/CKD4 - SCr improving with IV fluid hydration, Nephro following # mild rhabdomyolysis - also improving with IV fluid hydration, likely due to fall/inability to get up # hyperK - resolved p SZC # UTI - ceftriax d#09/27, complete with cefuroxime upon d/c # HTN - amlodipine # HLD - statin # anemia of chronic dz - Hb at baseline # DM2 - correction-dose lispro # hx breast CA - tamoxifen # fall - PT consulted, recommend STR # VTE ppx - UFH In my clinical judgment, the patient requires continued hospitalization for the following reasons: IV ABX, dispo planning Quality Stroke Does the patient have a stroke diagnosis?: No VTE Prior VTE?: No VTE Risk Level:: Medical - moderate - high VTE Device Contraindication: Treatment Not Indicated VTE Drug Contraindication: N/A - Med Ordered
--- NOTE | 2021-11-05 13:36 | MHC.CM.PN ---
EMR REVIEWED, PT REMAINS ON IV FLUIDS AND IV ABX, PER HOSPITALIST PT IMPROVING AND ANTIC PT WILL BE CLEARED FOR D/C BY TOMORROW, REFERRAL FOR NEW VNA PLACED TO [facility], [facility], ANTIC SON WILL TRANSPORT PT HOME.
[2021-11-05 14:46] VITALS: BMI 21.9
[2021-11-05] MEDS: 0.9 % Sodium Chloride 1,000 ML 75 ML IVCONT (15:30)
[2021-11-05] MEDS: 0.9 % Sodium Chloride Flush 3 ML SYRINGE IVFLUSH (15:31)
[2021-11-05 15:36] VITALS: BP 119/58; PULSE 82; RESP 18; TEMP 36.6; O2SAT 100
--- NOTE | 2021-11-05 15:54 | MHC.CM.PN ---
CM RETURNED CALL FROM PT'S UNIQUE [phone] TO DISCUSS DISPO, PT IS RECOMMENDING STR, UNIQUE BELIEVES THAT PT WILL BE NERVOUS ABOUT IT THE OTHER TIME SHE WENT TO STR IT WAS [facility] AND SHE WAS STUCK THERE FOR MONTHS, UNIQUE REPORTS HE HAS TOURED [facility] FOR FUTURE NEED OF LTC W/PTS [place] AND THAT [facility] BE HIS PREFERRED SNF, UNIQUE REPORTS SECOND CHOICE WOULD BE [facility] HE HAS HEARD GOOD THINGS ABOUT IT, REFERRALS HAVE BEEN PLACED TO BOTH, UNIQUE AWARE WE ANTIC PT MAY BE READY FOR D/C TOMORROW AND WILL FOLLOW UP THEN.
[2021-11-05 16:18] LABS: Glucose, Whole Blood 156 mg/dL (60-115)
[2021-11-05 20:26] LABS: Glucose, Whole Blood 183 mg/dL (60-115)
[2021-11-05] MEDS: Sennosides/Docusate Sodium TABLET 1 TAB PO (21:09)
[2021-11-05] MEDS: cefTRIAXone sodium 1 GM in 0.9 % Sodium Chloride 50 ML IV (21:10)
[2021-11-05 23:50] VITALS: BP 155/68; PULSE 77; RESP 18; TEMP 37; O2SAT 100
[2021-11-06] MEDS: Heparin Sodium,Porcine 5,000 UNIT/ML VIAL 5000 UNIT SUBCUT ×2 (00:16→10:22)
[2021-11-06] MEDS: 0.9 % Sodium Chloride 1,000 ML 75 ML IVCONT (05:38)
[2021-11-06 06:58] LABS: Anion Gap 11 (12-20); Blood Urea Nitrogen 31 mg/dL (9-16); Calcium 8.7 mg/dL (8.4-10.2); Carbon Dioxide 24 mmol/L (22-29); Chloride 108 mmol/L (96-108); Creatinine Clr Calc Pharmacy 29.9; Estimated Glomerular Filt Rate 35; Glucose Random 134 mg/dL (60-115); Sodium 139 mmol/L (135-145)
[2021-11-06 07:35] VITALS: BP 150/71; PULSE 88; RESP 16; TEMP 37.2; O2SAT 99
[2021-11-06 07:41] LABS: Glucose, Whole Blood 128 mg/dL (60-115)
[2021-11-06] MEDS: Tamoxifen Citrate 10 MG TABLET 20 MG PO (10:21)
[2021-11-06] MEDS: Calcium Carbonate 750 MG TAB.CHEW 1500 MG PO (10:21)
[2021-11-06] MEDS: Cholecalciferol (Vitamin D3) 25 MCG TABLET 50 MCG PO (10:22)
[2021-11-06] MEDS: amLODIPine Besylate 5 MG TABLET PO (10:22)
[2021-11-06] MEDS: 0.9 % Sodium Chloride Flush 3 ML SYRINGE IVFLUSH (10:23)
[2021-11-06] MEDS: Aspirin Enteric Coated 81 MG TABLET.DR PO (10:23)
[2021-11-06] MEDS: Atorvastatin Calcium 10 MG TABLET PO (10:23)
--- NOTE | 2021-11-06 10:58 | PM.PNNEP ---
Subjective Subjective Date of Service: 11/06/21 Interval history: Events noted. All recent data reviewed Physical Exam Vital Signs: Vital Signs: Last Vital Signs Temp 98.9 F 11/06/21 07:35 Pulse 88 11/06/21 07:35 Resp 16 11/06/21 07:35 BP 150/71 H 11/06/21 07:35 Pulse Ox 99 11/06/21 07:35 BMI result Body Mass Index 21.9 Const: General: no acute distress Eyes: EOM: EOMs intact bilaterally Neck: Neck: Yes supple Resp: Auscultation: diminished lung sounds Cardio: Rate: regular rate GI: Palpation (GI): Soft to palpation Objective Data Labs CBC & Chem 7: 11/03/21 06:31 11/06/21 06:21 Labs: Laboratory Results - last 24 hr 11/05/21 11/05/21 11/05/21 11:13 15:38 19:46 Sodium Potassium Chloride Carbon Dioxide Anion Gap BUN Creatinine Estim Creat Clear Calc Estimated GFR POC Glucose 214 H 156 H 183 H Random Glucose Calcium Total Creatine Kinase 11/06/21 11/06/21 06:21 07:36 Sodium 139 Potassium 4.0 Chloride 108 Carbon Dioxide 24 Anion Gap 11 L BUN 31 H Creatinine 1.43 H Estim Creat Clear Calc 29.9 Estimated GFR 35 POC Glucose 128 H Random Glucose 134 H Calcium 8.7 Total Creatine Kinase 272 H D Microbiology Microbiology Results: Microbiology 11/02/21 22:20 Blood - Venous Blood Culture - Preliminary No growth after 48 hours. 11/02/21 22:20 Blood - Venous Blood Culture - Preliminary No growth after 48 hours. 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 C/W rest of current management Shall arrange close follow up in office when D/Yoel Time Spent With Patient Time: Total time spent is greater than 50% in coordination of care (as documented) at patient's floor/unit and/or counseling patient: Progress Note: Quality Stroke Does the patient have a stroke diagnosis?: No
[2021-11-06 11:44] LABS: Glucose, Whole Blood 133 mg/dL (60-115)
--- NOTE | 2021-11-06 11:57 | MHC.CM.PN ---
PATIENT TO TRANSFER TO [facility] FOR A 1500 REQUEST SON, UNIQUE, , AWARE ANMD IN AGREEMENT WITH PLAN. RN AND UNIT AWARE OF PLAN. IMM 11/06 IN CHART
--- NOTE | 2021-11-06 12:43 | PM.DS ---
DS: Providers Provider Date of Service: 11/06/21 Date of admission: 11/02/21 23:32 Date of discharge: 11/06/21 Primary care physician: Kingston Guzman MD Consults: 11/02/21 23:32 Consult to Nephrology Routine Consulting Provider: Price Byrnes Reason for consultation: chidi on ckd DS: Diagnosis Discharge Diagnosis (1) CHIDI (acute kidney injury): Status: Acute DS: Summary Hospital Course Hospital Course: 81-year-old female with a past medical history of hypertension, hyperlipidemia, diabetes, history of DVT, vitamin-D deficiency, renal artery stenosis, peripheral vascular disease, multiple sclerosis-resultant wheelchair-bound; chronic kidney disease, history of breast cancer, anemia presented to the hospital with a chief complaint of fall.? Patient reports that she fell down from her wheelchair twice; landed on the knee; denies any head strike or loss of consciousness.? Complained of pain in the knees briefly.? Mentioned that she has urinary discomfort but which has been chronic.? Denies any fevers at him.? Denies any nausea vomiting or diarrhea.? Denies any chest pain or palpitations.? Denies any lightheadedness dizziness.? Review of all other systems is negative except mentioned above ER course: Per ER team patient x-rays were negative for any fractures; urinalysis was abnormal consistent with UTI.? Given ceftriaxone.? Also noted to have acute on chronic kidney injury.? Admitted for further management. Hospital Course Admitted to general medical floor given IV volume repletion and empiric therapy for UTI. Noted to have acute on chronic renal insufficiency; seen by Nephrology who agreed with plan as instituted. Over the course of the next 2 3 days patient improved and was seen by Physical therapy. Physical therapy screen and recommended STR. At this point time she will be discharged to SNF to complete a course of Ceftin and follow up with Renal Time Spent with Patient Time attestation: Total time spent providing and/or coordinating discharge services: Discharge coordination time: Greater than 30 minutes Quality: Safe Use of Opioids Does Pt have an Active Cancer Diagnosis on the Problem List?: No Quality: Stroke Does the patient have a stroke diagnosis?: No Physical Exam Vital Signs: Vital Signs: Last Vital Signs Temp 98.9 F 11/06/21 07:35 Pulse 88 11/06/21 07:35 Resp 16 11/06/21 07:35 BP 150/71 H 11/06/21 07:35 Pulse Ox 99 11/06/21 07:35 BMI result Body Mass Index 21.9 Const: Other: Awake alert oriented x3 no acute distress Resp: Other: Clear to auscultation bilaterally no rales rhonchi or wheezes Cardio: Other: No S4; positive S1-S2; no S3 murmurs rubs or gallops GI: Other: Soft nontender nondistended with normoactive bowel sounds Extrem: Other: No edema bilaterally DS: Data Data Completed and Pending Completed studies during hospitalization [Text1]: Procedures Resection of Left Breast, Open Approach (08/02/21) Transfusion of Nonautologous Red Blood Cells into Peripheral Vein, Percutaneous Approach (08/02/21) Labs on day of discharge: Laboratory Results - last 24 hr 11/05/21 11/05/21 11/06/21 15:38 19:46 06:21 Sodium 139 Potassium 4.0 Chloride 108 Carbon Dioxide 24 Anion Gap 11 L BUN 31 H Creatinine 1.43 H Estim Creat Clear Calc 29.9 Estimated GFR 35 POC Glucose 156 H 183 H Random Glucose 134 H Calcium 8.7 Total Creatine Kinase 272 H D 11/06/21 11/06/21 07:36 11:15 Sodium Potassium Chloride Carbon Dioxide Anion Gap BUN Creatinine Estim Creat Clear Calc Estimated GFR POC Glucose 128 H 133 H Random Glucose Calcium Total Creatine Kinase Preliminary micro results at discharge 11/02/21 22:20 Blood Culture - Preliminary Blood - Venous No growth after 48 hours. 11/02/21 22:20 Blood Culture - Preliminary Blood - Venous No growth after 48 hours. Discharge Plan Discharge Patient Disposition: [facility] Discharge Diagnosis: UTI Referrals: Keri Blanton [Outside] - 1 Week Po,Kingston Parker MD [Primary Care Provider] - 1 Week Discharge Medications: New cefuroxime axetil 250 mg tablet 250 mg PO BID 3 Days Qty: 6 0RF Continued atorvastatin 10 mg tablet 10 mg PO DAILY Qty: 90 3RF cholecalciferol (vitamin D3) 50 mcg (2,000 unit) capsule 50 mcg PO DAILY Qty: 90 3RF amlodipine 5 mg tablet 5 mg PO DAILY Qty: 90 3RF acetaminophen [Tylenol Extra Strength] 500 mg tablet 1,000 mg PO Q6H PRN (Reason: pain) Qty: 60 0RF tamoxifen 20 mg Tablet 20 mg PO DAILY Qty: 90 4RF calcium carbonate [Calcium 600] 600 mg calcium (1,500 mg) Tablet 600 mg PO BID Qty: 60 4RF aspirin [Adult Aspirin Regimen] 81 mg tablet,delayed release (DR/EC) 81 mg PO DAILY 0RF Senna Plus 8.6-50 mg capsule 1 tab-cap PO BEDTIME 0RF Discharge Orders: Discharge Order (Routine); Ordered 11/06/21 Ordered By: Oscar Pollock Diet: advance to usual diet Activity on Discharge: As tolerated Stand Alone Forms: Patient Portal Discharge page Care Plan Goals: Complete course of Ceftin as ordered Health Concerns: Maintain highest level of function with hopes to return home with services Plan of Treatment: PT as per receiving facility Assessment: See discharge summary
== END 2021-11-06 15:44 | disposition skilled nursing facility (03) | DRG 690 ==
LOC: HO.ED 19:32 → HO.EDOVER 23:41 → HO.S3 11-03 20:51
PROVIDERS: Family Medicine; Admitting Provider Hospitalist; Emergency Provider Internal Medicine; PCP Internal Medicine; Visit Provider Hospitalist
DX: N39.0 Urinary tract infection, site not specified (principal); N17.9 Acute kidney failure, unspecified; N18.4 Chronic kidney disease, stage 4 (severe); M62.82 Rhabdomyolysis; I12.9 Hypertensive chronic kidney disease with stage 1 through stage 4 chronic kidney disease, or unspecified chronic kidney disease; C50.912 Malignant neoplasm of unspecified site of left female breast; E11.51 Type 2 diabetes mellitus with diabetic peripheral angiopathy without gangrene; E11.65 Type 2 diabetes mellitus with hyperglycemia; G35 Multiple sclerosis; E11.22 Type 2 diabetes mellitus with diabetic chronic kidney disease; D63.1 Anemia in chronic kidney disease; E87.5 Hyperkalemia; E78.5 Hyperlipidemia, unspecified; Z86.718 Personal history of other venous thrombosis and embolism; L89.312 Pressure ulcer of right buttock, stage 2; Z20.822 Contact with and (suspected) exposure to COVID-19; R29.6 Repeated falls; Z99.3 Dependence on wheelchair; Z91.81 History of falling; Z90.12 Acquired absence of left breast and nipple; Z87.891 Personal history of nicotine dependence; Z79.82 Long term (current) use of aspirin; Z79.811 Long term (current) use of aromatase inhibitors; Z79.899 Other long term (current) drug therapy
CPT/HCPCS: 36415; 70450; 72125; 72170; 73564; 80048; 80053; 81001; 82550; 82728; 82947; 83540; 83605; 85025; 87040; 87086; 87635; 93005; 96361; 96374; 97162; 99285; J0696

== ENCOUNTER 2021-11-22 14:44 | Inpatient (IN) | payer MEDICARE, OTHER, SELFPAY ==
[2021-11-22] VITALS (7 sets, daily range): BP systolic 108–148; BP diastolic 54–84; PULSE 93–106; RESP 15–20; TEMP 36.6–36.8; O2SAT 97–100; BMI 20.8
--- NOTE | 2021-11-22 15:07 | PC.NURSE ---
During triage process, breakdown of coccyx noted. reddended escoriated area approximately 10cm by 7cm noted. Small bowel movement noted at this time.
--- NOTE | 2021-11-22 15:11 | ECG_ITS ---
Test Reason : LOW HNH Blood Pressure : / mmHG Vent. Rate : 098 BPM Atrial Rate : 098 BPM P-R Int : 146 ms QRS Dur : 070 ms QT Int : 352 ms P-R-T Axes : 006 -16 064 degrees QTc Int : 449 ms Normal sinus rhythm Normal ECG When compared with ECG of 02-NOV-2021 18:59, No significant change was found Referred By: Kalpana Saldana Electronically Signed By:VEL KEARNEY MD
--- NOTE | 2021-11-22 15:29 | ED.RECABL ---
HPI - Recheck/Abnormal Lab/Rx General Chief Complaint: Recheck/Abnormal Lab/Rx <Kalpana Saldana CNP - Last Filed: 11/22/21 18:40> Stated Complaint: ABN LABS FROM SNF PER EMS <Kalpana Saldana CNP - Last Filed: 11/22/21 18:40> Time Seen by Provider: 11/22/21 15:09 <Kalpana Saldana CNP - Last Filed: 11/22/21 18:40> Source: RN notes reviewed <Kalpana Saldana CNP - Last Filed: 11/22/21 18:40> Mode of arrival: EMS <Kalpana Saldana CNP - Last Filed: 11/22/21 18:40> Limitations: no limitations <Kalpana Saldana CNP - Last Filed: 11/22/21 18:40> History of Present Illness HPI narrative: Patient presents to the emergency department via EMS transfer coming from [facility] facility for evaluation of abnormal labs, reportedly has a low hemoglobin despite receding pro for yesterday. On exam patient has no complaints. She has a vague historian. <Kalpana Saldana CNP - Last Filed: 11/22/21 18:40> Related Data Home Medications: Home Medications Medication Instructions Recorded Confirmed aspirin 81 mg tablet,delayed 81 mg PO DAILY 08/08/20 11/03/21 release (Adult Aspirin Regimen) sennosides 8.6 mg-docusate sodium 1 tab-cap PO BEDTIME 08/08/20 11/03/21 50 mg capsule (Senna Plus) Previous Rx's Medication Instructions Recorded atorvastatin 10 mg tablet 10 mg PO DAILY #90 cap 11/18/20 acetaminophen 500 mg tablet 1,000 mg PO Q6H PRN #60 tab 08/07/21 (Tylenol Extra Strength) amlodipine 5 mg tablet 5 mg PO DAILY #90 cap 09/14/21 cholecalciferol (vitamin D3) 50 50 mcg PO DAILY #90 cap 09/14/21 mcg (2,000 unit) capsule calcium carbonate 600 mg calcium 600 mg PO BID #60 tab 10/17/21 (1,500 mg) tablet (Calcium) tamoxifen 20 mg tablet 20 mg PO DAILY #90 tab 10/17/21 cefuroxime axetil 250 mg tablet 250 mg PO BID 3 Days #6 tab 11/06/21 <Kalpana Saldana CNP - Last Filed: 11/22/21 18:40> Allergies/Adverse Reactions: Allergies Allergy/AdvReac Type Severity Reaction Status Date / Time No Known Allergies Allergy Verified 10/17/21 15:27 <Kalpana Saldana CNP - Last Filed: 11/22/21 18:40> Review of Systems Review of Systems: Constitutional: No fever, chills Skin: No rash or itching. Cardiovascular: No chest pain. No palpitations. Respiratory: No shortness of breath, cough or sputum production. Gastrointestinal: No, nausea, vomiting or diarrhea. No abdominal pain or blood in stool. Genitourinary: No burning micturition. No urinary frequency or incontinence. No hematuria. Musculoskeletal: No muscle pain, back pain, joint pain or stiffness. <Kalpana Saldana CNP - Last Filed: 11/22/21 18:40> Yes all other systems are reviewed and are negative <Kalpana Saldana CNP - Last Filed: 11/22/21 18:40> [facility] Past Medical History Attestation statement: The following information was validated with the patient. <Kalpana Saldana CNP - Last Filed: 11/22/21 18:40> Source: old records reviewed <Kalpana Saldana CNP - Last Filed: 11/22/21 18:40> Medical History: Medical History Anemia Breast cancer Chronic kidney disease Diabetes Diabetic nephropathy DVT (deep venous thrombosis) Hypercholesterolemia Hypertension Multiple sclerosis Peripheral vascular disease Poor historian Renal artery stenosis Vitamin D deficiency <Kalpana Saldana CNP - Last Filed: 11/22/21 18:40> Surgical History: Surgical History H/O colonoscopy H/O total mastectomy of left breast History of breast lump/mass excision History of intravascular stent placement <Kalpana Saldana CNP - Last Filed: 11/22/21 18:40> Family History Family History: Family History Father Hypertension Chronic kidney failure Mother Hypertension Diabetes Brother CKD (chronic kidney disease) Brother Gunshot wound Sister Throat cancer Son No problems noted. Daughter No problems noted. <Kalpana Saldana CNP - Last Filed: 11/22/21 18:40> Social History Social History: Social History Household Members: None Housing: House Are you a primary career placement services counselor to a significant other at home: No Do you presently have visiting nurse or other home services: No Alcohol intake: never Patient Tobacco Use Status: Former Tobacco user Quit Date: as teenager Tobacco use type: Cigarette e-Cigarette/Vaping Use: Never Used Second Hand Smoke Exposure: No Advance Directives: Yes Advance Directives on File: Yes Advance Directives Date on File: 08/08/21 service: No Current occupational status: retired <Kalpana Saldana CNP - Last Filed: 11/22/21 18:40> Physical Exam Vital Signs: Vital Signs: Last Vital Signs Temp 98.2 F 11/23/21 02:33 Pulse 100 11/23/21 02:33 Resp 25 H 11/23/21 02:33 BP 130/61 11/23/21 02:33 Pulse Ox 100 11/23/21 02:33 BMI result Body Mass Index 20.8 <Kalpana Saldana CNP - Last Filed: 11/22/21 18:40> Vital Signs: Last Vital Signs Temp 98.2 F 11/23/21 02:33 Pulse 100 11/23/21 02:33 Resp 25 H 11/23/21 02:33 BP 130/61 11/23/21 02:33 Pulse Ox 100 11/23/21 02:33 BMI result Body Mass Index 20.8 <ROD Weiss - Last Filed: 11/23/21 02:50> Appearance: Alert.?Oriented to person, place and time. No acute distress.?Normal affect. Eyes: Pupils equal, round and reactive to light.? EOMI. ENT: Pharynx normal.?? Neck: Normal inspection.? Neck supple.?? CVS: Heart sounds normal. Normal heart rate and rhythm.? Pulses normal.?? Respiratory: No respiratory distress.? Lung sounds clear to auscultation bilaterally?? Abdomen: Soft and non-tender. Normoactive bowel sounds. No pulsatile mass.?? Rectal: Rectal exam performed with ED pump technician blower and compressor assemblerSyd Skin: Skin warm and dry.? Normal skin color.? Extremities: No lower extremity edema.? No calf ttp? Neuro: Moves all extremities spontaneously. Sensation intact bilaterally. No focal neuro deficits. Wheelchair dependent, nonambulatory <Kalpana Saldana CNP - Last Filed: 11/22/21 18:40> Course Course Course Narrative: Patient is an 81-year-old female with a past medical history of hypertension, hyperlipidemia, diabetes, history of DVT, vitamin-D deficiency, renal artery stenosis, peripheral vascular disease, multiple sclerosis and is wheelchair bound, chronic kidney disease stage IV, and anemia of chronic disease. Chart review indicates patient was recently discharged from inpatient medicine service on 11/06/2021, H&H 8.5/26.4 on 11/03/21. [facility] [place] spoke with nurse Mcintyre, who provided trending hemoglobin on 11/16 was 7.3, yesterday 6.4 and she received Procrit injection, today was 6.1 therefore she was transferred to the hospital. No acute reports of bleeding or complaints from patient. Initial bedside occult stool sample was negative. Will obtain CBC, CMP, type and screen, stool culture to the lab. Patient with no acute complaints at this time, physical exam is overall benign. She has a mild tachycardia at 01:06, but no hypoxia, or tachypnea. Bedside occult stool is negative, and H&H responds to transfusion will likely plan for discharge back to skilled facility. Most recent baseline hemoglobin 7.3-8.5 and hematocrit 22.6 and 26.4 <Kalpana Saldana CNP - Last Filed: 11/22/21 18:40> Reevaluation(s) Reevaluation #1: Nursing staff had difficulty obtaining IV access. IV access obtained this time in addition serum labs. Patient continues to have no complaints at this time. Hemodynamically stable, blood pressure 1 16-58 and pulse is 88, O2 saturation 100% on room air, respiratory rate 18. <Kalpana Saldana CNP - Last Filed: 11/22/21 18:40> Time: 17:30 <Kalpana Saldana CNP - Last Filed: 11/22/21 18:40> Reevaluation #2: Patient signed out to Jade VELASCO, pending results of serum labs and blood transfusion. Advised plan of care for re-evaluation after transfusion for potential discharge back to [facility] facility if no acute findings or occult positive stool as cause of her anemia has been determined to be secondary to chronic disease. <Kalpana Saldana CNP - Last Filed: 11/22/21 18:40> Time: 18:37 <Kalpana Saldana CNP - Last Filed: 11/22/21 18:40> Reevaluation #3: I repeated laboratory studies to confirm that patient was anemic, patient's H&H dropped therefore 1 unit packed red blood cells were administered. After 1 units of packed red blood cells patient's hemoglobin now 8.5, hematocrit 26.0. OBS negative. Patient is noted have an acute on chronic kidney injury. And hyperkalemia which she was given 10 mg of Lokelma for. Repeat potassium pending at this time. Patient feeling much better. Upon moving patient she is noted to have bedsores to her bottom. <ROD Weiss - Last Filed: 11/23/21 02:50> Time: 02:19 <ROD Weiss - Last Filed: 11/23/21 02:50> Additional Reevaluation(s): Plan at this this time is to admit patient to hospitalist team for anemia, hyperkalemia, acute on chronic kidney injury. Patient will likely require observation as her hemoglobin and hematocrit dropped so quickly while in our department. <ROD Weiss - Last Filed: 11/23/21 02:50> MDM - Recheck/Abnormal Lab/Rx Medical Records Attestation: I reviewed the patient's medical records. <Kalpana Saldana CNP - Last Filed: 11/22/21 18:40> Lab Data Attestation: I reviewed the patient's lab results. <Kalpana Saldana CNP - Last Filed: 11/22/21 18:40> Result diagrams: : 11/23/21 01:52 11/23/21 01:52 <Kalpana Saldana, SPECIAL FORCES COMMUNICATIONS SERGEANT - Last Filed: 11/22/21 18:40> Labs: Lab Results 11/22/21 11/22/21 11/22/21 Range/Units 17:39 17:39 17:39 WBC 8.9 (4.8-10.8) X10*3/uL RBC 2.53 L (4.20-5.50) X10*6/uL Hgb 7.5 L (12.0-16.0) g/dl Hct 24.1 L (37.0-47.0) % MCV 95.3 (80.0-98.0) fL MCH 29.6 (27.0-33.0) pg MCHC 31.1 (31.0-35.0) g/dl RDW 17.5 H (11.0-16.0) % Plt Count 216 (160-400) X10*3/uL MPV 10.7 (9.4-12.3) fL Immature Gran % (Auto) 0.7 H (0.0-0.4) % Neut % (Auto) 69.2 (45-73) % Lymph % (Auto) 15.3 L (20-40) % Martin % (Auto) 13.0 H (2-11) % Eos % (Auto) 1.5 (0-4) % Baso % (Auto) 0.3 (0-2) % Lymph # (Auto) 1.4 (1.2-4.9) X10*3/uL Martin # (Auto) 1.2 (0.1-1.2) X10*3/uL Eos # (Auto) 0.1 (0.0-0.4) X10*3/uL Baso # (Auto) 0.0 (0.0-0.2) X10*3/uL Abs Immat Gran (auto) 0.06 H (0.00-0.03) X10*3/uL Absolute Neuts (auto) 6.2 (2.0-8.3) x10*3/uL Absolute Nucleated RBC 0.020 H (0.0-0.012) X10*3/uL Nucleated RBC % (auto) 0.2 (0.0-0.2) /100WBC Sodium 134 L (135-145) mmol/L Potassium 5.3 H D (3.3-5.1) mmol/L Chloride 98 (96-108) mmol/L Carbon Dioxide 26 (22-29) mmol/L Anion Gap 15 (12-20) BUN 46 H (9-16) mg/dL Creatinine 2.32 H (0.5-1.4) mg/dL Estim Creat Clear Calc 18.0 Estimated GFR 20 Random Glucose 177 H (60-115) mg/dL Calcium 10.1 D (8.4-10.2) mg/dL Magnesium 2.4 (1.6-2.6) mg/dL Total Bilirubin 0.3 (0.0-1.0) mg/dL AST 13 D (5-31) U/L ALT 15 (0-31) U/L Alkaline Phosphatase 66 D (39-117) U/L Total Creatine Kinase (26-140) U/L Troponin I High Sens 6.5 (<3.5-17.0) ng/L Total Protein 6.3 L (6.5-8.0) g/dL Albumin 3.0 L (3.5-5.0) g/dL Stool Occult Blood (NEGATIVE) COVID-19 (TERE) (Negative) COVID-19 Clin Com Blood Type Antibody Screen Crossmatch 11/22/21 11/22/21 11/22/21 Range/Units 17:39 17:39 17:39 WBC (4.8-10.8) X10*3/uL RBC (4.20-5.50) X10*6/uL Hgb (12.0-16.0) g/dl Hct (37.0-47.0) % MCV (80.0-98.0) fL MCH (27.0-33.0) pg MCHC (31.0-35.0) g/dl RDW (11.0-16.0) % Plt Count (160-400) X10*3/uL MPV (9.4-12.3) fL Immature Gran % (Auto) (0.0-0.4) % Neut % (Auto) (45-73) % Lymph % (Auto) (20-40) % Martin % (Auto) (2-11) % Eos % (Auto) (0-4) % Baso % (Auto) (0-2) % Lymph # (Auto) (1.2-4.9) X10*3/uL Martin # (Auto) (0.1-1.2) X10*3/uL Eos # (Auto) (0.0-0.4) X10*3/uL Baso # (Auto) (0.0-0.2) X10*3/uL Abs Immat Gran (auto) (0.00-0.03) X10*3/uL Absolute Neuts (auto) (2.0-8.3) x10*3/uL Absolute Nucleated RBC (0.0-0.012) X10*3/uL Nucleated RBC % (auto) (0.0-0.2) /100WBC Sodium (135-145) mmol/L Potassium (3.3-5.1) mmol/L Chloride (96-108) mmol/L Carbon Dioxide (22-29) mmol/L Anion Gap (12-20) BUN (9-16) mg/dL Creatinine (0.5-1.4) mg/dL Estim Creat Clear Calc Estimated GFR Random Glucose (60-115) mg/dL Calcium (8.4-10.2) mg/dL Magnesium (1.6-2.6) mg/dL Total Bilirubin (0.0-1.0) mg/dL AST (5-31) U/L ALT (0-31) U/L Alkaline Phosphatase (39-117) U/L Total Creatine Kinase (26-140) U/L Troponin I High Sens (<3.5-17.0) ng/L Total Protein (6.5-8.0) g/dL Albumin (3.5-5.0) g/dL Stool Occult Blood NEGATIVE (NEGATIVE) COVID-19 (TERE) Negative (Negative) COVID-19 Clin Com See Note Blood Type A Positive Antibody Screen NEGATIVE Crossmatch See Detail 11/22/21 11/22/21 11/23/21 Range/Units 21:30 21:30 01:52 WBC 9.0 8.6 (4.8-10.8) X10*3/uL RBC 2.16 L 2.74 L D (4.20-5.50) X10*6/uL Hgb 6.4 L* 8.5 L D (12.0-16.0) g/dl Hct 20.4 L* 26.0 L D (37.0-47.0) % MCV 94.4 94.9 (80.0-98.0) fL MCH 29.6 31.0 (27.0-33.0) pg MCHC 31.4 32.7 (31.0-35.0) g/dl RDW 17.5 H 16.3 H (11.0-16.0) % Plt Count 209 211 (160-400) X10*3/uL MPV 9.7 10.0 (9.4-12.3) fL Immature Gran % (Auto) 0.6 H 0.5 H (0.0-0.4) % Neut % (Auto) 64.6 63.1 (45-73) % Lymph % (Auto) 20.4 20.9 (20-40) % Martin % (Auto) 11.3 H 11.0 (2-11) % Eos % (Auto) 2.9 4.2 H (0-4) % Baso % (Auto) 0.2 0.3 (0-2) % Lymph # (Auto) 1.8 1.8 (1.2-4.9) X10*3/uL Martin # (Auto) 1.0 1.0 (0.1-1.2) X10*3/uL Eos # (Auto) 0.3 0.4 (0.0-0.4) X10*3/uL Baso # (Auto) 0.0 0.0 (0.0-0.2) X10*3/uL Abs Immat Gran (auto) 0.05 H 0.04 H (0.00-0.03) X10*3/uL Absolute Neuts (auto) 5.8 5.4 (2.0-8.3) x10*3/uL Absolute Nucleated RBC 0.000 0.000 (0.0-0.012) X10*3/uL Nucleated RBC % (auto) 0.0 0.0 (0.0-0.2) /100WBC Sodium 136 (135-145) mmol/L Potassium 5.4 H (3.3-5.1) mmol/L Chloride 100 (96-108) mmol/L Carbon Dioxide 27 (22-29) mmol/L Anion Gap 14 (12-20) BUN 43 H (9-16) mg/dL Creatinine 2.11 H (0.5-1.4) mg/dL Estim Creat Clear Calc 19.9 Estimated GFR 22 Random Glucose 131 H (60-115) mg/dL Calcium 9.6 (8.4-10.2) mg/dL Magnesium (1.6-2.6) mg/dL Total Bilirubin 0.4 (0.0-1.0) mg/dL AST 13 (5-31) U/L ALT 16 (0-31) U/L Alkaline Phosphatase 62 (39-117) U/L Total Creatine Kinase 24 L D (26-140) U/L Troponin I High Sens (<3.5-17.0) ng/L Total Protein 6.0 L (6.5-8.0) g/dL Albumin 2.8 L (3.5-5.0) g/dL Stool Occult Blood (NEGATIVE) COVID-19 (TERE) (Negative) COVID-19 Clin Com Blood Type Antibody Screen Crossmatch 11/23/21 Range/Units 01:52 WBC (4.8-10.8) X10*3/uL RBC (4.20-5.50) X10*6/uL Hgb (12.0-16.0) g/dl Hct (37.0-47.0) % MCV (80.0-98.0) fL MCH (27.0-33.0) pg MCHC (31.0-35.0) g/dl RDW (11.0-16.0) % Plt Count (160-400) X10*3/uL MPV (9.4-12.3) fL Immature Gran % (Auto) (0.0-0.4) % Neut % (Auto) (45-73) % Lymph % (Auto) (20-40) % Martin % (Auto) (2-11) % Eos % (Auto) (0-4) % Baso % (Auto) (0-2) % Lymph # (Auto) (1.2-4.9) X10*3/uL Martin # (Auto) (0.1-1.2) X10*3/uL Eos # (Auto) (0.0-0.4) X10*3/uL Baso # (Auto) (0.0-0.2) X10*3/uL Abs Immat Gran (auto) (0.00-0.03) X10*3/uL Absolute Neuts (auto) (2.0-8.3) x10*3/uL Absolute Nucleated RBC (0.0-0.012) X10*3/uL Nucleated RBC % (auto) (0.0-0.2) /100WBC Sodium 134 L (135-145) mmol/L Potassium 5.0 (3.3-5.1) mmol/L Chloride 99 (96-108) mmol/L Carbon Dioxide 27 (22-29) mmol/L Anion Gap 13 (12-20) BUN 41 H (9-16) mg/dL Creatinine 2.06 H (0.5-1.4) mg/dL Estim Creat Clear Calc 20.3 Estimated GFR 23 Random Glucose 137 H (60-115) mg/dL Calcium 9.6 (8.4-10.2) mg/dL Magnesium (1.6-2.6) mg/dL Total Bilirubin 1.0 (0.0-1.0) mg/dL AST 14 (5-31) U/L ALT 14 (0-31) U/L Alkaline Phosphatase 66 (39-117) U/L Total Creatine Kinase (26-140) U/L Troponin I High Sens (<3.5-17.0) ng/L Total Protein 6.2 L (6.5-8.0) g/dL Albumin 2.9 L (3.5-5.0) g/dL Stool Occult Blood (NEGATIVE) COVID-19 (TERE) (Negative) COVID-19 Clin Com Blood Type Antibody Screen Crossmatch <Kalpana Saldana CNP - Last Filed: 11/22/21 18:40> Lab Results 11/22/21 11/22/21 11/22/21 Range/Units 17:39 17:39 17:39 WBC 8.9 (4.8-10.8) X10*3/uL RBC 2.53 L (4.20-5.50) X10*6/uL Hgb 7.5 L (12.0-16.0) g/dl Hct 24.1 L (37.0-47.0) % MCV 95.3 (80.0-98.0) fL MCH 29.6 (27.0-33.0) pg MCHC 31.1 (31.0-35.0) g/dl RDW 17.5 H (11.0-16.0) % Plt Count 216 (160-400) X10*3/uL MPV 10.7 (9.4-12.3) fL Immature Gran % (Auto) 0.7 H (0.0-0.4) % Neut % (Auto) 69.2 (45-73) % Lymph % (Auto) 15.3 L (20-40) % Martin % (Auto) 13.0 H (2-11) % Eos % (Auto) 1.5 (0-4) % Baso % (Auto) 0.3 (0-2) % Lymph # (Auto) 1.4 (1.2-4.9) X10*3/uL Martin # (Auto) 1.2 (0.1-1.2) X10*3/uL Eos # (Auto) 0.1 (0.0-0.4) X10*3/uL Baso # (Auto) 0.0 (0.0-0.2) X10*3/uL Abs Immat Gran (auto) 0.06 H (0.00-0.03) X10*3/uL Absolute Neuts (auto) 6.2 (2.0-8.3) x10*3/uL Absolute Nucleated RBC 0.020 H (0.0-0.012) X10*3/uL Nucleated RBC % (auto) 0.2 (0.0-0.2) /100WBC Sodium 134 L (135-145) mmol/L Potassium 5.3 H D (3.3-5.1) mmol/L Chloride 98 (96-108) mmol/L Carbon Dioxide 26 (22-29) mmol/L Anion Gap 15 (12-20) BUN 46 H (9-16) mg/dL Creatinine 2.32 H (0.5-1.4) mg/dL Estim Creat Clear Calc 18.0 Estimated GFR 20 Random Glucose 177 H (60-115) mg/dL Calcium 10.1 D (8.4-10.2) mg/dL Magnesium 2.4 (1.6-2.6) mg/dL Total Bilirubin 0.3 (0.0-1.0) mg/dL AST 13 D (5-31) U/L ALT 15 (0-31) U/L Alkaline Phosphatase 66 D (39-117) U/L Total Creatine Kinase (26-140) U/L Troponin I High Sens 6.5 (<3.5-17.0) ng/L Total Protein 6.3 L (6.5-8.0) g/dL Albumin 3.0 L (3.5-5.0) g/dL Stool Occult Blood (NEGATIVE) COVID-19 (TERE) (Negative) COVID-19 Clin Com Blood Type Antibody Screen Crossmatch 11/22/21 11/22/21 11/22/21 Range/Units 17:39 17:39 17:39 WBC (4.8-10.8) X10*3/uL RBC (4.20-5.50) X10*6/uL Hgb (12.0-16.0) g/dl Hct (37.0-47.0) % MCV (80.0-98.0) fL MCH (27.0-33.0) pg MCHC (31.0-35.0) g/dl RDW (11.0-16.0) % Plt Count (160-400) X10*3/uL MPV (9.4-12.3) fL Immature Gran % (Auto) (0.0-0.4) % Neut % (Auto) (45-73) % Lymph % (Auto) (20-40) % Martin % (Auto) (2-11) % Eos % (Auto) (0-4) % Baso % (Auto) (0-2) % Lymph # (Auto) (1.2-4.9) X10*3/uL Martin # (Auto) (0.1-1.2) X10*3/uL Eos # (Auto) (0.0-0.4) X10*3/uL Baso # (Auto) (0.0-0.2) X10*3/uL Abs Immat Gran (auto) (0.00-0.03) X10*3/uL Absolute Neuts (auto) (2.0-8.3) x10*3/uL Absolute Nucleated RBC (0.0-0.012) X10*3/uL Nucleated RBC % (auto) (0.0-0.2) /100WBC Sodium (135-145) mmol/L Potassium (3.3-5.1) mmol/L Chloride (96-108) mmol/L Carbon Dioxide (22-29) mmol/L Anion Gap (12-20) BUN (9-16) mg/dL Creatinine (0.5-1.4) mg/dL Estim Creat Clear Calc Estimated GFR Random Glucose (60-115) mg/dL Calcium (8.4-10.2) mg/dL Magnesium (1.6-2.6) mg/dL Total Bilirubin (0.0-1.0) mg/dL AST (5-31) U/L ALT (0-31) U/L Alkaline Phosphatase (39-117) U/L Total Creatine Kinase (26-140) U/L Troponin I High Sens (<3.5-17.0) ng/L Total Protein (6.5-8.0) g/dL Albumin (3.5-5.0) g/dL Stool Occult Blood NEGATIVE (NEGATIVE) COVID-19 ([facility]E) Negative (Negative) COVID-19 Clin Com See Note Blood Type A Positive Antibody Screen NEGATIVE Crossmatch See Detail 11/22/21 11/22/21 11/23/21 Range/Units 21:30 21:30 01:52 WBC 9.0 8.6 (4.8-10.8) X10*3/uL RBC 2.16 L 2.74 L D (4.20-5.50) X10*6/uL Hgb 6.4 L* 8.5 L D (12.0-16.0) g/dl Hct 20.4 L* 26.0 L D (37.0-47.0) % MCV 94.4 94.9 (80.0-98.0) fL MCH 29.6 31.0 (27.0-33.0) pg MCHC 31.4 32.7 (31.0-35.0) g/dl RDW 17.5 H 16.3 H (11.0-16.0) % Plt Count 209 211 (160-400) X10*3/uL MPV 9.7 10.0 (9.4-12.3) fL Immature Gran % (Auto) 0.6 H 0.5 H (0.0-0.4) % Neut % (Auto) 64.6 63.1 (45-73) % Lymph % (Auto) 20.4 20.9 (20-40) % Martin % (Auto) 11.3 H 11.0 (2-11) % Eos % (Auto) 2.9 4.2 H (0-4) % Baso % (Auto) 0.2 0.3 (0-2) % Lymph # (Auto) 1.8 1.8 (1.2-4.9) X10*3/uL Martin # (Auto) 1.0 1.0 (0.1-1.2) X10*3/uL Eos # (Auto) 0.3 0.4 (0.0-0.4) X10*3/uL Baso # (Auto) 0.0 0.0 (0.0-0.2) X10*3/uL Abs Immat Gran (auto) 0.05 H 0.04 H (0.00-0.03) X10*3/uL Absolute Neuts (auto) 5.8 5.4 (2.0-8.3) x10*3/uL Absolute Nucleated RBC 0.000 0.000 (0.0-0.012) X10*3/uL Nucleated RBC % (auto) 0.0 0.0 (0.0-0.2) /100WBC Sodium 136 (135-145) mmol/L Potassium 5.4 H (3.3-5.1) mmol/L Chloride 100 (96-108) mmol/L Carbon Dioxide 27 (22-29) mmol/L Anion Gap 14 (12-20) BUN 43 H (9-16) mg/dL Creatinine 2.11 H (0.5-1.4) mg/dL Estim Creat Clear Calc 19.9 Estimated GFR 22 Random Glucose 131 H (60-115) mg/dL Calcium 9.6 (8.4-10.2) mg/dL Magnesium (1.6-2.6) mg/dL Total Bilirubin 0.4 (0.0-1.0) mg/dL AST 13 (5-31) U/L ALT 16 (0-31) U/L Alkaline Phosphatase 62 (39-117) U/L Total Creatine Kinase 24 L D (26-140) U/L Troponin I High Sens (<3.5-17.0) ng/L Total Protein 6.0 L (6.5-8.0) g/dL Albumin 2.8 L (3.5-5.0) g/dL Stool Occult Blood (NEGATIVE) COVID-19 ([facility]) (Negative) COVID-19 Clin Com Blood Type Antibody Screen Crossmatch 11/23/21 Range/Units 01:52 WBC (4.8-10.8) X10*3/uL RBC (4.20-5.50) X10*6/uL Hgb (12.0-16.0) g/dl Hct (37.0-47.0) % MCV (80.0-98.0) fL MCH (27.0-33.0) pg MCHC (31.0-35.0) g/dl RDW (11.0-16.0) % Plt Count (160-400) X10*3/uL MPV (9.4-12.3) fL Immature Gran % (Auto) (0.0-0.4) % Neut % (Auto) (45-73) % Lymph % (Auto) (20-40) % Martin % (Auto) (2-11) % Eos % (Auto) (0-4) % Baso % (Auto) (0-2) % Lymph # (Auto) (1.2-4.9) X10*3/uL Martin # (Auto) (0.1-1.2) X10*3/uL Eos # (Auto) (0.0-0.4) X10*3/uL Baso # (Auto) (0.0-0.2) X10*3/uL Abs Immat Gran (auto) (0.00-0.03) X10*3/uL Absolute Neuts (auto) (2.0-8.3) x10*3/uL Absolute Nucleated RBC (0.0-0.012) X10*3/uL Nucleated RBC % (auto) (0.0-0.2) /100WBC Sodium 134 L (135-145) mmol/L Potassium 5.0 (3.3-5.1) mmol/L Chloride 99 (96-108) mmol/L Carbon Dioxide 27 (22-29) mmol/L Anion Gap 13 (12-20) BUN 41 H (9-16) mg/dL Creatinine 2.06 H (0.5-1.4) mg/dL Estim Creat Clear Calc 20.3 Estimated GFR 23 Random Glucose 137 H (60-115) mg/dL Calcium 9.6 (8.4-10.2) mg/dL Magnesium (1.6-2.6) mg/dL Total Bilirubin 1.0 (0.0-1.0) mg/dL AST 14 (5-31) U/L ALT 14 (0-31) U/L Alkaline Phosphatase 66 (39-117) U/L Total Creatine Kinase (26-140) U/L Troponin I High Sens (<3.5-17.0) ng/L Total Protein 6.2 L (6.5-8.0) g/dL Albumin 2.9 L (3.5-5.0) g/dL Stool Occult Blood (NEGATIVE) COVID-19 ([facility]) (Negative) COVID-19 Clin Com Blood Type Antibody Screen Crossmatch <ROD Weiss - Last Filed: 11/23/21 02:50> ECG Data Attestation: I personally reviewed and interpreted this ECG as follows: <Kalpana Saldana CNP - Last Filed: 11/22/21 18:40> ECG interpretation date: 11/22/21 <Kalpana Saldana CNP - Last Filed: 11/22/21 18:40> Interpretation: Rate: 98 Rhythm:? Normal sinus rhythm [place]:? Gwendolyn Normal P waves.? Normal JUAN.?? Normal QRS complex.?? ST T wave :??No ST elevation, no ST depression, T-wave inversion qTC: 449 prior studies: October 2021? The study has been interpreted contemporaneously by me. <Kalpana Saldana CNP - Last Filed: 11/22/21 18:40> Critical Care Time Critical Care Time Critical Care Time: No <ROD Weiss - Last Filed: 11/23/21 02:50> Discharge Plan Discharge Clinical Impression: Anemia, Acute kidney injury superimposed on CKD, Acute hyperkalemia <Kalpana Saldana CNP - Last Filed: 11/22/21 18:40> Patient Disposition: Admitted As Inpatient <Kalpana Saldana CNP - Last Filed: 11/22/21 18:40>
[2021-11-22 17:46] LABS: MANUAL DIFF FLAG NO
[2021-11-22 17:49] LABS: Basophils Percent Auto 0.3 % (0-2); Eosinophils Absolute Auto 0.1 X10*3/uL (0.0-0.4); Eosinophils Percent Auto 1.5 % (0-4); Hematocrit 24.1 % (37.0-47.0); Hemoglobin 7.5 g/dl (12.0-16.0); Imm Gran Abs Auto 0.06 X10*3/uL (0.00-0.03); Imm Gran Pct Auto 0.7 % (0.0-0.4); Lymphocytes Absolute Auto 1.4 X10*3/uL (1.2-4.9); Lymphocytes Percent Auto 15.3 % (20-40); Mean Corpuscular HGB Conc 31.1 g/dl (31.0-35.0); Mean Corpuscular Hemoglobin 29.6 pg (27.0-33.0); Mean Corpuscular Volume 95.3 fL (80.0-98.0); Mean Platelet Volume 10.7 fL (9.4-12.3); Monocytes Absolute Auto 1.2 X10*3/uL (0.1-1.2); NRBC Pct Auto 0.2 /100WBC (0.0-0.2); Neutrophils Absolute Auto 6.2 x10*3/uL (2.0-8.3); Neutrophils Percent Auto 69.2 % (45-73); Platelet Count 216 X10*3/uL (160-400); Red Blood Count 2.53 X10*6/uL (4.20-5.50); Red Cell Distribution Width 17.5 % (11.0-16.0); White Blood Count 8.9 X10*3/uL (4.8-10.8)
[2021-11-22 17:52] LABS: OBS Int Ctl Valid YES; OBS1 NEGATIVE (NEGATIVE)
[2021-11-22 18:04] LABS: COVID-19 Test Negative (Negative)
[2021-11-22 18:05] LABS: Alanine Aminotransferase 15 U/L (0-31); Alkaline Phosphatase 66 U/L (39-117); Anion Gap 15 (12-20); Aspartate Amino Transferase 13 U/L (5-31); Bilirubin Total 0.3 mg/dL (0.0-1.0); Blood Urea Nitrogen 46 mg/dL (9-16); Calcium 10.1 mg/dL (8.4-10.2); Carbon Dioxide 26 mmol/L (22-29); Chloride 98 mmol/L (96-108); Estimated Glomerular Filt Rate 20; Glucose Random 177 mg/dL (60-115); Magnesium 2.4 mg/dL (1.6-2.6); Potassium 5.3 mmol/L (3.3-5.1); Sodium 134 mmol/L (135-145); Total Protein 6.3 g/dL (6.5-8.0)
[2021-11-22 18:12] LABS: Troponin-I High Sensitivity 6.5 ng/L (<3.5-17.0)
[2021-11-22] MEDS: 0.9 % Sodium Chloride 500 ML IV (19:59)
[2021-11-22 21:34] LABS: MANUAL DIFF FLAG NO
[2021-11-22 21:35] LABS: Basophils Percent Auto 0.2 % (0-2); Eosinophils Absolute Auto 0.3 X10*3/uL (0.0-0.4); Eosinophils Percent Auto 2.9 % (0-4); Imm Gran Abs Auto 0.05 X10*3/uL (0.00-0.03); Imm Gran Pct Auto 0.6 % (0.0-0.4); Lymphocytes Absolute Auto 1.8 X10*3/uL (1.2-4.9); Lymphocytes Percent Auto 20.4 % (20-40); Mean Corpuscular HGB Conc 31.4 g/dl (31.0-35.0); Mean Corpuscular Hemoglobin 29.6 pg (27.0-33.0); Mean Corpuscular Volume 94.4 fL (80.0-98.0); Mean Platelet Volume 9.7 fL (9.4-12.3); Monocytes Percent Auto 11.3 % (2-11); Neutrophils Absolute Auto 5.8 x10*3/uL (2.0-8.3); Neutrophils Percent Auto 64.6 % (45-73); Platelet Count 209 X10*3/uL (160-400); Red Blood Count 2.16 X10*6/uL (4.20-5.50); Red Cell Distribution Width 17.5 % (11.0-16.0)
[2021-11-22 21:36] LABS: Hematocrit 20.4 % (37.0-47.0)
[2021-11-22 21:38] LABS: Hemoglobin 6.4 g/dl (12.0-16.0)
[2021-11-22 21:56] LABS: Alanine Aminotransferase 16 U/L (0-31); Albumin Level 2.8 g/dL (3.5-5.0); Alkaline Phosphatase 62 U/L (39-117); Anion Gap 14 (12-20); Aspartate Amino Transferase 13 U/L (5-31); Bilirubin Total 0.4 mg/dL (0.0-1.0); Blood Urea Nitrogen 43 mg/dL (9-16); Calcium 9.6 mg/dL (8.4-10.2); Carbon Dioxide 27 mmol/L (22-29); Chloride 100 mmol/L (96-108); Creatinine Clr Calc Pharmacy 19.9; Estimated Glomerular Filt Rate 22; Glucose Random 131 mg/dL (60-115); Potassium 5.4 mmol/L (3.3-5.1); Sodium 136 mmol/L (135-145)
[2021-11-23] VITALS (8 sets, daily range): BP systolic 120–145; BP diastolic 56–70; PULSE 83–100; RESP 16–25; TEMP 36.3–37.2; O2SAT 96–100
[2021-11-23 01:57] LABS: Basophils Percent Auto 0.3 % (0-2); Eosinophils Absolute Auto 0.4 X10*3/uL (0.0-0.4); Eosinophils Percent Auto 4.2 % (0-4); Hemoglobin 8.5 g/dl (12.0-16.0); Imm Gran Abs Auto 0.04 X10*3/uL (0.00-0.03); Imm Gran Pct Auto 0.5 % (0.0-0.4); Lymphocytes Absolute Auto 1.8 X10*3/uL (1.2-4.9); Lymphocytes Percent Auto 20.9 % (20-40); MANUAL DIFF FLAG NO; Mean Corpuscular HGB Conc 32.7 g/dl (31.0-35.0); Mean Corpuscular Volume 94.9 fL (80.0-98.0); Neutrophils Absolute Auto 5.4 x10*3/uL (2.0-8.3); Neutrophils Percent Auto 63.1 % (45-73); Platelet Count 211 X10*3/uL (160-400); Red Blood Count 2.74 X10*6/uL (4.20-5.50); Red Cell Distribution Width 16.3 % (11.0-16.0); White Blood Count 8.6 X10*3/uL (4.8-10.8)
[2021-11-23] MEDS: Sodium Zirconium Cyclosilicate 10 GM POWD.PACK PO ×2 (02:09→07:42)
[2021-11-23 02:28] LABS: Alanine Aminotransferase 14 U/L (0-31); Albumin Level 2.9 g/dL (3.5-5.0); Alkaline Phosphatase 66 U/L (39-117); Anion Gap 13 (12-20); Aspartate Amino Transferase 14 U/L (5-31); Blood Urea Nitrogen 41 mg/dL (9-16); Calcium 9.6 mg/dL (8.4-10.2); Carbon Dioxide 27 mmol/L (22-29); Chloride 99 mmol/L (96-108); Creatinine Clr Calc Pharmacy 20.3; Estimated Glomerular Filt Rate 23; Glucose Random 137 mg/dL (60-115); Sodium 134 mmol/L (135-145); Total Protein 6.2 g/dL (6.5-8.0)
[2021-11-23 04:51] LABS: Appearance Urine CLOUDY; Color Urine YELLOW; Glucose Urine UA NEG (NEG); Leukocyte Esterase Urine 2+ (NEG); Nitrite Urine POS (NEG); UACC Culture Trigger YES; Urine Blood 1+ (NEG); Urine Ketones NEG (NEG); Urine Protein 2+ MG/DL (NEG-TRACE)
[2021-11-23 04:58] LABS: Bacteria Urine 4+ /LPF; RBC Urine 0-2 /HPF (0); WBC Clumps Urine NOTED; WBC Urine 30-49 /HPF (0-4)
[2021-11-23] MEDS: cefTRIAXone sodium 1 GM in 0.9 % Sodium Chloride 50 ML IV (06:03)
[2021-11-23] MEDS: 0.9 % Sodium Chloride 1,000 ML 100 ML IVCONT ×2 (06:04→16:45)
[2021-11-23 06:05] LABS: MANUAL DIFF FLAG NO
[2021-11-23 06:06] LABS: Basophils Percent Auto 0.3 % (0-2); Eosinophils Absolute Auto 0.3 X10*3/uL (0.0-0.4); Eosinophils Percent Auto 3.3 % (0-4); Hemoglobin 8.4 g/dl (12.0-16.0); Imm Gran Abs Auto 0.05 X10*3/uL (0.00-0.03); Imm Gran Pct Auto 0.6 % (0.0-0.4); Lymphocytes Absolute Auto 1.3 X10*3/uL (1.2-4.9); Lymphocytes Percent Auto 16.2 % (20-40); Mean Corpuscular HGB Conc 32.3 g/dl (31.0-35.0); Mean Corpuscular Hemoglobin 30.8 pg (27.0-33.0); Mean Corpuscular Volume 95.2 fL (80.0-98.0); Mean Platelet Volume 10.7 fL (9.4-12.3); Monocytes Absolute Auto 0.7 X10*3/uL (0.1-1.2); Neutrophils Absolute Auto 5.6 x10*3/uL (2.0-8.3); Neutrophils Percent Auto 70.6 % (45-73); Platelet Count 207 X10*3/uL (160-400); Red Blood Count 2.73 X10*6/uL (4.20-5.50); Red Cell Distribution Width 16.5 % (11.0-16.0); White Blood Count 7.9 X10*3/uL (4.8-10.8)
[2021-11-23 06:20] LABS: Anion Gap 15 (12-20); Blood Urea Nitrogen 38 mg/dL (9-16); Calcium 9.4 mg/dL (8.4-10.2); Carbon Dioxide 25 mmol/L (22-29); Chloride 100 mmol/L (96-108); Creatinine Clr Calc Pharmacy 21.8; Estimated Glomerular Filt Rate 25; Glucose Random 144 mg/dL (60-115); Potassium 5.2 mmol/L (3.3-5.1); Sodium 135 mmol/L (135-145)
--- NOTE | 2021-11-23 06:37 | P.HPHOSP_ITS ---
History of Present Illness Date of Service: 11/23/21 Chief Complaint: Abnormal labs D 1-year-old female with past medical history of hypertension, hyperlipidemia, diabetes, history of DVT, vitamin-D deficiency, renal artery stenosis, PVD, multiple sclerosis, wheelchair-bound, CKD, history of breast cancer, history of chronic anemia, who presents to the hospital from [facility] for labs specifically worsening anemia with a hemoglobin of 6.1. Patient is a poor historian but reports that she has not had any bloody stool, no bloody vomiting, no abdominal pain nausea or vomiting, no diarrhea constipation, no urinary symptoms. She denies having any chest pain, shortness of breath, no dizziness, no headache, no change in vision. On arrival to the ED patient's vitals within normal limit Labs are significant for WBC count of 7.9, hemoglobin was found to be 6.4, hematocrit of 20.4, potassium 5.4, BUN of 46 creatinine of 2.32 with a baseline of around 31 and 1.4 respectively UA positive, Patient given 1 unit of PRBC with improvement of her hemoglobin to 8.4, she also received Lokelma 10. Patient will be admitted for further management Review of Systems Review of Systems: Yes all other systems are reviewed and are negative PMFSH Medical History Anemia Breast cancer Chronic kidney disease Diabetes Diabetic nephropathy DVT (deep venous thrombosis) Hypercholesterolemia Hypertension Multiple sclerosis Peripheral vascular disease Poor historian Renal artery stenosis Vitamin D deficiency Family History Father Hypertension Chronic kidney failure Mother Hypertension Diabetes Brother CKD (chronic kidney disease) Brother Gunshot wound Sister Throat cancer Son No problems noted. Daughter No problems noted. Surgical History H/O colonoscopy H/O total mastectomy of left breast History of breast lump/mass excision History of intravascular stent placement Social History Household Members: None Housing: House Are you a primary healthcare technician to a significant other at home: No Do you presently have visiting nurse or other home services: No Alcohol intake: never Patient Tobacco Use Status: Former Tobacco user Quit Date: as teenager Tobacco use type: Cigarette e-Cigarette/Vaping Use: Never Used Second Hand Smoke Exposure: No Advance Directives: Yes Advance Directives on File: Yes Advance Directives Date on File: 08/08/21 service: No Current occupational status: retired Meds Allergies Allergy/AdvReac Type Severity Reaction Status Date / Time No Known Allergies Allergy Verified 10/17/21 15:27 Active Medications: Current Medications Acetaminophen (Acetaminophen 325 Mg Tablet) 650 mg PO Q6H PRN PRN Reason: Pain, Mild (Pain Scale 1-3) Docusate Sodium (Docusate Sodium 100 Mg Capsule) 100 mg PO DAILY PRN PRN Reason: Constipation Ceftriaxone Sodium 1 gm/ (Sodium Chloride) 50 mls @ 100 mls/hr IV Q24H [facility] Last Admin: 11/23/21 06:03 Dose: 100 mls/hr Documented by: Sodium Chloride (Ns) 1,000 mls @ 100 mls/hr IVCONT .Q10H [facility] Last Admin: 11/23/21 06:04 Dose: 100 mls/hr Documented by: Ondansetron HCl (Ondansetron Hcl 4 Mg/2 Ml Vial) 4 mg IVPUSH Q8H PRN PRN Reason: Nausea and Vomiting Sodium Chloride (0.9 % Sodium Chloride Flush 3 Ml Syringe) 3 ml IVFLUSH QSHIFT [facility] Home Medications Medication Instructions Recorded Confirmed Last Taken Type aspirin 81 mg tablet,delayed 81 mg PO DAILY 08/08/20 11/23/21 11/02/21 History release (Adult Aspirin Regimen) sennosides 8.6 mg-docusate sodium 1 tab-cap PO BEDTIME 08/08/20 11/23/21 11/01/21 History 50 mg capsule (Senna Plus) Physical Exam Vital Signs and Narrative: Vital Signs: Last Vital Signs Temp 98.2 F 11/23/21 02:33 Pulse 100 11/23/21 02:33 Resp 25 H 11/23/21 02:33 BP 130/61 11/23/21 02:33 Pulse Ox 100 11/23/21 02:33 BMI result Body Mass Index 20.8 Const: Other: Poor historian General: cooperative and no acute distress Eyes: General: appearance normal, both eyes and all related structures Pupils: Equal, round and reactive pupils present Resp: Effort & Inspection: normal respiratory effort Auscultation: clear to auscultation bilaterally Cardio: Rate: regular rate Rhythm: regular rhythm GI: Palpation (GI): Soft to palpation Auscultation: normal bowel sounds Skin: General skin exam: no rashes or lesions noted Neuro: Cranial nerves: Yes Equal, round and reactive pupils present Cognition (Neuro): normal cognition Extrem: General: Yes normal to inspection and Yes no pedal edema Results Labs CBC and Chem 7: 11/23/21 05:57 11/23/21 05:57 Labs: Laboratory Results - last 24 hr 11/22/21 11/22/21 11/22/21 17:39 17:39 17:39 MCV 95.3 MCH 29.6 MCHC 31.1 RDW 17.5 H Plt Count 216 MPV 10.7 Immature Gran % (Auto) 0.7 H Neut % (Auto) 69.2 Lymph % (Auto) 15.3 L Andrews % (Auto) 13.0 H Eos % (Auto) 1.5 Baso % (Auto) 0.3 Lymph # (Auto) 1.4 Andrews # (Auto) 1.2 Eos # (Auto) 0.1 Baso # (Auto) 0.0 Abs Immat Gran (auto) 0.06 H Absolute Neuts (auto) 6.2 Absolute Nucleated RBC 0.020 H Nucleated RBC % (auto) 0.2 Anion Gap 15 Estim Creat Clear Calc 18.0 Estimated GFR 20 Random Glucose 177 H Calcium 10.1 D Magnesium 2.4 Total Bilirubin 0.3 AST 13 D ALT 15 Alkaline Phosphatase 66 D Total Creatine Kinase Troponin I High Sens 6.5 Total Protein 6.3 L Albumin 3.0 L Urine Color Urine Appearance Urine pH Ur Specific [place] Urine Protein Urine Glucose (UA) Urine Ketones Urine Blood Urine Nitrite Ur Leukocyte Esterase Urine RBC Urine WBC Urine WBC Clumps Ur Squamous Epith Cells Urine Bacteria Stool Occult Blood COVID-19 (TERE) COVID-19 Clin Com Blood Type Antibody Screen Crossmatch 11/22/21 11/22/21 11/22/21 17:39 17:39 17:39 MCV MCH MCHC RDW Plt Count MPV Immature Gran % (Auto) Neut % (Auto) Lymph % (Auto) Andrews % (Auto) Eos % (Auto) Baso % (Auto) Lymph # (Auto) Andrews # (Auto) Eos # (Auto) Baso # (Auto) Abs Immat Gran (auto) Absolute Neuts (auto) Absolute Nucleated RBC Nucleated RBC % (auto) Anion Gap Estim Creat Clear Calc Estimated GFR Random Glucose Calcium Magnesium Total Bilirubin AST ALT Alkaline Phosphatase Total Creatine Kinase Troponin I High Sens Total Protein Albumin Urine Color Urine Appearance Urine pH Ur Specific [place] Urine Protein Urine Glucose (UA) Urine Ketones Urine Blood Urine Nitrite Ur Leukocyte Esterase Urine RBC Urine WBC Urine WBC Clumps Ur Squamous Epith Cells Urine Bacteria Stool Occult Blood NEGATIVE COVID-19 (TERE) Negative COVID-19 Clin Com See Note Blood Type A Positive Antibody Screen NEGATIVE Crossmatch See Detail 11/22/21 11/22/21 11/23/21 21:30 21:30 01:52 MCV 94.4 94.9 MCH 29.6 31.0 MCHC 31.4 32.7 RDW 17.5 H 16.3 H Plt Count 209 211 MPV 9.7 10.0 Immature Gran % (Auto) 0.6 H 0.5 H Neut % (Auto) 64.6 63.1 Lymph % (Auto) 20.4 20.9 Andrews % (Auto) 11.3 H 11.0 Eos % (Auto) 2.9 4.2 H Baso % (Auto) 0.2 0.3 Lymph # (Auto) 1.8 1.8 Andrews # (Auto) 1.0 1.0 Eos # (Auto) 0.3 0.4 Baso # (Auto) 0.0 0.0 Abs Immat Gran (auto) 0.05 H 0.04 H Absolute Neuts (auto) 5.8 5.4 Absolute Nucleated RBC 0.000 0.000 Nucleated RBC % (auto) 0.0 0.0 Anion Gap 14 Estim Creat Clear Calc 19.9 Estimated GFR 22 Random Glucose 131 H Calcium 9.6 Magnesium Total Bilirubin 0.4 AST 13 ALT 16 Alkaline Phosphatase 62 Total Creatine Kinase 24 L D Troponin I High Sens Total Protein 6.0 L Albumin 2.8 L Urine Color Urine Appearance Urine pH Ur Specific [place] Urine Protein Urine Glucose (UA) Urine Ketones Urine Blood Urine Nitrite Ur Leukocyte Esterase Urine RBC Urine WBC Urine WBC Clumps Ur Squamous Epith Cells Urine Bacteria Stool Occult Blood COVID-19 (TERE) COVID-19 Clin Com Blood Type Antibody Screen Crossmatch 11/23/21 11/23/21 11/23/21 01:52 04:46 05:57 MCV 95.2 MCH 30.8 MCHC 32.3 RDW 16.5 H Plt Count 207 MPV 10.7 Immature Gran % (Auto) 0.6 H Neut % (Auto) 70.6 Lymph % (Auto) 16.2 L Andrews % (Auto) 9.0 Eos % (Auto) 3.3 Baso % (Auto) 0.3 Lymph # (Auto) 1.3 Andrews # (Auto) 0.7 Eos # (Auto) 0.3 Baso # (Auto) 0.0 Abs Immat Gran (auto) 0.05 H Absolute Neuts (auto) 5.6 Absolute Nucleated RBC 0.000 Nucleated RBC % (auto) 0.0 Anion Gap 13 Estim Creat Clear Calc 20.3 Estimated GFR 23 Random Glucose 137 H Calcium 9.6 Magnesium Total Bilirubin 1.0 AST 14 ALT 14 Alkaline Phosphatase 66 Total Creatine Kinase Troponin I High Sens Total Protein 6.2 L Albumin 2.9 L Urine Color YELLOW Urine Appearance CLOUDY Urine pH 8.0 Ur Specific [place] 1.020 Urine Protein 2+ H Urine Glucose (UA) NEG Urine Ketones NEG Urine Blood 1+ H Urine Nitrite POS H Ur Leukocyte Esterase 2+ H Urine RBC 0-2 Urine WBC 30-49 H Urine WBC Clumps NOTED Ur Squamous Epith Cells NONE Urine Bacteria 4+ Stool Occult Blood COVID-19 (TERE) COVID-19 InferX Blood Type Antibody Screen Crossmatch 11/23/21 05:57 MCV MCH MCHC RDW Plt Count MPV Immature Gran % (Auto) Neut % (Auto) Lymph % (Auto) Andrews % (Auto) Eos % (Auto) Baso % (Auto) Lymph # (Auto) Andrews # (Auto) Eos # (Auto) Baso # (Auto) Abs Immat Gran (auto) Absolute Neuts (auto) Absolute Nucleated RBC Nucleated RBC % (auto) Anion Gap 15 Estim Creat Clear Calc 21.8 Estimated GFR 25 Random Glucose 144 H Calcium 9.4 Magnesium Total Bilirubin AST ALT Alkaline Phosphatase Total Creatine Kinase Troponin I High Sens Total Protein Albumin Urine Color Urine Appearance Urine pH Ur Specific [place] Urine Protein Urine Glucose (UA) Urine Ketones Urine Blood Urine Nitrite Ur Leukocyte Esterase Urine RBC Urine WBC Urine WBC Clumps Ur Squamous Epith Cells Urine Bacteria Stool Occult Blood COVID-19 (TERE) COVID-19 InferX Blood Type Antibody Screen Crossmatch Assessment and Plan (1) Acute anemia: Status: Acute (2) Acute hyperkalemia: Status: Acute (3) UTI (urinary tract infection): Status: Acute (4) Acute on chronic kidney failure: Status: Acute Plan 81-year-old female with extensive past medical history as a pension above including CKD, chronic anemia presents to the hospital with abnormal labs found to have acute anemia, as well as hyperkalemia # acute on chronic normocytic anemia - likely 2/2 anemia of chronic ds - occult stool blood -ve - HDS - s/p 1 PRBC transfusion with improvement of Hgb to >8 - follow CBC # CHIDI on CKD - with secondary to dehydration versus UTI - will treat with IV fluids - baseline around 1.43 - follow BMP # hyperkalemia - secondary to above - received Lokelma - no EKG changes - follow BMP # UTI - positive UA - will treat with IV antibiotics - follow cultures # diabetes - low-dose sliding scale insulin - diabetic diet # hypertension - stable - continue antihypertensive DVT prophylaxis: Heparin subQ as the anemia likely not due to acute blood loss Quality Stroke Does the patient have a stroke diagnosis?: No VTE Prior VTE?: No VTE Risk Level:: Medical - moderate - high VTE Device Contraindication: N/A - Device Ordered VTE Drug Contraindication: Treatment Not Indicated
--- NOTE | 2021-11-23 07:15 | PHA.MEDREC ---
Pharmacy Consult ? Medication Reconciliation Pharmacy has reviewed the medication reconciliation completed by Dwight. There are no remarkable issues for provider's attention. Bettie Avila, JingD
[2021-11-23 07:29] LABS: Glucose, Whole Blood 126 mg/dL (60-115)
[2021-11-23] MEDS: Heparin Sodium,Porcine 5,000 UNIT/ML VIAL 5000 UNIT SUBCUT ×2 (07:42→18:43)
[2021-11-23] MEDS: Aspirin Enteric Coated 81 MG TABLET.DR PO (07:42)
[2021-11-23] MEDS: amLODIPine Besylate 5 MG TABLET PO (07:42)
[2021-11-23] MEDS: Cholecalciferol (Vitamin D3) 25 MCG TABLET 50 MCG PO (07:42)
[2021-11-23] MEDS: Tamoxifen Citrate 10 MG TABLET 20 MG PO (08:50)
[2021-11-23 13:46] LABS: Glucose, Whole Blood 106 mg/dL (60-115)
[2021-11-23 14:09] LABS: Potassium 4.6 mmol/L (3.3-5.1)
[2021-11-23 15:28] LABS: Glucose, Whole Blood 158 mg/dL (60-115)
--- NOTE | 2021-11-23 15:56 | HO.PM.IMPN ---
Subjective Subjective Date of Service: 11/23/21 Interval History: seen and examined this morning follow up for hyperkalemia, UTI no specific complaints this morning Review of Systems Review of Systems: Yes all other systems are reviewed and are negative Constitutional Constitutional: Denies chills and Denies fever(s) Cardiovascular Cardiovascular: Denies chest pain, Denies palpitations and Denies dyspnea Respiratory Respiratory: Denies cough and Denies dyspnea Gastrointestinal Gastrointestinal: Denies abdominal pain, Denies diarrhea, Denies nausea and Denies vomiting Endocrine Endocrine: Denies palpitations Physical Exam Vital Signs: Vital Signs: Last Vital Signs Temp 99.0 F 11/23/21 15:09 Pulse 83 11/23/21 15:09 Resp 18 11/23/21 15:09 BP 120/56 L 11/23/21 15:09 Pulse Ox 96 11/23/21 15:09 BMI result Body Mass Index 20.8 Const: General: cooperative, comfortable, alert and awake Nutritional Appearance: thin Resp: Effort & Inspection: normal respiratory effort and able to speak in complete sentences Cardio: Rate: regular rate Heart sounds: S1 normal heart sound present and S2 normal heart sound present GI: Inspection: No distended Palpation (GI): Soft to palpation Neuro: Other: grossly intact; able to move all 4 extremities spontaneously Extrem: General: Yes no pedal edema Objective Data Active Medications Acetaminophen (Acetaminophen 325 Mg Tablet) 650 mg PO Q6H PRN PRN Reason: Pain, Mild (Pain Scale 1-3) Amlodipine Besylate (Amlodipine Besylate 5 Mg Tablet) 5 mg PO DAILY [facility]; Protocol Last Admin: 11/23/21 07:42 Dose: 5 mg Documented by: ADRIANA Aspirin (Aspirin Enteric Coated 81 Mg Tablet.) 81 mg PO DAILY [facility] Last Admin: 11/23/21 07:42 Dose: 81 mg Documented by: ADRIANA Dextrose (Dextrose 50 % 25 Gm/50 Ml Syringe) 25 gm IVPUSH Q15M PRN; Protocol PRN Reason: per Hypoglycemia Standing Ord. Docusate Sodium (Docusate Sodium 100 Mg Capsule) 100 mg PO DAILY PRN PRN Reason: Constipation Glucose (Glucose Gel 15 Gm Gel..Gram.) 15 gm PO Q15M PRN; Protocol PRN Reason: per Hypoglycemia Standing Ord. Heparin Sodium (Porcine) (Heparin Sodium,Porcine 5,000 Unit/Ml Vial) 5,000 unit SUBCUT Q12H [facility] Last Admin: 11/23/21 07:42 Dose: 5,000 unit Documented by: ADRIANA Ceftriaxone Sodium 1 gm/ (Sodium Chloride) 50 mls @ 100 mls/hr IV Q24H [facility] Last Infusion: 11/23/21 06:30 Dose: 0 mls/hr Documented by: ADRIANA Sodium Chloride (Ns) 1,000 mls @ 100 mls/hr IVCONT .Q10H [facility] Last Admin: 11/23/21 06:04 Dose: 100 mls/hr Documented by: CAROLIN Insulin Human Lispro (Insulin Lispro 100 Unit/Ml 3 Ml Vial) 0 unit SUBCUT QIDACHS [facility]; Protocol Last Admin: 11/23/21 13:45 Dose: Not Given Documented by: ADRIANA Non-Admin Reason: No Insulin Coverage Ondansetron HCl (Ondansetron Hcl 4 Mg/2 Ml Vial) 4 mg IVPUSH Q8H PRN PRN Reason: Nausea and Vomiting Sodium Chloride (0.9 % Sodium Chloride Flush 3 Ml Syringe) 3 ml IVFLUSH QSHIFT [facility] Last Admin: 11/23/21 14:52 Dose: Not Given Documented by: EJ Non-Admin Reason: IV Running Tamoxifen Citrate (Tamoxifen Citrate 10 Mg Tablet) 20 mg PO DAILY [facility] Last Admin: 11/23/21 08:50 Dose: 20 mg Documented by: ADRIANA Vitamin D (Cholecalciferol (Vitamin D3) 25 Mcg Tablet) 50 mcg PO DAILY [facility] Last Admin: 11/23/21 07:42 Dose: 50 mcg Documented by: ADRIANA Labs CBC & Chem 7: 11/23/21 05:57 11/23/21 13:51 Labs: Laboratory Results - last 24 hr 11/22/21 11/22/21 11/22/21 17:39 17:39 17:39 MCV 95.3 MCH 29.6 MCHC 31.1 RDW 17.5 H Plt Count 216 MPV 10.7 Immature Gran % (Auto) 0.7 H Neut % (Auto) 69.2 Lymph % (Auto) 15.3 L [place] % (Auto) 13.0 H Eos % (Auto) 1.5 Baso % (Auto) 0.3 Lymph # (Auto) 1.4 [place] # (Auto) 1.2 Eos # (Auto) 0.1 Baso # (Auto) 0.0 Abs Immat Gran (auto) 0.06 H Absolute Neuts (auto) 6.2 Absolute Nucleated RBC 0.020 H Nucleated RBC % (auto) 0.2 Smear Path Review Anion Gap 15 Creatinine 2.32 H Estim Creat Clear Calc 18.0 Estimated GFR 20 POC Glucose Random Glucose 177 H Calcium 10.1 D Magnesium 2.4 Total Bilirubin 0.3 AST 13 D ALT 15 Alkaline Phosphatase 66 D Total Creatine Kinase Troponin I High Sens 6.5 Total Protein 6.3 L Albumin 3.0 L Urine Color Urine Appearance Urine pH Ur Specific [place] Urine Protein Urine Glucose (UA) Urine Ketones Urine Blood Urine Nitrite Ur Leukocyte Esterase Urine RBC Urine WBC Urine WBC Clumps Ur Squamous Epith Cells Urine Bacteria Stool Occult Blood COVID-19 (TERE) COVID-19 Clin Com Blood Type Antibody Screen Crossmatch 11/22/21 11/22/21 11/22/21 17:39 17:39 17:39 MCV MCH MCHC RDW Plt Count MPV Immature Gran % (Auto) Neut % (Auto) Lymph % (Auto) [place] % (Auto) Eos % (Auto) Baso % (Auto) Lymph # (Auto) [place] # (Auto) Eos # (Auto) Baso # (Auto) Abs Immat Gran (auto) Absolute Neuts (auto) Absolute Nucleated RBC Nucleated RBC % (auto) Smear Path Review Anion Gap Creatinine Estim Creat Clear Calc Estimated GFR POC Glucose Random Glucose Calcium Magnesium Total Bilirubin AST ALT Alkaline Phosphatase Total Creatine Kinase Troponin I High Sens Total Protein Albumin Urine Color Urine Appearance Urine pH Ur Specific [place] Urine Protein Urine Glucose (UA) Urine Ketones Urine Blood Urine Nitrite Ur Leukocyte Esterase Urine RBC Urine WBC Urine WBC Clumps Ur Squamous Epith Cells Urine Bacteria Stool Occult Blood NEGATIVE COVID-19 (TERE) Negative COVID-19 Clin Com See Note Blood Type A Positive Antibody Screen NEGATIVE Crossmatch See Detail 11/22/21 11/22/21 11/23/21 21:30 21:30 01:52 MCV 94.4 94.9 MCH 29.6 31.0 MCHC 31.4 32.7 RDW 17.5 H 16.3 H Plt Count 209 211 MPV 9.7 10.0 Immature Gran % (Auto) 0.6 H 0.5 H Neut % (Auto) 64.6 63.1 Lymph % (Auto) 20.4 20.9 [place] % (Auto) 11.3 H 11.0 Eos % (Auto) 2.9 4.2 H Baso % (Auto) 0.2 0.3 Lymph # (Auto) 1.8 1.8 [place] # (Auto) 1.0 1.0 Eos # (Auto) 0.3 0.4 Baso # (Auto) 0.0 0.0 Abs Immat Gran (auto) 0.05 H 0.04 H Absolute Neuts (auto) 5.8 5.4 Absolute Nucleated RBC 0.000 0.000 Nucleated RBC % (auto) 0.0 0.0 Smear Path Review SEE NOTE Anion Gap 14 Creatinine 2.11 H Estim Creat Clear Calc 19.9 Estimated GFR 22 POC Glucose Random Glucose 131 H Calcium 9.6 Magnesium Total Bilirubin 0.4 AST 13 ALT 16 Alkaline Phosphatase 62 Total Creatine Kinase 24 L D Troponin I High Sens Total Protein 6.0 L Albumin 2.8 L Urine Color Urine Appearance Urine pH Ur Specific [place] Urine Protein Urine Glucose (UA) Urine Ketones Urine Blood Urine Nitrite Ur Leukocyte Esterase Urine RBC Urine WBC Urine WBC Clumps Ur Squamous Epith Cells Urine Bacteria Stool Occult Blood COVID-19 (TERE) COVID-19 Clin Com Blood Type Antibody Screen Crossmatch 11/23/21 11/23/21 11/23/21 01:52 04:46 05:57 MCV 95.2 MCH 30.8 MCHC 32.3 RDW 16.5 H Plt Count 207 MPV 10.7 Immature Gran % (Auto) 0.6 H Neut % (Auto) 70.6 Lymph % (Auto) 16.2 L [place] % (Auto) 9.0 Eos % (Auto) 3.3 Baso % (Auto) 0.3 Lymph # (Auto) 1.3 [place] # (Auto) 0.7 Eos # (Auto) 0.3 Baso # (Auto) 0.0 Abs Immat Gran (auto) 0.05 H Absolute Neuts (auto) 5.6 Absolute Nucleated RBC 0.000 Nucleated RBC % (auto) 0.0 Smear Path Review Anion Gap 13 Creatinine 2.06 H Estim Creat Clear Calc 20.3 Estimated GFR 23 POC Glucose Random Glucose 137 H Calcium 9.6 Magnesium Total Bilirubin 1.0 AST 14 ALT 14 Alkaline Phosphatase 66 Total Creatine Kinase Troponin I High Sens Total Protein 6.2 L Albumin 2.9 L Urine Color YELLOW Urine Appearance CLOUDY Urine pH 8.0 Ur Specific [place] 1.020 Urine Protein 2+ H Urine Glucose (UA) NEG Urine Ketones NEG Urine Blood 1+ H Urine Nitrite POS H Ur Leukocyte Esterase 2+ H Urine RBC 0-2 Urine WBC 30-49 H Urine WBC Clumps NOTED Ur Squamous Epith Cells NONE Urine Bacteria 4+ Stool Occult Blood COVID-19 (TERE) COVID-19 Clin Com Blood Type Antibody Screen Crossmatch 11/23/21 11/23/21 11/23/21 05:57 07:08 13:43 MCV MCH MCHC RDW Plt Count MPV Immature Gran % (Auto) Neut % (Auto) Lymph % (Auto) [place] % (Auto) Eos % (Auto) Baso % (Auto) Lymph # (Auto) [place] # (Auto) Eos # (Auto) Baso # (Auto) Abs Immat Gran (auto) Absolute Neuts (auto) Absolute Nucleated RBC Nucleated RBC % (auto) Smear Path Review Anion Gap 15 Creatinine 1.92 H Estim Creat Clear Calc 21.8 Estimated GFR 25 POC Glucose 126 H 106 Random Glucose 144 H Calcium 9.4 Magnesium Total Bilirubin AST ALT Alkaline Phosphatase Total Creatine Kinase Troponin I High Sens Total Protein Albumin Urine Color Urine Appearance Urine pH Ur Specific [place] Urine Protein Urine Glucose (UA) Urine Ketones Urine Blood Urine Nitrite Ur Leukocyte Esterase Urine RBC Urine WBC Urine WBC Clumps Ur Squamous Epith Cells Urine Bacteria Stool Occult Blood COVID-19 (TERE) COVID-19 Clin Com Blood Type Antibody Screen Crossmatch 11/23/21 15:13 MCV MCH MCHC RDW Plt Count MPV Immature Gran % (Auto) Neut % (Auto) Lymph % (Auto) [place] % (Auto) Eos % (Auto) Baso % (Auto) Lymph # (Auto) [place] # (Auto) Eos # (Auto) Baso # (Auto) Abs Immat Gran (auto) Absolute Neuts (auto) Absolute Nucleated RBC Nucleated RBC % (auto) Smear Path Review Anion Gap Creatinine Estim Creat Clear Calc Estimated GFR POC Glucose 158 H Random Glucose Calcium Magnesium Total Bilirubin AST ALT Alkaline Phosphatase Total Creatine Kinase Troponin I High Sens Total Protein Albumin Urine Color Urine Appearance Urine pH Ur Specific [place] Urine Protein Urine Glucose (UA) Urine Ketones Urine Blood Urine Nitrite Ur Leukocyte Esterase Urine RBC Urine WBC Urine WBC Clumps Ur Squamous Epith Cells Urine Bacteria Stool Occult Blood COVID-19 (TERE) COVID-19 Clin Com Blood Type Antibody Screen Crossmatch Assessment and Plan (1) UTI (urinary tract infection): Status: Acute (2) Acute hyperkalemia: Status: Acute Plan 81-year-old female with extensive past medical history as a pension above including CKD, chronic anemia presents to the hospital with abnormal labs found to have acute anemia, as well as hyperkalemia acute on chronic normocytic anemia likely 2/2 anemia of chronic ds - occult stool blood -ve - s/p 1 PRBC transfusion with improvement of Hgb to >8 - follow CBC CHIDI on CKD4 secondary to dehydration versus UTI creatinine trending down - continue IVF - baseline around 1.43 - follow BMP hyperkalemia secondary to CHIDI - received Lokelma - no EKG changes - follow BMP UTI continue IV ceftriaxone - follow urine cultures diabetes - low-dose sliding scale insulin - diabetic diet hypertension - stable - continue Norvasc h/o breast CA continue tamoxifen DVT prophylaxis: Heparin subQ as the anemia likely not due to acute blood loss attending: dr. novak Dispo: Physical therapy recommends return to SNF when medically stable Patient requires ongoing inpatient stay secondary to hyperkalemia, UTI need for IV antibiotics, CHIDI Quality Stroke Does the patient have a stroke diagnosis?: No VTE Prior VTE?: No VTE Risk Level:: Medical - moderate - high VTE Device Contraindication: N/A - Device Ordered VTE Drug Contraindication: Treatment Not Indicated
--- NOTE | 2021-11-23 16:07 | MHC.CLN ---
NUTRITION CONSULT FOR DECREASED PO. CHANGED DIET TO DIABETIC 2000 KCAL PER PRIOR ADMISSION. ADDED GLUCERNA BID TO PROVIDE ADDITIONAL 474 KCALS, 20 G PROTEIN. 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
--- NOTE | 2021-11-23 16:13 | MHC.CM.PN ---
Addendum entered by Juhi Mckeon 11/24/21 16:05: VM MESSAGE LEFT FOR PTS SON/HCP, [facility] [phone] INFORMING HIM OF PTS MEDICARE RIGHTS. COPY OF IMM SENT TO [facility], ORIGINAL WILL BE MAILED TO [facility]. PT HAS A HCP ON FILE PCP: JADEN DAMIAN PT IS COVID-19 VACCINATED AND BOOSTED CURRENT [facility] Original Note: PT CAME IN FROM [facility]. PT ,MAY BE CLEARED TO DC OVER THE WEEKEND HOWEVER WILL NEED TO BE SKILLED INTO STR AGAIN AND [facility] INDICATED [facility] WILL NOT HAVE A BED OVER THE WEEKEND
[2021-11-23] MEDS: Insulin Lispro 100 UNIT/ML 3 ML VIAL SUBCUT (16:45)
[2021-11-23 19:48] LABS: Glucose, Whole Blood 111 mg/dL (60-115)
[2021-11-24] MEDS: 0.9 % Sodium Chloride 1,000 ML 100 ML IVCONT (01:58)
[2021-11-24 04:00] VITALS: BP 147/66; PULSE 89; RESP 18; TEMP 36.4; O2SAT 99
[2021-11-24] MEDS: Heparin Sodium,Porcine 5,000 UNIT/ML VIAL 5000 UNIT SUBCUT ×2 (05:50→17:22)
[2021-11-24] MEDS: cefTRIAXone sodium 1 GM in 0.9 % Sodium Chloride 50 ML IV (05:51)
[2021-11-24 06:10] LABS: Hematocrit 26.3 % (37.0-47.0); Hemoglobin 8.3 g/dl (12.0-16.0); Mean Corpuscular HGB Conc 31.6 g/dl (31.0-35.0); Mean Corpuscular Hemoglobin 30.4 pg (27.0-33.0); Mean Corpuscular Volume 96.3 fL (80.0-98.0); Mean Platelet Volume 10.8 fL (9.4-12.3); NRBC Pct Auto 0.3 /100WBC (0.0-0.2); Platelet Count 177 X10*3/uL (160-400); Red Blood Count 2.73 X10*6/uL (4.20-5.50); Red Cell Distribution Width 16.5 % (11.0-16.0)
[2021-11-24 06:11] LABS: WBC ABN SCTR FOR CBC 1
[2021-11-24 06:12] LABS: White Blood Count 6.6 X10*3/uL (4.8-10.8)
[2021-11-24 06:50] LABS: Anion Gap 17 (12-20); Blood Urea Nitrogen 29 mg/dL (9-16); Calcium 8.7 mg/dL (8.4-10.2); Carbon Dioxide 20 mmol/L (22-29); Chloride 105 mmol/L (96-108); Creatinine Clr Calc Pharmacy 28.6; Estimated Glomerular Filt Rate 34; Glucose Random 125 mg/dL (60-115); Iron 53 mcg/dL (30-160); Percent Iron Saturation 34 % (15-50); Potassium 4.5 mmol/L (3.3-5.1); Sodium 137 mmol/L (135-145); Total Iron Binding Capacity 155 mcg/dL (228-428); Unsaturated Iron Binding 102 ug/dL
[2021-11-24 07:11] VITALS: BP 137/87; PULSE 92; RESP 18; TEMP 37.1; O2SAT 100
[2021-11-24 07:39] LABS: Glucose, Whole Blood 123 mg/dL (60-115)
--- NOTE | 2021-11-24 09:25 | MHC.CM.PN ---
Addendum entered by Annita Cotto RN 11/24/21 09:30: UPDATED CLINICALS AND PT EVAL SENT TO SNF [facility]IA [facility]. Original Note: PER [facility] ARE UNABLE TO TAKE PT BACK UNITL Friday11/26/21, PT WILL REMAIN INPT OVER W/E UNTIL SHE IS ABLE TO RETURN TO SNF.
[2021-11-24] MEDS: amLODIPine Besylate 5 MG TABLET PO (09:27)
[2021-11-24] MEDS: Aspirin Enteric Coated 81 MG TABLET.DR PO (09:27)
[2021-11-24] MEDS: Cholecalciferol (Vitamin D3) 25 MCG TABLET 50 MCG PO (09:27)
[2021-11-24] MEDS: 0.9 % Sodium Chloride Flush 3 ML SYRINGE IVFLUSH ×3 (09:27→23:18)
[2021-11-24] MEDS: Tamoxifen Citrate 10 MG TABLET 20 MG PO (09:27)
[2021-11-24 11:21] VITALS: BP 134/68; PULSE 83; RESP 20; TEMP 37.1; O2SAT 100
[2021-11-24 11:59] LABS: Glucose, Whole Blood 139 mg/dL (60-115)
--- NOTE | 2021-11-24 13:46 | P.PNIM_ITS ---
Subjective Subjective Date of Service: 11/24/21 Interval History: seen and examined this morning follow up for hyperkalemia No overnight events feeling well this morning Review of Systems Review of Systems: Yes all other systems are reviewed and are negative Constitutional Constitutional: Denies chills and Denies fever(s) Cardiovascular Cardiovascular: Denies chest pain, Denies palpitations and Denies dyspnea Respiratory Respiratory: Denies cough and Denies dyspnea Gastrointestinal Gastrointestinal: Denies abdominal pain, Denies diarrhea, Denies nausea and Denies vomiting Endocrine Endocrine: Denies palpitations Physical Exam Vital Signs: Vital Signs: Last Vital Signs Temp 98.7 F 11/24/21 11:21 Pulse 83 11/24/21 11:21 Resp 20 11/24/21 11:21 BP 134/68 11/24/21 11:21 Pulse Ox 100 11/24/21 11:21 BMI result Body Mass Index 20.8 Const: General: cooperative, comfortable, alert and awake Nutritional Appearance: thin Resp: Effort & Inspection: normal respiratory effort and able to speak in complete sentences Cardio: Rate: regular rate Heart sounds: S1 normal heart sound present and S2 normal heart sound present GI: Inspection: No distended Palpation (GI): Soft to palpation Neuro: Other: grossly intact; able to move all 4 extremities spontaneously Extrem: General: Yes no pedal edema Objective Data Active Medications Acetaminophen (Acetaminophen 325 Mg Tablet) 650 mg PO Q6H PRN PRN Reason: Pain, Mild (Pain Scale 1-3) Amlodipine Besylate (Amlodipine Besylate 5 Mg Tablet) 5 mg PO DAILY [facility]; Protocol Last Admin: 11/24/21 09:27 Dose: 5 mg Documented by: NAVEED Aspirin (Aspirin Enteric Coated 81 Mg Tablet.) 81 mg PO DAILY [facility] Last Admin: 11/24/21 09:27 Dose: 81 mg Documented by: NAVEED Dextrose (Dextrose 50 % 25 Gm/50 Ml Syringe) 25 gm IVPUSH Q15M PRN; Protocol PRN Reason: per Hypoglycemia Standing Ord. Docusate Sodium (Docusate Sodium 100 Mg Capsule) 100 mg PO DAILY PRN PRN Reason: Constipation Glucose (Glucose Gel 15 Gm Gel..Gram.) 15 gm PO Q15M PRN; Protocol PRN Reason: per Hypoglycemia Standing Ord. Heparin Sodium (Porcine) (Heparin Sodium,Porcine 5,000 Unit/Ml Vial) 5,000 unit SUBCUT Q12H [facility] Last Admin: 11/24/21 05:50 Dose: 5,000 unit Documented by: NAVEED Ceftriaxone Sodium 1 gm/ (Sodium Chloride) 50 mls @ 100 mls/hr IV Q24H [facility] Last Infusion: 11/24/21 06:23 Dose: 0 mls/hr Documented by: NAVEED Insulin Human Lispro (Insulin Lispro 100 Unit/Ml 3 Ml Vial) 0 unit SUBCUT QIDACHS [facility]; Protocol Last Admin: 11/24/21 12:01 Dose: Not Given Documented by: KOFFI Non-Admin Reason: No Insulin Coverage Ondansetron HCl (Ondansetron Hcl 4 Mg/2 Ml Vial) 4 mg IVPUSH Q8H PRN PRN Reason: Nausea and Vomiting Sodium Chloride (0.9 % Sodium Chloride Flush 3 Ml Syringe) 3 ml IVFLUSH QSHIFT [facility] Last Admin: 11/24/21 09:27 Dose: 3 ml Documented by: NAVEED Tamoxifen Citrate (Tamoxifen Citrate 10 Mg Tablet) 20 mg PO DAILY [facility] Last Admin: 11/24/21 09:27 Dose: 20 mg Documented by: NAVEED Vitamin D (Cholecalciferol (Vitamin D3) 25 Mcg Tablet) 50 mcg PO DAILY [facility] Last Admin: 11/24/21 09:27 Dose: 50 mcg Documented by: NAVEED Labs CBC & Chem 7: 11/24/21 05:34 11/24/21 05:34 Labs: Laboratory Results - last 24 hr 11/23/21 11/23/21 11/23/21 13:43 15:13 19:43 MCV MCH MCHC RDW Plt Count MPV Absolute Nucleated RBC Nucleated RBC % (auto) Anion Gap Estim Creat Clear Calc Estimated GFR POC Glucose 106 158 H 111 Random Glucose Calcium Iron TIBC % Saturation Unsat Iron Binding 11/24/21 11/24/21 11/24/21 05:34 05:34 07:14 MCV 96.3 MCH 30.4 MCHC 31.6 RDW 16.5 H Plt Count 177 MPV 10.8 Absolute Nucleated RBC 0.020 H Nucleated RBC % (auto) 0.3 H Anion Gap 17 Estim Creat Clear Calc 28.6 Estimated GFR 34 POC Glucose 123 H Random Glucose 125 H Calcium 8.7 D Iron 53 TIBC 155 L % Saturation 34 Unsat Iron Binding 102 11/24/21 11:24 MCV MCH MCHC RDW Plt Count MPV Absolute Nucleated RBC Nucleated RBC % (auto) Anion Gap Estim Creat Clear Calc Estimated GFR POC Glucose 139 H Random Glucose Calcium Iron TIBC % Saturation Unsat Iron Binding Microbiology Microbiology Results: Microbiology 11/23/21 17:01 Urine Culture - Preliminary Urine clean catch - Urine campbell top Gram negative artis Enterococcus/Streptococcus sp 11/23/21 Unknown Urine Culture - Preliminary Urine clean catch - Urine campbell top Gram negative artis Enterococcus/Streptococcus sp 11/23/21 05:57 Blood Culture - Preliminary Blood - Venous No growth after 24 hours. 11/23/21 05:57 Blood Culture - Preliminary Blood - Venous No growth after 24 hours. 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 back to baseline - follow BMP UTI urine culture growing GNR, enterococcus/streptococcus sp continue IV ceftriaxone d#2 BCx negative x 24 hours hyperkalemia secondary to CHIDI resolved with lokelnv diabetes - low-dose sliding scale insulin - diabetic diet hypertension - stable - continue Norvasc h/o breast CA continue tamoxifen DVT prophylaxis: Heparin subQ as the anemia likely not due to acute blood loss attending: dr. Chapa Dispo: Physical therapy recommends return to SNF when medically stable Patient requires ongoing inpatient stay secondary to UTI need for IV antibiotics, HCIDI Quality Stroke Does the patient have a stroke diagnosis?: No VTE Prior VTE?: No VTE Risk Level:: Medical - moderate - high VTE Device Contraindication: N/A - Device Ordered VTE Drug Contraindication: Treatment Not Indicated
[2021-11-24 15:08] VITALS: BP 136/61; PULSE 85; RESP 18; TEMP 37; O2SAT 100
[2021-11-24 15:58] LABS: Glucose, Whole Blood 136 mg/dL (60-115)
[2021-11-24 18:52] VITALS: BP 129/60; PULSE 88; RESP 18; TEMP 37.1; O2SAT 100
[2021-11-24 19:35] LABS: Glucose, Whole Blood 141 mg/dL (60-115)
[2021-11-24 23:34] VITALS: BP 127/58; PULSE 88; RESP 17; TEMP 37.2; O2SAT 96
[2021-11-25 03:57] VITALS: BP 139/67; PULSE 104; RESP 17; TEMP 37.1; O2SAT 100
[2021-11-25] MEDS: cefTRIAXone sodium 1 GM in 0.9 % Sodium Chloride 50 ML IV (05:29)
[2021-11-25] MEDS: Heparin Sodium,Porcine 5,000 UNIT/ML VIAL 5000 UNIT SUBCUT ×2 (05:30→18:25)
[2021-11-25 07:44] LABS: Glucose, Whole Blood 112 mg/dL (60-115)
[2021-11-25 07:49] LABS: Anion Gap 15 (12-20); Blood Urea Nitrogen 25 mg/dL (9-16); Calcium 8.5 mg/dL (8.4-10.2); Carbon Dioxide 25 mmol/L (22-29); Chloride 105 mmol/L (96-108); Creatinine Clr Calc Pharmacy 27.6; Estimated Glomerular Filt Rate 33; Glucose Random 123 mg/dL (60-115); Potassium 4.5 mmol/L (3.3-5.1); Sodium 140 mmol/L (135-145)
[2021-11-25 07:54] VITALS: BP 131/60; PULSE 95; RESP 18; TEMP 36.7; O2SAT 99
[2021-11-25] MEDS: Cholecalciferol (Vitamin D3) 25 MCG TABLET 50 MCG PO (09:21)
[2021-11-25] MEDS: 0.9 % Sodium Chloride Flush 3 ML SYRINGE IVFLUSH (09:22)
[2021-11-25] MEDS: Aspirin Enteric Coated 81 MG TABLET.DR PO (09:22)
[2021-11-25] MEDS: Tamoxifen Citrate 10 MG TABLET 20 MG PO (09:22)
[2021-11-25] MEDS: amLODIPine Besylate 5 MG TABLET PO (09:22)
[2021-11-25 11:20] LABS: Glucose, Whole Blood 131 mg/dL (60-115)
--- NOTE | 2021-11-25 11:56 | HO.PM.IMPN ---
Subjective Subjective Date of Service: 11/25/21 Interval History: seen and examined this morning follow up for UTI, hyperkalemia, anemia no bleeding no dysria, abdominal pain, nausea or vomiting do dizziness Constitutional Constitutional: Denies chills and Denies fever(s) Cardiovascular Cardiovascular: Denies chest pain, Denies palpitations and Denies dyspnea Respiratory Respiratory: Denies cough and Denies dyspnea Gastrointestinal Gastrointestinal: Denies abdominal pain, Denies nausea and Denies vomiting Endocrine Endocrine: Denies palpitations Physical Exam Vital Signs: Vital Signs: Last Vital Signs Temp 98.0 F 11/25/21 07:54 Pulse 95 11/25/21 07:54 Resp 18 11/25/21 07:54 BP 131/60 11/25/21 07:54 Pulse Ox 99 11/25/21 07:54 BMI result Body Mass Index 20.8 Const: General: cooperative, comfortable, alert and awake Nutritional Appearance: thin Resp: Effort & Inspection: normal respiratory effort and able to speak in complete sentences Cardio: Rate: regular rate Heart sounds: S1 normal heart sound present and S2 normal heart sound present GI: Inspection: No distended Palpation (GI): Soft to palpation Neuro: Other: grossly intact; able to move all 4 extremities spontaneously Extrem: General: Yes no pedal edema Objective Data Active Medications Acetaminophen (Acetaminophen 325 Mg Tablet) 650 mg PO Q6H PRN PRN Reason: Pain, Mild (Pain Scale 1-3) Amlodipine Besylate (Amlodipine Besylate 5 Mg Tablet) 5 mg PO DAILY [facility]; Protocol Last Admin: 11/25/21 09:22 Dose: 5 mg Documented by: KOFFI Aspirin (Aspirin Enteric Coated 81 Mg Tablet.) 81 mg PO DAILY [facility] Last Admin: 11/25/21 09:22 Dose: 81 mg Documented by: KOFFI Dextrose (Dextrose 50 % 25 Gm/50 Ml Syringe) 25 gm IVPUSH Q15M PRN; Protocol PRN Reason: per Hypoglycemia Standing Ord. Docusate Sodium (Docusate Sodium 100 Mg Capsule) 100 mg PO DAILY PRN PRN Reason: Constipation Glucose (Glucose Gel 15 Gm Gel..Gram.) 15 gm PO Q15M PRN; Protocol PRN Reason: per Hypoglycemia Standing Ord. Heparin Sodium (Porcine) (Heparin Sodium,Porcine 5,000 Unit/Ml Vial) 5,000 unit SUBCUT Q12H [facility] Last Admin: 11/25/21 05:30 Dose: 5,000 unit Documented by: NAVEED Levofloxacin (Levaquin) 500 mg in 100 mls @ 100 mls/hr IV ONCE ONE Stop: 11/25/21 12:41 Levofloxacin (Levaquin) 250 mg in 50 mls @ 50 mls/hr IV Q24H [facility] Insulin Human Lispro (Insulin Lispro 100 Unit/Ml 3 Ml Vial) 0 unit SUBCUT QIDACHS [facility]; Protocol Last Admin: 11/25/21 11:22 Dose: Not Given Documented by: KOFFI Non-Admin Reason: No Insulin Coverage Ondansetron HCl (Ondansetron Hcl 4 Mg/2 Ml Vial) 4 mg IVPUSH Q8H PRN PRN Reason: Nausea and Vomiting Sodium Chloride (0.9 % Sodium Chloride Flush 3 Ml Syringe) 3 ml IVFLUSH QSHIFT [facility] Last Admin: 11/25/21 09:22 Dose: 3 ml Documented by: KOFFI Tamoxifen Citrate (Tamoxifen Citrate 10 Mg Tablet) 20 mg PO DAILY [facility] Last Admin: 11/25/21 09:22 Dose: 20 mg Documented by: KOFFI Vitamin D (Cholecalciferol (Vitamin D3) 25 Mcg Tablet) 50 mcg PO DAILY [facility] Last Admin: 11/25/21 09:21 Dose: 50 mcg Documented by: KOFFI Labs CBC & Chem 7: 11/24/21 05:34 11/25/21 05:55 Labs: Laboratory Results - last 24 hr 11/24/21 11/24/21 11/24/21 11:24 15:12 18:56 Anion Gap Estim Creat Clear Calc Estimated GFR POC Glucose 139 H 136 H 141 H Random Glucose Calcium 11/25/21 11/25/21 11/25/21 05:55 07:31 11:11 Anion Gap 15 Estim Creat Clear Calc 27.6 Estimated GFR 33 POC Glucose 112 131 H Random Glucose 123 H Calcium 8.5 Microbiology Microbiology Results: Microbiology 11/23/21 17:01 Urine Culture - Preliminary Urine clean catch - Urine campbell top Gram negative artis Enterococcus/Streptococcus sp 11/23/21 Unknown Urine Culture - Final Urine clean catch - Urine campbell top Pseudomonas aeruginosa Enterococcus faecalis 11/23/21 05:57 Blood Culture - Preliminary Blood - Venous No growth after 48 hours. 11/23/21 05:57 Blood Culture - Preliminary Blood - Venous No growth after 48 hours. 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 near baseline UTI urine culture growing pseudomonas and enterococcus faecalis was initially treated with ceftriaxone, will change to renally -dosed Levaquin BCx negative to date hyperkalemia secondary to CHIDI resolved with lokelma diabetes - low-dose sliding scale insulin - diabetic diet hypertension - stable - continue Norvasc h/o breast CA continue tamoxifen DVT prophylaxis: Heparin subQ as the anemia likely not due to acute blood loss attending: dr. Chapa Dispo: Physical therapy recommends return to SNF when medically stable, unable to return to [facility] [place] until Friday Patient requires ongoing inpatient stay secondary to UTI need for IV antibiotics, CHIDI Quality Stroke Does the patient have a stroke diagnosis?: No VTE Prior VTE?: No VTE Risk Level:: Medical - moderate - high VTE Device Contraindication: N/A - Device Ordered VTE Drug Contraindication: Treatment Not Indicated
[2021-11-25 12:00] VITALS: TEMP 36.1
[2021-11-25] MEDS: levoFLOXacin/D5W 500 MG/100 ML PIGGYBACK 100 MG IV (12:06)
[2021-11-25 15:39] VITALS: BP 114/56; PULSE 85; RESP 18; TEMP 37.1; O2SAT 100
[2021-11-25 16:07] LABS: Glucose, Whole Blood 99 mg/dL (60-115)
[2021-11-25 19:23] VITALS: BP 144/75; PULSE 87; RESP 18; TEMP 37.1; O2SAT 98
[2021-11-25 20:06] LABS: Glucose, Whole Blood 168 mg/dL (60-115)
[2021-11-25 23:41] VITALS: BP 142/73; PULSE 89; RESP 16; TEMP 37.2; O2SAT 95
[2021-11-26] VITALS (8 sets, daily range): BP systolic 133–156; BP diastolic 58–96; PULSE 85–100; RESP 17–18; TEMP 36.2–37.3; O2SAT 93–100; BMI 20.8
[2021-11-26] MEDS: Heparin Sodium,Porcine 5,000 UNIT/ML VIAL 5000 UNIT SUBCUT ×2 (06:32→17:41)
[2021-11-26] MEDS: Cholecalciferol (Vitamin D3) 25 MCG TABLET 50 MCG PO (07:43)
[2021-11-26] MEDS: amLODIPine Besylate 5 MG TABLET PO (07:43)
[2021-11-26] MEDS: Aspirin Enteric Coated 81 MG TABLET.DR PO (07:43)
[2021-11-26] MEDS: Tamoxifen Citrate 10 MG TABLET 20 MG PO (07:43)
[2021-11-26] MEDS: 0.9 % Sodium Chloride Flush 3 ML SYRINGE IVFLUSH ×2 (07:43→19:47)
[2021-11-26 07:45] LABS: Glucose, Whole Blood 121 mg/dL (60-115)
[2021-11-26 11:35] LABS: COVID-19 Test Negative (Negative)
[2021-11-26 11:38] LABS: Glucose, Whole Blood 131 mg/dL (60-115)
[2021-11-26] MEDS: levoFLOXacin/D5W 250 MG/50 ML PIGGYBACK 50 MG IV (12:44)
[2021-11-26 15:51] LABS: Glucose, Whole Blood 141 mg/dL (60-115)
--- NOTE | 2021-11-26 15:59 | MHC.CM.PN ---
nurse caseworker ntoe electronic medical record reviewed along with case discussed with staff mabel ROJAS THE HOSPTILAIST MET WITH PATIENT AND SPOEK WITH HER HCP SON BY PHONE . PATIENT IS FROM [facility] , BUT WITH NO BED HOLD , TODAY THEY DO NOT AHVE BED AVAILABILITY AND DO NOT EXPEXT TO HAVE ANY FOR ABOUT A WEEK. THIS WAS INFORMED TO PATIENTS SON, [facility]. ALSO REFERRED TO [facility] , [facility] T/C TO P[ATIENT SON WITH THE [facility]OB[facility] INFORMATION
--- NOTE | 2021-11-26 15:59 | HO.PM.IMPN ---
Subjective Subjective Date of Service: 11/26/21 Review of Systems Follow up for UTI, hyperkalemia, anemia no bleeding no dysuria, abdominal pain, nausea or vomiting do dizziness Physical Exam Vital Signs: Vital Signs: Last Vital Signs Temp 98.7 F 11/26/21 15:34 Pulse 88 11/26/21 15:34 Resp 18 11/26/21 15:34 BP 133/58 L 11/26/21 15:34 Pulse Ox 99 11/26/21 15:34 BMI result Body Mass Index 20.8 Appearing in no acute distress LSCTA heart regular rate rhythm, clear S1, S2 positive bowel sounds, abdomen is soft, nontender neuro patient is alert x3, no focal deficits Objective Data Active Medications Acetaminophen (Acetaminophen 325 Mg Tablet) 650 mg PO Q6H PRN PRN Reason: Pain, Mild (Pain Scale 1-3) Amlodipine Besylate (Amlodipine Besylate 5 Mg Tablet) 5 mg PO DAILY [facility]; Protocol Last Admin: 11/26/21 07:43 Dose: 5 mg Documented by: KOFFI Aspirin (Aspirin Enteric Coated 81 Mg Tablet.) 81 mg PO DAILY [facility] Last Admin: 11/26/21 07:43 Dose: 81 mg Documented by: KOFFI Dextrose (Dextrose 50 % 25 Gm/50 Ml Syringe) 25 gm IVPUSH Q15M PRN; Protocol PRN Reason: per Hypoglycemia Standing Ord. Docusate Sodium (Docusate Sodium 100 Mg Capsule) 100 mg PO DAILY PRN PRN Reason: Constipation Glucose (Glucose Gel 15 Gm Gel..Gram.) 15 gm PO Q15M PRN; Protocol PRN Reason: per Hypoglycemia Standing Ord. Heparin Sodium (Porcine) (Heparin Sodium,Porcine 5,000 Unit/Ml Vial) 5,000 unit SUBCUT Q12H [facility] Last Admin: 11/26/21 06:32 Dose: 5,000 unit Documented by: NORM Levofloxacin (Levaquin) 250 mg in 50 mls @ 50 mls/hr IV Q24H [facility] Last Infusion: 11/26/21 14:46 Dose: 0 mls/hr Documented by: KOFFI Insulin Human Lispro (Insulin Lispro 100 Unit/Ml 3 Ml Vial) 0 unit SUBCUT QIDACHS [facility]; Protocol Last Admin: 11/26/21 12:01 Dose: Not Given Documented by: KOFFI Non-Admin Reason: No Insulin Coverage Ondansetron HCl (Ondansetron Hcl 4 Mg/2 Ml Vial) 4 mg IVPUSH Q8H PRN PRN Reason: Nausea and Vomiting Sodium Chloride (0.9 % Sodium Chloride Flush 3 Ml Syringe) 3 ml IVFLUSH QSHIFT [facility] Last Admin: 11/26/21 07:43 Dose: 3 ml Documented by: KOFFI Tamoxifen Citrate (Tamoxifen Citrate 10 Mg Tablet) 20 mg PO DAILY [facility] Last Admin: 11/26/21 07:43 Dose: 20 mg Documented by: KOFFI Vitamin D (Cholecalciferol (Vitamin D3) 25 Mcg Tablet) 50 mcg PO DAILY [facility] Last Admin: 11/26/21 07:43 Dose: 50 mcg Documented by: KOFFI Labs CBC & Chem 7: 11/24/21 05:34 11/25/21 05:55 Labs: Laboratory Results - last 24 hr 11/25/21 11/25/21 11/26/21 15:38 19:27 07:34 POC Glucose 99 168 H 121 H COVID-19 ([facility]) COVID-19 Clin Com 11/26/21 11/26/21 11/26/21 10:30 11:25 15:26 POC Glucose 131 H 141 H COVID-19 ([facility]) Negative COVID-19 Clin Com See Note Microbiology Microbiology Results: Microbiology 11/23/21 17:01 Urine Culture - Final Urine clean catch - Urine campbell top Assessment and Plan (1) Acute anemia: Status: Acute (2) Acute on chronic kidney failure: Status: Acute (3) UTI (urinary tract infection): Status: Acute (4) Acute hyperkalemia: Status: Acute Plan 81-year-old female with extensive past medical history as a pension above including CKD, chronic anemia presents to the hospital with abnormal labs found to have acute anemia, as well as hyperkalemia acute on chronic normocytic anemia likely 2/2 anemia of chronic dz occult stool blood negative s/p 1 PRBC transfusion with improvement H/H has remained stable 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 near baseline UTI urine culture growing pseudomonas and enterococcus faecalis was initially treated with ceftriaxone, will change to renally -dosed Levaquin BCx negative to date hyperkalemia secondary to CHIDI resolved with lokelma diabetes - low-dose sliding scale insulin - diabetic diet hypertension - stable - continue Norvasc h/o breast CA continue tamoxifen DVT prophylaxis: Heparin subQ as the anemia likely not due to acute blood loss attending: Dr. Torres Patient requires ongoing inpatient stay secondary to UTI need for IV antibiotics, CHIDI Quality Stroke Does the patient have a stroke diagnosis?: No VTE Prior VTE?: No VTE Risk Level:: Medical - moderate - high VTE Device Contraindication: N/A - Device Ordered VTE Drug Contraindication: Treatment Not Indicated
[2021-11-26 21:01] LABS: Glucose, Whole Blood 129 mg/dL (60-115)
[2021-11-27 04:00] VITALS: BP 114/80; PULSE 87; RESP 17; TEMP 37.1; O2SAT 97
[2021-11-27] MEDS: Heparin Sodium,Porcine 5,000 UNIT/ML VIAL 5000 UNIT SUBCUT (05:50)
[2021-11-27 07:35] VITALS: BP 145/72; PULSE 89; RESP 17; TEMP 37.1; O2SAT 100
[2021-11-27 07:42] LABS: Glucose, Whole Blood 126 mg/dL (60-115)
[2021-11-27] MEDS: Cholecalciferol (Vitamin D3) 25 MCG TABLET 50 MCG PO (07:50)
[2021-11-27] MEDS: Tamoxifen Citrate 10 MG TABLET 20 MG PO (07:50)
[2021-11-27] MEDS: 0.9 % Sodium Chloride Flush 3 ML SYRINGE IVFLUSH (07:51)
[2021-11-27] MEDS: amLODIPine Besylate 5 MG TABLET PO (07:51)
[2021-11-27] MEDS: Aspirin Enteric Coated 81 MG TABLET.DR PO (07:51)
[2021-11-27 09:02] VITALS: BP 145/72; PULSE 89; O2SAT 100
--- NOTE | 2021-11-27 09:13 | HO.PM.IMPN ---
Subjective Subjective Date of Service: 11/27/21 Review of Systems Follow up for UTI, hyperkalemia, anemia no bleeding no dysuria, abdominal pain, nausea or vomiting do dizziness Physical Exam Vital Signs: Vital Signs: Last Vital Signs Temp 98.8 F 11/27/21 07:35 Pulse 89 11/27/21 09:02 Resp 17 11/27/21 07:35 BP 145/72 H 11/27/21 09:02 Pulse Ox 100 11/27/21 09:02 BMI result Body Mass Index 20.8 Appearing in no acute distress lung sounds are clear to auscultation heart regular rate rhythm, clear S1, S2 positive bowel sounds, abdomen is soft, nontender neuro patient is alert, confused Objective Data Active Medications Acetaminophen (Acetaminophen 325 Mg Tablet) 650 mg PO Q6H PRN PRN Reason: Pain, Mild (Pain Scale 1-3) Amlodipine Besylate (Amlodipine Besylate 5 Mg Tablet) 5 mg PO DAILY [facility]; Protocol Last Admin: 11/27/21 07:51 Dose: 5 mg Documented by: PEE Aspirin (Aspirin Enteric Coated 81 Mg Tablet.) 81 mg PO DAILY [facility] Last Admin: 11/27/21 07:51 Dose: 81 mg Documented by: PEE Dextrose (Dextrose 50 % 25 Gm/50 Ml Syringe) 25 gm IVPUSH Q15M PRN; Protocol PRN Reason: per Hypoglycemia Standing Ord. Docusate Sodium (Docusate Sodium 100 Mg Capsule) 100 mg PO DAILY PRN PRN Reason: Constipation Glucose (Glucose Gel 15 Gm Gel..Gram.) 15 gm PO Q15M PRN; Protocol PRN Reason: per Hypoglycemia Standing Ord. Heparin Sodium (Porcine) (Heparin Sodium,Porcine 5,000 Unit/Ml Vial) 5,000 unit SUBCUT Q12H [facility] Last Admin: 11/27/21 05:50 Dose: 5,000 unit Documented by: NORM Levofloxacin (Levaquin) 250 mg in 50 mls @ 50 mls/hr IV Q24H [facility] Last Infusion: 11/26/21 14:46 Dose: 0 mls/hr Documented by: KOFFI Insulin Human Lispro (Insulin Lispro 100 Unit/Ml 3 Ml Vial) 0 unit SUBCUT QIDACHS [facility]; Protocol Last Admin: 11/27/21 07:44 Dose: Not Given Documented by: PEE Non-Admin Reason: No Insulin Coverage Ondansetron HCl (Ondansetron Hcl 4 Mg/2 Ml Vial) 4 mg IVPUSH Q8H PRN PRN Reason: Nausea and Vomiting Sodium Chloride (0.9 % Sodium Chloride Flush 3 Ml Syringe) 3 ml IVFLUSH QSHIFT [facility] Last Admin: 11/27/21 07:51 Dose: 3 ml Documented by: PEE Tamoxifen Citrate (Tamoxifen Citrate 10 Mg Tablet) 20 mg PO DAILY [facility] Last Admin: 11/27/21 07:50 Dose: 20 mg Documented by: PEE Vitamin D (Cholecalciferol (Vitamin D3) 25 Mcg Tablet) 50 mcg PO DAILY [facility] Last Admin: 11/27/21 07:50 Dose: 50 mcg Documented by: PEE Labs CBC & Chem 7: 11/24/21 05:34 11/25/21 05:55 Labs: Laboratory Results - last 24 hr 11/26/21 11/26/21 11/26/21 10:30 11:25 15:26 POC Glucose 131 H 141 H COVID-19 ([facility]) Negative COVID-19 Clin Com See Note 11/26/21 11/27/21 20:17 07:38 POC Glucose 129 H 126 H COVID-19 ([facility]) COVID-19 Clin Com Microbiology Microbiology Results: Microbiology 11/23/21 17:01 Urine Culture - Final Urine clean catch - Urine campbell top Assessment and Plan (1) Acute anemia: Status: Acute (2) Acute on chronic kidney failure: Status: Acute (3) UTI (urinary tract infection): Status: Acute (4) Acute hyperkalemia: Status: Acute Plan 81-year-old female with extensive past medical history as a pension above including CKD, chronic anemia presents to the hospital with abnormal labs found to have acute anemia, as well as hyperkalemia acute on chronic normocytic anemia likely 2/2 anemia of chronic dz occult stool blood negative s/p 1 PRBC transfusion with improvement H/H has remained stable 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 near baseline UTI urine culture growing pseudomonas and enterococcus faecalis was initially treated with ceftriaxone, will change to renally -dosed Levaquin BCx negative to date hyperkalemia secondary to CHIDI resolved with lokelma diabetes low-dose sliding scale insulin diabetic diet hypertension stable continue Norvasc h/o breast CA continue tamoxifen DVT prophylaxis: Heparin subQ as the anemia likely not due to acute blood loss attending: Dr. Brian HARLEY SNF placement pending, previous SNF did not have bed hold Patient requires ongoing inpatient stay secondary to UTI need for IV antibiotics, CHIDI Quality Stroke Does the patient have a stroke diagnosis?: No VTE Prior VTE?: No VTE Risk Level:: Medical - moderate - high VTE Device Contraindication: N/A - Device Ordered VTE Drug Contraindication: Treatment Not Indicated
[2021-11-27 11:00] VITALS: BP 111/55; PULSE 86; RESP 16; TEMP 36.8; O2SAT 97
[2021-11-27 11:09] LABS: Glucose, Whole Blood 162 mg/dL (60-115)
[2021-11-27] MEDS: Insulin Lispro 100 UNIT/ML 3 ML VIAL SUBCUT (11:37)
[2021-11-27] MEDS: levoFLOXacin/D5W 250 MG/50 ML PIGGYBACK IV (11:38)
--- NOTE | 2021-11-27 12:57 | PM.DS ---
DS: Providers Provider Date of Service: 11/27/21 Date of admission: 11/23/21 05:05 Primary care physician: Kingston Guzman MD Attending physician on discharge: Ayush Torres Discharging clinician: Octavia Levy DS: Diagnosis Discharge Diagnosis (1) Acute anemia: Status: Acute (2) Acute on chronic kidney failure: Status: Acute (3) UTI (urinary tract infection): Status: Acute (4) Acute hyperkalemia: Status: Acute DS: Summary Hospital Course Hospital Course: HP as per admitting provider 81-year-old female with past medical history of hypertension, hyperlipidemia, diabetes, history of DVT, vitamin-D deficiency, renal artery stenosis, PVD, multiple sclerosis, wheelchair-bound, CKD, history of breast cancer, history of chronic anemia, who presents to the hospital from residential facility for labs specifically worsening anemia with a hemoglobin of 6.1.? Patient is a poor historian but reports that she has not had any bloody stool, no bloody vomiting, no abdominal pain nausea or vomiting, no diarrhea constipation, no urinary symptoms.? She denies having any chest pain, shortness of breath, no dizziness, no headache, no change in vision. On arrival to the ED patient's vitals within normal limit Labs are significant for WBC count of 7.9, hemoglobin was found to be 6.4, hematocrit of 20.4, potassium 5.4, BUN of 46 creatinine of 2.32 with a baseline of around 31 and 1.4 respectively UA positive, Patient given 1 unit of PRBC with improvement of her hemoglobin to 8.4, she also received Lokelma 10 . Acute on chronic normocytic anemia likely 2/2 anemia of chronic dz occult stool blood negative s/p 1 PRBC transfusion with improvement H/H has remained stable 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? near baseline UTI urine culture growing pseudomonas and enterococcus faecalis was initially treated with ceftriaxone, will change to renally -dosed Levaquin Received total 5 days abx completed. Hyperkalemia secondary to CHIDI resolved with lokelma diabetes low-dose sliding scale insulin diabetic diet hypertension stable continue Norvasc h/o breast CA continue tamoxifen Time Spent with Patient Time attestation: Total time spent providing and/or coordinating discharge services: Discharge coordination time: Greater than 30 minutes Quality: Safe Use of Opioids Does Pt have an Active Cancer Diagnosis on the Problem List?: No Quality: Stroke Does the patient have a stroke diagnosis?: No Physical Exam Vital Signs: Vital Signs: Last Vital Signs Temp 98.3 F 11/27/21 11:00 Pulse 86 11/27/21 11:00 Resp 16 11/27/21 11:00 BP 111/55 L 11/27/21 11:00 Pulse Ox 97 11/27/21 11:00 BMI result Body Mass Index 20.8 Appearing in no acute distress head is normocephalic atraumatic eyes pupils are PERRLA sclera is anicteric mouth throat mucous membranes are intact and moist neck is supple no lymphadenopathy, no JVD noted lung sounds are clear to auscultation heart regular rate rhythm, clear S1, S2 positive bowel sounds, abdomen is soft, nontender neuro patient is alert, confused DS: Data Data Completed and Pending Completed studies during hospitalization [Text1]: Procedures Resection of Left Breast, Open Approach (08/02/21) Transfusion of Nonautologous Red Blood Cells into Peripheral Vein, Percutaneous Approach (08/02/21) Labs on day of discharge: Laboratory Results - last 24 hr 11/26/21 11/26/21 11/27/21 15:26 20:17 07:38 POC Glucose 141 H 129 H 126 H 11/27/21 11:05 POC Glucose 162 H Preliminary micro results at discharge 11/23/21 05:57 Blood Culture - Preliminary Blood - Venous No growth after 48 hours. 11/23/21 05:57 Blood Culture - Preliminary Blood - Venous No growth after 48 hours. 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 UTI Hyperkalemia Referrals: Po,Kingston Parker MD [Primary Care Provider] - 1 Week Discharge Medications: Continued atorvastatin 10 mg tablet 10 mg PO DAILY Qty: 90 3RF cholecalciferol (vitamin D3) 50 mcg (2,000 unit) capsule 50 mcg PO DAILY Qty: 90 3RF amlodipine 5 mg tablet 5 mg PO DAILY Qty: 90 3RF acetaminophen [Tylenol Extra Strength] 500 mg tablet 1,000 mg PO Q6H PRN (Reason: pain) Qty: 60 0RF tamoxifen 20 mg Tablet 20 mg PO DAILY Qty: 90 4RF calcium carbonate [Calcium 600] 600 mg calcium (1,500 mg) Tablet 600 mg PO BID Qty: 60 4RF aspirin [Adult Aspirin Regimen] 81 mg tablet,delayed release (DR/EC) 81 mg PO DAILY 0RF Senna Plus 8.6-50 mg capsule 1 tab-cap PO BEDTIME 0RF Discharge Orders: Discharge Order (Routine); Ordered 11/27/21 Ordered By: Octavia Levy Diet: advance to usual diet Activity on Discharge: As tolerated Stand Alone Forms: Patient Portal Discharge page Care Plan Goals: complete resolution of symptoms Health Concerns: Acute on chronic normocytic anemia 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
--- NOTE | 2021-11-27 13:48 | MHC.CM.PN ---
nurse major case detective note electronic medical record reviewed along with case discussed with staff mabel , hospitrohanit and patient ans her hcp son analilia [phone] i offered him [facility] , [facility] or [facility] and he chocse the [facility] , we accepted the bed offer all clinical dischagre ppaerwork and updates were faxed via ITC to them , staff nruse to call for nrusi e to nurse refport . discharge plan [facility] , str action bls 3;30 pm medicare imm updated information on [employer] application eliegabiltiy and given the [facility] financial; counselors number alos to the [facility]encys and to conndilma with medicare gove ,com com for these ratings patients son will meet patient at the nrusing faciltiy
--- NOTE | 2022-01-14 16:00 | MHC.HEMONCSW ---
THE FOLLOWING MESSAGE CAME TO ME. MABEL TRANSFERRED FROM [facility] TO [facility] BACK IN NOVEMBER OF THIS YEAR. BRIANNE, SON UNIQUE WILL NOTIFY US WHEN SHE IS DC'ED HOME. MEANWHILE SHE TAKES HER TAMOXIFEN.
== END 2021-11-27 16:10 | DRG 683 ==
LOC: HO.ED 11-23 02:48 → HO.EDOVER 11-23 05:09 → HO.S3 11-23 13:02
PROVIDERS: Nurse Practitioner Family; Physician Assistant; Physician Assistant Medical; Student in an Organized Health Care Education/Training Program; Admitting Provider Internal Medicine; Emergency Provider Emergency Medicine; PCP Internal Medicine; Visit Provider Nurse Practitioner Acute Care
DX: N17.9 Acute kidney failure, unspecified (principal); N39.0 Urinary tract infection, site not specified; D63.1 Anemia in chronic kidney disease; I12.9 Hypertensive chronic kidney disease with stage 1 through stage 4 chronic kidney disease, or unspecified chronic kidney disease; N18.4 Chronic kidney disease, stage 4 (severe); G35 Multiple sclerosis; E11.22 Type 2 diabetes mellitus with diabetic chronic kidney disease; E11.51 Type 2 diabetes mellitus with diabetic peripheral angiopathy without gangrene; E86.0 Dehydration; E87.5 Hyperkalemia; B96.5 Pseudomonas (aeruginosa) (mallei) (pseudomallei) as the cause of diseases classified elsewhere; B95.2 Enterococcus as the cause of diseases classified elsewhere; C50.912 Malignant neoplasm of unspecified site of left female breast; Z20.822 Contact with and (suspected) exposure to COVID-19; Z92.3 Personal history of irradiation; Z92.21 Personal history of antineoplastic chemotherapy; Z86.718 Personal history of other venous thrombosis and embolism; Z90.12 Acquired absence of left breast and nipple; Z87.891 Personal history of nicotine dependence; Z79.82 Long term (current) use of aspirin; Z79.810 Long term (current) use of selective estrogen receptor modulators (SERMs); Z79.899 Other long term (current) drug therapy
CPT/HCPCS: 36415; 36430; 80048; 80053; 81001; 82272; 82550; 82947; 83540; 83735; 84132; 84484; 85025; 85027; 86850; 86900; 86901; 86923; 87040; 87086; 87088; 87186; 87635; 93005; 96360; 97162; 97530; 99285; J0696; J1956; P9016